=== PATIENT | male | born 1950 | race Caucasian/White ===

== ENCOUNTER 2022-12-23 09:45 | Outpatient (OUT) | payer MEDICARE, BC, SELFPAY ==
[2022-12-23 12:03] LABS: Estimated Average Glucose 151 mg/dL; Glycohemoglobin A1C 6.9 % (4.5-6.2)
== END 2022-12-23 09:46 | disposition home or self-care (01) ==
LOC: LAB 09:49
PROVIDERS: PCP Internal Medicine; Visit Provider Internal Medicine
DX: E11.65 Type 2 diabetes mellitus with hyperglycemia (principal)
CPT/HCPCS: 36415; 83036

== ENCOUNTER 2023-03-23 09:47 | Outpatient (OUT) | payer MEDICARE, BC, SELFPAY ==
[2023-03-23 11:51] LABS: Prostate Specific Antigen Dx 1.57 ng/mL (<=4.00)
== END 2023-03-23 09:48 | disposition home or self-care (01) ==
LOC: LAB 09:49
PROVIDERS: PCP Internal Medicine; Visit Provider Urology
DX: C61 Malignant neoplasm of prostate (principal)
CPT/HCPCS: 36415; 84153

== ENCOUNTER 2023-06-23 08:19 | Outpatient (OUT) | payer MEDICARE, BC, SELFPAY ==
[2023-06-23 09:04] LABS: Basophils Absolute Auto 0.1 10^3/uL (0.0-0.1); Basophils Percent Auto 0.9 % (0.2-2.0); Eosinophils Absolute Auto 0.3 10^3/uL (0.0-0.7); Eosinophils Percent Auto 4.3 % (0.9-7.0); Hematocrit 50.3 % (42.0-54.0); Immature Granulocytes Abs Auto 0.04 10^3/uL (0.00-0.03); Immature Granulocytes Pct Auto 0.6 % (0.0-0.5); Lymphocytes Absolute Auto 1.9 10^3/uL (1.2-3.8); Lymphocytes Percent Auto 27.5 % (20.5-60.0); Mean Corpuscular HGB Conc 33.8 g/dL (29.9-35.2); Mean Corpuscular Volume 94.5 fL (80.0-94.0); Mean Platelet Volume 10.8 fL (9.5-13.5); Monocytes Absolute Auto 0.5 10^3/uL (0.3-0.8); Neutrophils Percent Auto 59.7 % (43.0-75.0); Platelet Count 229 10^3/uL (150-450); Red Blood Count 5.32 10^6/uL (4.70-6.10); Red Cell Distribution Width 12.8 % (11.0-15.0); White Blood Count 6.7 10^3/uL (4.0-11.0)
[2023-06-23 10:46] LABS: Microalbumin Urine Random 1.7 mg/dL (<=30.0)
[2023-06-23 11:23] LABS: Alanine Aminotransferase 52 U/L (16-63); Anion Gap 14.9; BUN Creatinine Ratio 13.5; Calcium 8.8 mg/dL (8.5-10.1); Carbon Dioxide 27.7 mmol/L (21.0-32.0); Chloride 104 mmol/L (98-107); Chol HDL Ratio 2.8; Cholesterol 139 mg/dL (<=200); Estimated GFR (African America >60 (>=60); Estimated GFR (Non-African Ame >60 (>=60); Glucose 137 mg/dL (74-106); HDL Cholesterol 50 mg/dL (40-60); LDL Cholesterol Calculated 70.8 mg/dL; Potassium 3.6 mmol/L (3.5-5.1); Sodium 143 mmol/L (136-145); Triglycerides 91 mg/dL (<=150); VLDL CHOLESTEROL 18.2 mg/dL
[2023-06-23 13:08] LABS: Estimated Average Glucose 157 mg/dL; Glycohemoglobin A1C 7.1 % (4.5-6.2)
== END 2023-06-23 08:20 | disposition home or self-care (01) ==
LOC: LAB 08:21
PROVIDERS: PCP Internal Medicine; Visit Provider Internal Medicine
DX: E11.65 Type 2 diabetes mellitus with hyperglycemia (principal); I10 Essential (primary) hypertension; E78.01 Familial hypercholesterolemia; Z79.899 Other long term (current) drug therapy
CPT/HCPCS: 36415; 80048; 80061; 82043; 83036; 84460; 85025

== ENCOUNTER 2023-07-03 13:54 | Outpatient (OUT) | payer MEDICARE, BC, SELFPAY ==
--- OUTSIDE RECORDS SUMMARY | 2023-07-03 13:59 | XMS_ITS | CCD ---
Author Name Unknown Address [address] [place] [address] Organization [facility] Care Team Providers Care Refinery Operator Name Role Phone Joseph Camacho DO Primary Care Provider López JOHNS, Gerry R Unavailable JOSEPH CAMACHO Primary Care Physician Joseph Camacho DO Primary Care Provider López JOHNS, Gerry R Unavailable Joseph Camacho Unavailable PARKER, DR AUDRA Walsh Admitting Unavailable PARKER, DR AUDRA Walsh Attending Unavailable BALL, DR HORAN Primary Care Unavailable PARKER, DR AUDRA Walsh Consulting Unavailable MENDOZA, GERRY Attending Unavailable BALL, DR HORAN Primary Care Unavailable MENDOZA, GERRY Consulting Unavailable MENDOZA, GERRY Admitting Unavailable BALL, DR HORAN Admitting Unavailable BALL, DR HORAN Attending Unavailable BALL, DR HORAN Consulting Unavailable BALL, DR HORAN Primary Care Unavailable MENDOZA, GERRY Attending Unavailable MENDOZA, GERRY Consulting Unavailable MENDOZA, GERRY Admitting Unavailable BALL, DR HORAN Primary Care Unavailable BALL, DR HORAN Admitting Unavailable BALL, DR HORAN Attending Unavailable BALL, DR HORAN Consulting Unavailable BALL, DR HORAN Primary Care Unavailable MENDOZA, GERRY Attending Unavailable BALL, DR HORAN Primary Care Unavailable MENDOZA, GERRY Consulting Unavailable MENDOZA, GERRY Admitting Unavailable MENDOZA, GERRY Consulting Unavailable BALL, DR HORAN Primary Care Unavailable MENDOZA, GERRY Admitting Unavailable MENDOZA, GERRY Attending Unavailable MENDOZA, GERRY Attending Unavailable BALL, DR HORAN Primary Care Unavailable MENDOZA, GERRY Admitting Unavailable MENDOZA, GERRY Consulting Unavailable ENGELER, DR AUDRA Walsh Consulting Unavailable ZIEBER, DR WILY Pascual Consulting Unavailable AGUBOSIM, SHARYN Consulting Unavailable GUSTAVO JIMÉNEZ Consulting Unavailable Joseph Camacho DO Primary Care Provider López JOHNS, Gerry R Unavailable ENGELER, G BRANDEN Referring Unavailable JOSEPH CAMACHO E Primary Care Unavailable ENGELERLa Attending Unavailable JOSEPH CAMACHO E Primary Care Unavailable ENGELER, G BRANDEN Attending Unavailable ENGELER, G BRANDEN Referring Unavailable MAURI, JOSEPH E Primary Care Unavailable ENGELER, G BRANDEN Referring Unavailable ENGELER, G BRANDEN Referring Unavailable MAURI, JOSEPH E Primary Care Unavailable ENGELER, G BRANDEN Attending Unavailable JOSEPH CAMACHO E Primary Care Unavailable ENGELER, G BRANDEN Referring Unavailable ENGELER, G BRANDEN Referring Unavailable MAURI, JOSEPH E Primary Care Unavailable LENA FERRARA Attending Unavailable MENDOZA, Gerry Pascual Attending Unavailable MENDOZA, Gerry Pascual Attending Unavailable MENDOZA, Gerry Pascual Attending Unavailable MENDOZA, Gerry Pascual Attending Unavailable MENDOZA, Gerry Pascual Attending Unavailable Allergies Allergy Classification Reported Allergen(s) Allergy Type Date of Onset Reaction(s) Facility (1 source) No Known Medication Allergies; Translations: [No Known Medication Allergies] Propensity to adverse reactions (disorder) [facility] Repository Medications Current Medications Medication Drug Class(es) Dates Sig (Normalized) Sig (Original) amLODIPine 5 mg / benazepril hydrochloride 20 mg oral capsule (20 sources) Dihydropyridine Calcium Channel Juan Francisco, Angiotensin Converting Enzyme Inhibitor Start: 01-24-2019 take 1 capsule by mouth once daily amLODIPine-benaze pril 5 mg-20 mg Cap 1 cap(s), Oral, Daily Start Date: 01/24/19 Status: Ordered Comment on above: Take 1 capsule by [facility] once daily. atorvastatin 20 mg oral tablet (19 sources) HMG-CoA Reductase Inhibitor Start: 01-24-2019 take 1 tablet by mouth once daily atorvastatin 20 mg Tab 20 mg = 1 tab(s), Oral, Daily Start Date: 01/24/19 Status: Ordered Comment on above: Take 20 mg by mouth daily at bedtime. hyoscyamine sulfate 0.12 mg / methenamine 118 mg / methylene blue 10 mg / phenyl salicylate 36 mg / sodium phosphate, monobasic 40.8 mg oral capsule (2 sources) Oxidation-Reduction Agent Start: 09-10-2022 Uribel oral capsule 1 cap(s), Oral, BID, 60 cap(s), Refill(s) 4, [facility]/pharmacy #[id number], 175, cm, 09/10/22 10:04:00 EDT, Height/Length Dosing, 88.9, kg, 09/10/22 10:04:00 EDT, Weight Dosing Start Date: 09/10/22 Status: Ordered metFORMIN hydrochloride 500 mg oral tablet (1 source) Biguanide Start: 06-23-2023 take 1 tablet by mouth twice daily metFORMIN HCl 500 MG 1 tablet with a meal Orally twice daily w/ food for 30 days Start by taking 1 daily w/ bkfst and increase to bkfst and supper after one month Jun, Active sildenafil 100 mg oral tablet (4 sources) Phosphodiesterase 5 Inhibitor Start: 12-10-2022 take 1 tablet by mouth once daily as needed Sildenafil Citrate 100 MG 1 tablet as needed Orally Once a day, as needed for ED Dec, Active tadalafil 20 mg oral tablet (5 sources) Phosphodiesterase 5 Inhibitor Tadalafil 20 MG 1 tablet Orally as needed Active tamsulosin hydrochloride 0.4 mg oral capsule (8 sources) alpha-Adrenergic Juan Francisco Start: 09-10-2022 End: 09-05-2023 take 1 capsule by mouth twice daily Flomax 0.4 mg Cap 0.4 mg = 1 cap(s), Oral, BID, X 30 day(s), # 60 cap(s), Refills(s) 11, Pharmacy: [facility]/pharmacy #[id number], 175, cm, 09/10/22 10:04:00 EDT, Height/Length Dosing, 88.9, kg, 09/10/22 10:04:00 EDT, Weight Dosing Start Date: 09/10/22 Stop Date: 09/05/23 Status: Ordered take 1 capsule by [facility] every twenty-four hours Tamsulosin HCl 0.4 MG 1 capsule Orally Once a day Active Comment on above: Take by mouth. Completed/Discontinued Medications Medication Drug Class(es) Dates Sig (Normalized) Sig (Original) ciprofloxacin 500 mg oral tablet (1 source) Quinolone Antimicrobial Start: 09-10-2022 Cipro 500 mg Tab 500 mg = 1 tab(s), Oral, As Directed, Patient to take 1 tab the day before procedure and the 2nd tab the day of procedure once completed, # 2 tab(s), Refills(s) 0, Pharmacy: [facility]/pharmacy #[id number], 175, cm, 09/10/22 10:04:00 EDT, Height/Length Dosing, 88.... Start Date: 09/10/22 Status: Ordered Multivitamins-Minera ls-Lutein (MULTIVITAMIN 50 PLUS) tab (8 sources) Multivitamins-Mi nerals-Lutein (MULTIVITAMIN 50 PLUS) tab Take 1 tablet by mouth once daily. 0 Active Comment on above: Take 1 tablet by carlos manuel th once daily. Naproxen (7 sources) Nonsteroidal Anti-inflammatory Drug Aleve Not-Taking/PRN Aleve Active 24 hr oxybutynin chloride 10 mg extended release oral tablet (5 sources) Cholinergic Muscarinic Antagonist Start: 10-03-2021 End: 04-17-2022 take 1 tablet by mouth once daily oxybutynin ER (DITROPAN XL) 10 mg 24 hr tablet Take 10 mg by mouth once daily. 0 10/03/2021 04/17/2022 Discontinued Comment on above: Take 10 mg by mouth once daily. sulfamethoxazole 800 mg / trimethoprim 160 mg oral tablet (5 sources) Dihydrofolate Reductase Inhibitor Antibacterial, Sulfonamide Antimicrobial Start: 10-03-2021 End: 04-17-2022 take 1 tablet by mouth every twelve hours sulfamethoxazole- trimethoprim (BACTRIM DS,SEPTRA DS) 800-160 mg per tablet Take 1 tablet by mouth q 12 HR. 0 10/03/2021 04/17/2022 Discontinued (Course of therapy completed) Comment on above: Take 1 tablet by carlos manuel th q 12 HR. Problems Active Problems Problem Classification Problem Date Documented Date Episodic/Chronic Calculus of urinary tract (12 sources) History of calculus of kidney; Translations: [Personal history of urinary calculi] Onset: 10-25-2021 08-02-2021 Episodic Cancer of prostate (20 sources) Malignant tumor of prostate; Translations: [Malignant neoplasm of prostate] Onset: 09-23-2021 Chronic Cancer of prostate (1 source) History of malignant neoplasm of prostate; Translations: [Personal history of malignant neoplasm of prostate] Episodic Diabetes mellitus with complications (7 sources) Type 2 diabetes mellitus; Translations: [Type 2 diabetes mellitus with hyperglycemia] Chronic Diabetes mellitus without complication (20 sources) Glycosuria; Translations: [Glycosuria] Onset: 10-25-2021 01-23-2020 Episodic Disorders of lipid metabolism (19 sources) Hyperlipidemia; Translations: [Pure hypercholesterolemia] Onset: 10-25-2021 09-09-2021 Chronic Essential hypertension (15 sources) Hypertensive disorder; Translations: [Essential hypertension] Onset: 06-30-2022 09-09-2021 Chronic Genitourinary symptoms and ill-defined conditions (9 sources) Nocturia; Translations: [Nocturia] Onset: 10-25-2021 Episodic Hyperplasia of prostate (15 sources) Benign prostatic hypertrophy with outflow obstruction; Translations: [Benign prostatic hyperplasia with lower urinary tract symptoms] Onset: 10-05-2017 Chronic Osteoarthritis (7 sources) Osteoarthritis of knee; Translations: [Unilateral primary osteoarthritis, left knee] Chronic Other aftercare (3 sources) Other watermelon inspector (current) drug therapy; Translations: [OTH EQUIPMENT MAINT TECH CURRENT DRUG THERAPY] Onset: 06-30-2022 Episodic Other connective tissue disease (7 sources) History of total knee arthroplasty; Translations: [Presence of left artificial knee joint] Chronic Other diseases of kidney and ureters (4 sources) Hydronephrosis 08-02-2021 Episodic Other male genital disorders (6 sources) Impotence of organic origin; Translations: [Erectile dysfunction due to arterial insufficiency] Chronic Other male genital disorders (3 sources) Erectile dysfunction due to arterial insufficiency; Translations: [Erectile dysfunction due to arterial insufficiency] Chronic Other non-traumatic joint disorders (7 sources) Knee pain; Translations: [Pain in left knee] Episodic Other nutritional; endocrine; and metabolic disorders (2 sources) Overweight in adulthood with body mass index of 25 or more but less than 30; Translations: [Body mass index (BMI) 29.0-29.9, adult] Onset: 11-27-2021 Episodic Other nutritional; endocrine; and metabolic disorders (4 sources) Body mass index 25-29 - overweight 11-11-2019 Episodic Other nutritional; endocrine; and metabolic disorders (4 sources) Overweight; Translations: [Overweight] Episodic Other nutritional; endocrine; and metabolic disorders (2 sources) Overweight Episodic Other screening for suspected conditions (not mental disorders or infectious disease) (5 sources) Raised prostate specific antigen; Translations: [Elevated prostate specific antigen [PSA]] Onset: 10-25-2021 05-24-2021 Episodic Residual codes; unclassified (5 sources) Family history of malignant neoplasm of gastrointestinal tract; Translations: [Family history of colon cancer] Episodic Unclassified (1 source) CONTACT W/AND (SUSP) EXPOS COVID-19; Translations: [CONTACT W/AND (SUSP) EXPOS COVID-19] Onset: 10-02-2021 Past or Other Problems Problem Classification Problem Date Documented Da te Episodic/Chronic Residual codes; unclassified (1 source) Family history of malignant neoplasm of prostate; Translations: [FAMILY HX MALIG NEOPLASM PROSTATE] Onset: 10-25-2021 Episodic Unclassified (5 sources) FOLLOW-UP SURGERY NEC; Translations: [FOLLOW-UP SURGERY NEC] Results Test Name Value Interpretation Reference Range Facility Ambulatory Visit Summaryon 1 Ambulatory Visit Summary LAMONT LUTZ :1950 Visit Date:03/25/2023 Ambulatory Visit Instructions Your Diagnosis Prostate CA BPH with urinary obstruction Tests Performed Urnls Dip Stick Auto w/o Microscopy POC [id number] Your Care Team Attending Physician - LÓPEZ JOHNS, Gerry Pascual Primary Care Physician - JOSEPH CAMACHO DO This Is Your Medications List hyoscyamine/methena/mblue/p henylsal/sodbiphos (Uribel oral capsule) tamsulosin (Flomax 0.4 mg Cap) Contact prescribing physician if questions or concerns amlodipine-benazepril (amLODIPine-benazepril 5 mg-20 mg Cap) atorvastatin (atorvastatin 20 mg Tab) Procedures Performed Cystoscope (09/30/2022), Brachytherapy (10/03/2021), MR/US fusion guided prostate biopsy (07/25/2021), Cystoscopy to remove object (02/07/2020), Lithotripsy (02/02/2020), Colonoscopy (2018), ESWL - Extracorporeal shockwave lithotripsy for renal calculus (03/13/2016), Cystoscopy and retrograde pyelography (02/17/2016), Appendectomy, Bilateral replacement of knee joints. Discharge Vitals Heart Rate (Peripheral) 87 Blood Pressure 127/84 Height 175 cm Height 69 in Weight 88.9 kg Weight 195.58 lb BMI 29.03 What to do next Scheduled Follow-Up Appointments Thursday 10:45 AM EDT With: LÓPEZ JOHNS, Gerry Pascual Where: [facility] Lab Reportson 03-25-2023 Lab Reports [id number] Kimberley [facility] Patient Educationon 03-25-20 Patient Education Oncology Brachytherapy for Prostate Cancer Brachytherapy for prostate cancer is a type of internal radiation treatment that involves placing a source of radiation right inside the prostate gland. This allows the delivery of a higher dose of radiation than would be possible with external radiation therapy treatment. There are many types of brachytherapy: ? Low-dose rate (LDR) therapy. This involves temporary or permanent implants of radioactive seeds or pellets that give off a low dose of radiation. ? Temporary low-dose implants are left in the prostate for 1?7 days. The radioactive material is contained within a delivery tool, which may be a needle, a small, thin tube (catheter), or another type of applicator. You will need to stay in the hospital while the delivery tool and radioactive material are in place. ? Permanent low-dose implants are left in the prostate. They slowly give off radiation for many months after they are inserted. After the radiation is gone, they just stay in the body. They do not cause any harm and are not removed. ? High-dose rate (HDR) therapy. This involves inserting a material that gives off a higher dose of radiation for only a few minutes. The radioactive material is often wires or ribbons contained within a delivery tool (needle, applicator, or catheter). The delivery tool is removed after treatment, and no radioactive material is left in the prostate. In brachytherapy, the radiation does not travel far from the prostate, so healthy tissues around the prostate receive only a small dose of radiation. This helps to protect those tissues from injury. In some cases, brachytherapy may be given along with external beam radiation. Tell a health care provider about: ? Any allergies you have. ? All medicines you are taking, including vitamins, herbs, eye drops, creams, and pgfl-pfx-jsyupib medicines. ? Any problems you or family members have had with anesthetic medicines. ? Any bleeding problems you have. ? Any surgeries you have had. ? Any medical conditions you have. ? Any prostate infections you have had. What are the risks? Generally, this is a safe procedure. However, problems may occur, including: ? Inflammation of the rectum. ? Problems getting or keeping an erection (erectile dysfunction). ? Inability to control when you urinate or have bowel movements (incontinence). ? Damage to nearby structures or organs. ? Diarrhea. ? Bleeding. What happens before the procedure? Staying hydrated Follow instructions from your health care provider about hydration, which may include: ? Up to 2 hours before the procedure ? you may continue to drink clear liquids, such as water, clear fruit juice, black coffee, and plain tea. Eating and drinking restrictions Follow instructions from your health care provider about eating and drinking, which may include: ? 8 hours before the procedure ? stop eating heavy meals or foods, such as meat, fried foods, or fatty foods. ? 6 hours before the procedure ? stop eating light meals or foods, such as toast or cereal. ? 6 hours before the procedure ? stop drinking milk or drinks that contain milk. ? 2 hours before the procedure ? stop drinking clear liquids. Medicines ? Ask your health care provider about: ? Changing or stopping your regular medicines. This is especially important if you are taking diabetes medicines or blood thinners. ? Taking medicines such as aspirin and ibuprofen. These medicines can thin your blood. Do not take these medicines unless your health care provider tells you to take them. ? Taking calw-xlf-mpkgfpo medicines, vitamins, herbs, and supplements. ? Follow your health care provider's instructions about cleaning out your bowels. Surgery safety Ask your health care provider: ? How your surgery site will be marked. ? What steps will be taken to help prevent infection. These may include: ? Removing hair at the procedure site. ? Washing skin with a germ-killing soap. ? Taking antibiotic medicine before and after the procedure. General instructions ? You may have exams or testing done before or after the procedure. Blood or urine samples may be taken. You may need imaging tests, such as a CT scan or an MRI. ? Do not use any products that contain nicotine or tobacco for at least 4 weeks before the procedure. This includes cigarettes, chewing tobacco, and vaping devices, such as e-cigarettes. If you need help quitting, ask your health care provider. ? Plan to have a responsible adult take you home from the hospital or clinic. ? Plan to have a responsible adult care for you for the time you are told after you leave the hospital or clinic. What happens during the procedure? ? An IV will be put into one of the veins in your arm or hand. ? You may be given: ? A medicine to help you relax (sedative). ? A medicine to numb the area (local anesthetic). ? A medicine to make you fall asleep (general anest (more content not included)... Normal [facility] Urology Office/Clinic Noteon 03-25-2023 Urology Office/Clinic Note Chief Complaint 6 month follow up to Cysto w/ PSA HPI Staff 6 month follow up to Cysto done 09/30/22 w/PSA. Current PSA 1.57 done 03/23/23. Previous PSA 1.48 done 09/08/22. Previous DX: BPH w/urinary obstruction, elevated PSA, glucosuria, prostate cancer. S/P Brachytherapy 10/03/21. Started Uribel BID per last visit, and started Flomax 0.4mg BID per last visit. IPSS SCORE 6. Dysuria: denies pain and burning Incomplete bladder emptying: denies Hematuria: denies visible blood Frequency: every 2-3 hours Urgency: denies Nocturia: 2x a night Stream: denies hesitancy, medium stream Leaking: denies Post void dripping: denies Wearing pads/ Depends: denies Urge incontinence: denies Stress incontinence: denies Incontinence without Sensory Awareness: denies Abdominal pain: denies Flank pain: denies Sexual complaints: denies History of Present Illness Tests reviewed: reviewed UA, PSA, consult note I have reviewed the previous health record information and history for this patient from Dr. Mendoza. I have reviewed and verified the staff HPI to be accurate for this encounter. There have been no associated fever, chills, flank pain, or blood in the urine. Denies any urinary infections since last encounter. Review of Systems PHQ Score Initial Depression Screen Score: 0 ROS - Provider Constitutional: denies weight loss, denies hot flashes. Eyes: denies eye problems. Gastrointestinal: denies nausea, denies vomiting. Cardiovascular: denies chest pain or angina. Integumentary: no dryness Musculoskeletal: denies musculoskeletal symptoms. ENMT: denies otolaryngeal symptoms. Respiratory: no shortness of breath. Heme/Lymph: denies easy bleeding tendency, denies easy bruising tendency. Psychiatric: no confusion, no anxiety. Genitourinary: See HPI. Physical Exam Vitals & Measurements HR: 87(Peripheral) BP: 127/84 HT: 69 in HT: 175 cm WT: 88.9 kg WT: 195.58 lb BMI: 29.03 General Appearance: alert, no distress, well nourished, well developed male. Genitourinary: normal scrotum, normal testes, normal urethra, normal epididymis, normal vas deferens/spermatic cord. Flank Pain: none. Bladder: nonpalpable. Assessment/Plan Hematuria workup 09/2022 neg for malignancy. 1. Prostate CA (C61: Malignant neoplasm of prostate) PSA: 10/28/21 - 7.79 03/03/22 - 2.70 09/08/22 - 1.48 03/23/23 - 1.57 MRI fusion prostate bx - Irma 6 (3+3), GG1, x 11 cores S/P Brachytherapy 10/03/21. PSA increased from prior, should be cont to decrease after brachy. Will cont to monitor. Started Uribel bid at prior OV due to burning with urination and urgency. No burning or blood. Follow up 6 mos with PSA or sooner if needed. Pt understands and agrees with plan. 2. BPH with urinary obstruction (N40.1: Benign prostatic hyperplasia with lower urinary tract symptoms) UA today negative for blood and infection. Started Flomax 0.4 mg bid at prior OV due to nocturia q1-2hr. Nocturia decreased to 2x/night. No SEs. Emptying has improved. Pt seems very satisfied with sx control from alpha juan francisco. IPSS 6 (24). Follow-up With When Contact Information LÓPEZ JOHNS, Gerry Pascual, URL [facility] [address], [place] [address]- Additional Instructions: 6 mos PSA Patient Education Brachytherapy for Prostate Cancer Elyse Vang, personally scribed for Dr. Mendoza on 03/25/2023 09:32:16. . Documentation recorded by the scribe, Elyse Blum, accurately reflects the services(s) I performed and decisions made by me. Authenticated by Dr. Mendoza on 03/25/2023 09:33:29. Problem List/Past Medical History Ongoing BMI 29.0-29.9,adult BPH with urinary obstruction Elevated PSA Glucosuria Gross hematuria Hyperlipidemia Hypertension Prostate CA Historical History of kidney stones Hydronephrosis with obstructing calculus Nocturia Procedure/Surgical History Cystoscope (09/30/2022), Brachytherapy (10/03/2021), MR/US fusion guided prostate biopsy (07/25/2021), Cystoscopy to remove object (02/07/2020), Lithotripsy (02/02/2020), Colonoscopy (2018), ESWL - Extracorporeal shockwave lithotripsy for renal calculus (03/13/2016), Cystoscopy and retrograde pyelography (02/17/2016), Appendectomy, Bilateral replacement of knee joints. Medications amLODIPine-benazepril 5 mg-20 mg Cap, 1 cap(s), Oral, Daily atorvastatin 20 mg Tab, 20 mg= 1 tab(s), Oral, Daily Flomax 0.4 mg Cap, 0.4 mg= 1 cap(s), Oral, BID, 11 refills Uribel oral capsule, 1 cap(s), Oral, BID, 4 refills Allergies No Known Medication Allergies Social History Alcohol - Low Risk, 06/24/2021 Current, 1-2 times per month, 01/24/2019 Substance Abuse - Denies Substance Abuse, 06/24/2021 Tobacco - Denies Tobacco Use, 06/24/2021 Former smoker, quit more than 30 days ago Tobacco Use:. Never Smokeless Tobacco Use:. Cigarettes, 03/25/2023 Family History Arthritis: Mother. Hypertension: (more content not included)... [facility] Comment on above: Result Comment: Elec tronically Signed By: Gerry MENDOZA MD\.br\Date and Time Signed: 03/25/23 09:33 EDT\.br\Electronically Co-Signed By: Elyse Blum.br\Date and Time Co-Signed: 03/25/23 09:32 EDT Consultation Noteon 10-22-19 Consultation Note [id number]:[id number] [facility] CNOVon 10-16-2022 CNOV Office Visit (RADTSA ) LAMONT LUTZ ([id number]) 1950 M Date Time Provider Department 10/16/22 2:00 PM La MUNOZ During your visit today, we recorded the following information about you: Temperature Pulse Respiration Blood pressure 97.3 degrees 93/minute 16/minute 150/87 Weight 89.5 kg La Munoz MD 10/16/2022 2:08 PM Signed Radiation Oncology - Follow Up Note PATIENT NAME: Lamont Lutz PATIENT DIAGNOSIS: Prostate adenocarcinoma, initial PSA 5.93, biopsy Theresa score 3 + 3 = 6 (grade group 1), clinical stage T1c, N0, M0, stage I [cT1a-c/T2a, N0, M0, PSA <10, GG 1] (AJCC 8th ed.), s/p MR Targeted biopsy. RADIATION SUMMARY: Prostate I-125 brachytherapy implant, 10/03/2021, 145 Gy, 85 sources, 32.81 mCi. INTERVAL HISTORY: Doing well. Was having some frequency issues with some dysuria, placed on Flomax with significant improvement near resolution. No other new problems. 11/14/21:Doing well. Still with some increased urinary urgency and frequency occasional dysuria. Overall improving. No hematuria. PSA HISTORY: PSA (ng/mL) Date Value 10/28/2021 7.79 PSA. (no units) Date Value 09/08/2022 1.48 04/15/2022 2.03 ALLERGIES No Known Allergies tamsulosin (FLOMAX) 0.4 mg Take by mouth. amLODIPine-benazepril (LOTREL) 5-20 mg per capsule Take 1 capsule by mouth once daily. atorvastatin (LIPITOR) 20 mg tablet Take 20 mg by mouth daily at bedtime. Asvalbxhokaty-Gaoabyms-Phuq in (MULTIVITAMIN 50 PLUS) tab Take 1 tablet by mouth once daily. REVIEW OF SYSTEMS: D/N = 4-6/1-3 Hematuria: no AUA: 19 Bowel movement frequency: 1/day Bowel movement quality: normal Blood per rectum: none Androgen deprivation: Never. PHYSICAL EXAM: BP 150/87 Pulse 93 Temp 36.3 ?C (97.3 ?F) Resp 16 Wt 89.5 kg (197 lb 6.4 oz) SpO2 96% BMI 28.73 kg/m? KPS: 100 General appearance: Alert and oriented. No acute distress. Rectal exam def Extremities: No deformities, edema, skin discoloration, clubbing or cyanosis. Lymph Nodes: No cervical lymphadenopathy, No supraclavicular lymphadenopathy, No axillary lymphadenopathy. Skin: Skin color, texture, turgor normal, no suspicious rashes or lesions. ASSESSMENT/PLAN: Prostate adenocarcinoma, initial PSA 5.93, biopsy Theresa score 3 + 3 = 6 (grade group 1), clinical stage T1c, N0, M0, stage I [cT1a-c/T2a, N0, M0, PSA <10, GG 1] (AJCC 8th ed.), s/p MR Targeted biopsy. Status post prostate brachytherapy implant September 2021. Doing well. PSA continues to decline. Anticipate PSA kevin between 18 and 24 months. He is continue close follow-up with Dr. Mendoza including surveillance of his PSA. Otherwise asked patient come back in 1 year for further close radiation follow-up visit. Signed by: La Munoz MD cc: Joseph Camacho ([facility] [place]) [address] [place] [address] Dr. Mendoza Referring Provider: La MUNOZ [[id number]] Allergies As of Date: 10/16/2022 (No Known Allergies) Date Reviewed: 10/16/2022 Reviewed by: Meche Gusman RN - Fully Assessed Reason for Visit: Prostate Cancer [590] Primary Visit Diagnosis:History of prostate cancer [Z85.46] Order(s):PSA (OUTSIDE) [[id number]] Order #: [id number] Prescriptions as of 10/16/2022 - tamsulosin (FLOMAX) 0.4 mg Take by mouth. - amLODIPine-benazepril (LOTREL) 5-20 mg per capsule Take 1 capsule by mouth once daily. - atorvastatin (LIPITOR) 20 mg tablet Take 20 mg by mouth daily at bedtime. - Sjptyaipqrwkw-Nkxdyeir-Ajld in (MULTIVITAMIN 50 PLUS) tab Take 1 tablet by mouth once daily. Problem List As Of Date 10/16/2022 Noted Resolved Prostate cancer (HCC) [C61] 10/16/2022 10/16/2022 Disposition: Return in about 1 year (around 10/17/2023). Follow-up and Disposition History for Encounter Date Provider Department Center 10/16/2022 [id number] MUNOZ NANCY GALINDO Encounter Status:Closed by La MUNOZ on 10/16/22 Normal [facility] CNOVSPon 10-16-2022 CNOVSP Visit (SP) Office (H EMASA) LAMONT LUTZ ([id number]) 1950 M Date Time Provider Department 10/16/22 2:30 PM LENA FERRARA During your visit today, we recorded the following information about you: Lena Ferrara APRN.CNP 10/16/2022 2:20 PM Signed Lamont Lutz returns for scheduled follow-up. Patient was seen and examined by Dr. Munoz today. He has recovered from brachytherapy to the prostate. He is having some sexual dysfunction. He has tried Cialis in the past without success. I have made him aware that we do have specialist within the [facility] system to help with impotence. Patient was given treatment summary and survivorship care plan for prostate cancer. Lena Ferrara APRN.CNP Referring Provider: La MUNOZ [[id number]] Allergies As of Date: 10/16/2022 (No Known Allergies) Date Reviewed: 10/16/2022 Reviewed by: Lena Ferrara APRN.CNP - Fully Assessed Visit Diagnosis:Prostate cancer (HCC) [C61] Prescriptions as of 10/16/2022 - tamsulosin (FLOMAX) 0.4 mg Take by mouth. - amLODIPine-benazepril (LOTREL) 5-20 mg per capsule Take 1 capsule by mouth once daily. - atorvastatin (LIPITOR) 20 mg tablet Take 20 mg by mouth daily at bedtime. - Ltuegfvmzzwno-Rxzvcbxd-Pjrg in (MULTIVITAMIN 50 PLUS) tab Take 1 tablet by mouth once daily. Problem List As Of Date 10/16/2022 Noted Resolved Prostate cancer (HCC) [C61] 10/16/2022 10/16/2022 Encounter Status:Closed by LENA FERRARA on 10/16/22 Normal [facility] Operative Reporton Operative Report [id number]:127 Normal [facility] Consent for Procedure/Surger yon 09-23-2022 Consent for Procedure/Surgery [id number]:127 Normal [facility] Lab Reportson 09-22-2022 Lab Reports [id number]:127 Normal [facility] Urine Cytology ( Labs)on 0 09-15-2022 Urine Cytology Diagnosis Info Invalid Interpretation Code [facility] Comment on above: Result Comment: A:Ur ine,Urine:Voided Interpretation - MicroScopic Description - Adequacy - Gross Description Site ID:A color Yellow fixative Alcohol Specimen designated Urine received in alcohol preservative and labeled with the patient?s name, consists of 30ml cloudy yellow fluid. Electronically signed by : on: 09/15/2022 09:39:37 Performed By: #### 1 [id number] ####[facility] [address] [place] [address] [place] 09-11-2022 Screens [id number]:127 Normal [facility] Ambulatory Visit Summaryon 0 09-10-2022 Ambulatory Visit Summary LAMONT LUTZ :1950 Visit Date:09/10/2022 Ambulatory Visit Instructions Your Diagnosis Prostate CA BPH with urinary obstruction Glucosuria Gross hematuria Nocturia Tests Performed Urnls Dip Stick Auto w/o Microscopy POC 83455 Your Care Team Attending Physician - Gerry MENDOZA MD Primary Care Physician - JOSEPH CAMACHO DO This Is Your Medications List Contact prescribing physician if questions or concerns amlodipine-benazepril (amLODIPine-benazepril 5 mg-20 mg Cap) atorvastatin (atorvastatin 20 mg Tab) Procedures Performed Brachytherapy (10/03/2021), MR/US fusion guided prostate biopsy (07/25/2021), Cystoscopy to remove object (02/07/2020), Lithotripsy (02/02/2020), Colonoscopy (2018), ESWL - Extracorporeal shockwave lithotripsy for renal calculus (03/13/2016), Cystoscopy and retrograde pyelography (02/17/2016), Appendectomy, Bilateral replacement of knee joints. Discharge Vitals Heart Rate (Peripheral) 89 Blood Pressure 140/87 Height 175 cm Height 69 in Weight 88.9 kg Weight 195.58 lb BMI 29.03 What to do next You Need to Schedule the Following Appointments Follow Up with Gerry MENDOZA MD, [place] When: Where: [facility] [address] [place] [address]- Medications What How Much When Instructions Unchanged amlodipine-benazepril (amLODIPine-benazepril 5 mg-20 mg Cap) 1 Capsules By Mouth Every day Contact prescribing physician if questions or concerns Unchanged atorvastatin (atorvastatin 20 mg Tab) 1 Tablets By Mouth Every day Contact prescribing physician if questions or concerns Test Results Urnls Dip Stick Auto w/o Microscopy POC 27192 (09/10/2022) Bilirubin Urine Dipstick - Negative Blood Urine Dipstick - 3+ Large Glucose Urine Dipstick - 2+ 500 mg/dl Ketones Urine Dipstick - Trace - 5 mg/dl Leukocytes Urine Dipstick - Negative Nitrite Urine Dipstick - Negative Protein Urine Dipstick - 2+ (100 mg/dl) Specific Mobile Urine Dipstick - 1.025 Urine Appearance Urine Dipstick - Clear Urine Color Urine Dipstick - Yellow Urobilinogen Urine Dipstick - Normal 0.2-1 EU/dl pH Urine Dipstick - 5.5 Allergies No Known Medication Allergies Problems Ongoing - Any problem that you are currently receiving treatment for. BMI 29.0-29.9,adult BPH with urinary obstruction Elevated PSA Glucosuria Gross hematuria Hyperlipidemia Hypertension Nocturia Prostate CA Historical - Any problem that you are no longer receiving treatment for. History of kidney stones Hydronephrosis with obstructing calculus Education Materials Prostate Cancer The prostate is a walnut-sized gland that is involved in the production of semen. It is located below a man's bladder, in front of the rectum. Prostate cancer is the abnormal growth of cells in the prostate gland. What are the causes? The exact cause of this condition is not known. What increases the risk? This condition is more likely to develop in men who: ? Are older than age 65. ? Are -Panamanian. ? Are obese. ? Have a family history of prostate cancer. ? Have a family history of breast cancer. What are the signs or symptoms? Symptoms of this condition include: ? A need to urinate often. ? Weak or interrupted flow of urine. ? Trouble starting or stopping urination. ? Inability to urinate. ? Pain or burning during urination. ? Painful ejaculation. ? Blood in urine or semen. ? Persistent pain or discomfort in the lower back, lower abdomen, hips, or upper thighs. ? Trouble getting an erection. ? Trouble emptying the bladder all the way. How is this diagnosed? This condition can be diagnosed with: ? A digital rectal exam. For this exam, a health care provider inserts a gloved finger into the rectum to feel the prostate gland. ? A blood test called a prostate-specific antigen (PSA) test. ? An imaging test called transrectal ultrasonography. ? A procedure in which a sample of tissue is taken from the prostate and examined under a microscope (prostate biopsy). Once the condition is diagnosed, tests will be done to determine how far the cancer has spread. This is called staging the cancer. Staging may involve imaging tests, such as: ? A bone scan. ? A CT scan. ? A PET scan. ? An MRI. The stages of prostate cancer are as follows: ? Stage I. At this stage, the cancer is found in the prostate only. The cancer is not visible on imaging tests and it is usually found by accident, such as during a prostate surgery. ? Stage II. At this stage, the cancer is more advanced than it is in stage I, but the cancer has not spread outside the prostate. ? Stage III. At this stage, the cancer has spread beyond the outer layer of the prostate to nearby tissues. The cancer may be found in the seminal vesicles, which are near the bladder and the prostate. ? (more content not included)... Normal [facility] Patient Educationon 09-11-19 Patient Education Oncology Prostate Cancer The prostate is a walnut-sized gland that is involved in the production of semen. It is located below a man's bladder, in front of the rectum. Prostate cancer is the abnormal growth of cells in the prostate gland. What are the causes? The exact cause of this condition is not known. What increases the risk? This condition is more likely to develop in men who: ? Are older than age 65. ? Are -Panamanian. ? Are obese. ? Have a family history of prostate cancer. ? Have a family history of breast cancer. What are the signs or symptoms? Symptoms of this condition include: ? A need to urinate often. ? Weak or interrupted flow of urine. ? Trouble starting or stopping urination. ? Inability to urinate. ? Pain or burning during urination. ? Painful ejaculation. ? Blood in urine or semen. ? Persistent pain or discomfort in the lower back, lower abdomen, hips, or upper thighs. ? Trouble getting an erection. ? Trouble emptying the bladder all the way. How is this diagnosed? This condition can be diagnosed with: ? A digital rectal exam. For this exam, a health care provider inserts a gloved finger into the rectum to feel the prostate gland. ? A blood test called a prostate-specific antigen (PSA) test. ? An imaging test called transrectal ultrasonography. ? A procedure in which a sample of tissue is taken from the prostate and examined under a microscope (prostate biopsy). Once the condition is diagnosed, tests will be done to determine how far the cancer has spread. This is called staging the cancer. Staging may involve imaging tests, such as: ? A bone scan. ? A CT scan. ? A PET scan. ? An MRI. The stages of prostate cancer are as follows: ? Stage I. At this stage, the cancer is found in the prostate only. The cancer is not visible on imaging tests and it is usually found by accident, such as during a prostate surgery. ? Stage II. At this stage, the cancer is more advanced than it is in stage I, but the cancer has not spread outside the prostate. ? Stage III. At this stage, the cancer has spread beyond the outer layer of the prostate to nearby tissues. The cancer may be found in the seminal vesicles, which are near the bladder and the prostate. ? Stage IV. At this stage, the cancer has spread other parts of the body, such as the lymph nodes, bones, bladder, rectum, liver, or lungs. How is this treated? Treatment for this condition depends on several factors, including the stage of the cancer, your age, personal preferences, and your overall health. Talk with your health care provider about treatment options that are recommended for you. Common treatments include: ? Observation for early stage prostate cancer (active surveillance). This involves having exams, blood tests, and in some cases, more biopsies. For some men, this is the only treatment needed. ? Surgery. Types of surgeries include: ? Open surgery. In this surgery, a larger incision is made to remove the prostate. ? A laparoscopic prostatectomy. This is a surgery to remove the prostate and lymph nodes through several, small incisions. It is often referred to as a minimally invasive surgery. ? A robotic prostatectomy. This is a surgery to remove the prostate and lymph nodes with the help of a robotic arm that is controlled by a computer. ? Orchiectomy. This is a surgery to remove the testicles. ? Cryosurgery. This is a surgery to freeze and destroy cancer cells. ? Radiation treatment. Types of radiation treatment include: ? External beam radiation. This type aims beams of radiation from outside the body at the prostate to destroy cancerous cells. ? Brachytherapy. This type uses radioactive needles, seeds, wires, or tubes that are implanted into the prostate gland. Like external beam radiation, brachytherapy destroys cancerous cells. An advantage is that this type of radiation limits the damage to surrounding tissue and has fewer side effects. ? High-intensity, focused ultrasonography. This treatment destroys cancer cells by delivering high-energy ultrasound waves to the cancerous cells. ? Chemotherapy medicines. This treatment kills cancer cells or stops them from multiplying. ? Hormone treatment. This treatment involves taking medicines that act on one of the male hormones (testosterone): ? By stopping your body from producing testosterone. ? By blocking testosterone from reaching cancer cells. Follow these instructions at home: ? Take oyuy-nah-jaztgrw and prescription medicines only as told by your health care provider. ? Maintain a healthy diet. ? Get plenty of sleep. ? Consider joining a support group for men who have prostate cancer. Meeting with a support group may help you learn to cope with the stress of having cancer. ? Keep all follow-up visits as told by your health care provider. This is important. ? If you have to go to the hospital, notify your cancer specialis (more content not included)... Normal [facility] Urine Cytology ([facility])on 0 09-10-2022 Method of Extraction Voided Normal [facility] Comment on above: Performed By: #### 1 [id number] ####[facility] [id number] [place] [address] Number of Jars 1 Invalid Interpretation Code [facility] Comment on above: Performed By: #### 1 [id number] ####[facility] [address] [place] [address] Specimen Urine Normal [facility] Comment on above: Performed By: #### 1 [id number] ####[facility] [address] [place] [address] Type of Service Prof Only Normal [facility] Comment on above: Performed By: #### 1 [id number] ####[facility] [address] [place] [address] Urology Office/Clinic Noteon 09-10-2022 Urology Office/Clinic Note Chief Complaint 6 month follow up HPI Staff 6 month follow up w/PSA. Current PSA 1.48 done 09/08/22, previous PSA 2.70 done 03/03/22. Previous DX: BPH w/urinary obstruction, elevated PSA, glucosuria, prostate cancer. S/P Brachytherapy 10/03/21. Dysuria: yes pain and burning started after he had Brachytherapy surgery last year in September, Incomplete bladder emptying: denies Hematuria: yes visible blood clot in urine every once in awhile, UA shows LARGE Frequency: yes when intake a lot of fluids Urgency: moderate intermittent Nocturia: sometimes every hour, sometimes every 2 hours Stream: denies hesitancy, denies weak stream Leaking: denies Post void dripping: denies Wearing pads/ Depends: denies Urge incontinence: denies Stress incontinence: denies Incontinence without Sensory Awareness: denies Abdominal pain: denies Flank pain: denies Sexual complaints: denies History of Present Illness Tests reviewed: reviewed UA, PSA. I have reviewed the previous health record information and history for this patient from Dr. Mendoza. I have reviewed and verified the staff HPI to be accurate for this encounter. There have been no associated fever, chills, flank pain, or blood in the urine. Denies any urinary infections since last encounter. Review of Systems PHQ Score Initial Depression Screen Score: 0 ROS - Provider Constitutional: denies weight loss, denies hot flashes. Eyes: denies eye problems. Gastrointestinal: denies nausea, denies vomiting. Cardiovascular: denies chest pain or angina. Integumentary: no dryness Musculoskeletal: denies musculoskeletal symptoms. ENMT: denies otolaryngeal symptoms. Respiratory: no shortness of breath. Heme/Lymph: denies easy bleeding tendency, denies easy bruising tendency. Psychiatric: no confusion, no anxiety. Genitourinary: See HPI. Physical Exam Vitals & Measurements HR: 89(Peripheral) BP: 140/87 HT: 69 in HT: 175 cm WT: 88.9 kg WT: 195.58 lb BMI: 29.03 General Appearance: alert, no distress, well nourished, well developed male. Genitourinary: normal scrotum, normal testes, normal urethra, normal epididymis, normal vas deferens/spermatic cord. Flank Pain: none. Bladder: nonpalpable. Assessment/Plan 1. Prostate CA (C61: Malignant neoplasm of prostate) PSA: 10/28/21 - 7.79 03/03/22 - 2.70 09/08/22 - 1.48 S/P Brachytherapy 10/03/21. Still having burning with urination. Having urgency episodes. PSA continues to decrease post brachy. Will continue to monitor. Offered med to help with burning and urgency. Follow up 6 mos with PSA or sooner if needed. Pt understands and agrees with plan. -Start Uribel BID x 60 ct with 4 refills. Rx sent to [facility]. 2. BPH with urinary obstruction (N40.1: Benign prostatic hyperplasia with lower urinary tract symptoms) IPSS 24. 3. Glucosuria (R81: Glycosuria) UA today shows 500 mg/dl ( >1,000). 4. Gross hematuria (R31.0: Gross hematuria) UA today shows large blood. Sees a blood clot about once a week or once every two weeks. Should not be seeing blood 1 year post brachy. Likely radiation effect, will schedule cysto to rule out bladder malignancy. Will schedule cysto. The risks and benefits for cystoscopy have been discussed. The risks include bleeding, infection, and irritation of the bladder and urinary channel, among others. The patient, after being informed of procedural details and after questions have been answered, wishes to proceed. Full informed consent has been obtained. Will order Local anesthesia. Prophylactic abx sent to [facility]. 5. Nocturia (R35.1: Nocturia) q1-2hr. -Start Flomax 0.4 mg BID. SEs discussed. Rx sent to [facility]. Follow-up With When Contact Information LÓPEZ JOHNS, Gerry Pascual, URL [facility] [address], [place] [address]- Additional Instructions: schedule cysto, 6 mos with PSA Patient Education Prostate Cancer I, Elyse Blum, personally scribed for Dr. Mendoza on 09/10/2022 11:01:19. . Documentation recorded by the scribe, Elyse Blum, accurately reflects the services(s) I performed and decisions made by me. Authenticated by Dr. Mendoza on 09/10/2022 11:05:44. Problem List/Past Medical History Ongoing BMI 29.0-29.9,adult BPH with urinary obstruction Elevated PSA Glucosuria Gross hematuria Hyperlipidemia Hypertension Nocturia Prostate CA Historical History of kidney stones Hydronephrosis with obstructing calculus Procedure/Surgical History Brachytherapy (10/03/2021), MR/US fusion guided prostate biopsy (07/25/2021), Cystoscopy to remove object (02/07/2020), Lithotripsy (02/02/2020), Colonoscopy (2018), ESWL - Extracorporeal shockwave lithotripsy for renal calculus (03/13/2016), Cystoscopy and retrograde pyelography (02/17/2016), Appendectomy, Bilateral replacement of knee joints. Medications amLODIPine-benazepril 5 mg-20 mg Cap, 1 cap(s), Oral, Daily a (more content not included)... Normal [facility] Comment on above: Result Comment: Elec tronically Signed By: LÓPEZ JOHNS, Gerry Pascual\.br\Date and Time Signed: 09/10/22 11:05 EDT\.br\Electronically Co-Signed By: Elyse Blum\.br\Date and Time Co-Signed: 09/10/22 11:01 EDT CBC AUTO DIFFon 06-24-2022 BASO # 0.1 103/ul Normal 0.0-0.1 [facility] Comment on above: Performed By: #### C VDTBH #### [facility] [address] [place] [address] Dr. Mk Griffin Basophils/100 WBC (Bld) 1.0 % Normal 0.2-2.0 [facility] Comment on above: Performed By: #### C VDTBH #### [facility] [address] [place] [address] Dr. Mk Griffin EO # 0.4 103/ul Normal 0.0-0.7 [facility] Comment on above: Performed By: #### C VDTBH #### [facility] [address] [place] [address] Dr. Mk Griffin Eosinophils/100 WBC (Bld) 4.9 % Normal 0.9-7.0 [facility] Comment on above: Performed By: #### C VDTBH #### [facility] [address] [place] [address] Dr. Mk Griffin Erythrocyte distribution width (RBC) [Ratio] 13.0 % Normal 11.0-15.0 [facility] Comment on above: Performed By: #### C VDTBH #### [facility] [address] [place] [address] Dr. Mk Griffin Hematocrit (Bld) [Volume fraction] 48.0 % Normal 42.0-54.0 [facility] Comment on above: Performed By: #### C VDTBH #### [facility] [address] [place] [address] Dr. Mk Griffin Hemoglobin (Bld) [Mass/Vol] 16.2 g/dL Normal 14.0-18.0 [facility] Comment on above: Performed By: #### C VDTBH #### [facility] [address] [place] [address] Dr. Mk Griffin IG # 0.03 10e3/ul Normal 0.00-0.03 [facility] Comment on above: Performed By: #### C VDTBH #### [facility] [address] [place] [address] Dr. Mk Griffin IG % 0.4 % Normal 0.0-0.5 [facility] Comment on above: Performed By: #### C VDTBH #### [facility] [address] [place] [address] Dr. Mk Griffin LYMPH # 1.9 103/ul Normal 1.2-3.8 [facility] Comment on above: Performed By: #### C VDTBH #### [facility] [address] [place] [address] Dr. Mk Griffin Lymphocytes/100 WBC (Bld) 26.4 % Normal 20.5-60.0 [facility] Comment on above: Performed By: #### C VDTBH #### [facility] [address] [place] [address] Dr. Mk Griffin MANUAL DIFF REQ NO Normal [facility] Comment on above: Performed By: #### C VDTBH #### [facility] [address] [place] [address] Dr. Mk Griffin MCH (RBC) [Entitic mass] 31.1 pg Normal 25.9-34.0 [facility] Comment on above: Performed By: #### C VDTBH #### [facility] [address] [place] [address] Dr. Mk Griffin MCHC (RBC) [Mass/Vol] 33.8 g/dL Normal 29.9-35.2 [facility] Comment on above: Performed By: #### C VDTBH #### [facility] [address] [place] [address] Dr. Mk Griffin MCV (RBC) [Entitic vol] 92.1 fL Normal 80.0-94.0 [facility] Comment on above: Performed By: #### C VDTB #### [facility] [address] [place] [address] Dr. Mk Griffin MONO # 0.5 103/ul Normal 0.3-0.8 [facility] [facility] Comment on above: Performed By: #### C VDTBH #### [facility] [address] [place] [address] Dr. Mk Griffin Monocytes/100 WBC (Bld) 7.3 % Normal 1.7-12.0 [facility] Comment on above: Performed By: #### C VDTBH #### [facility] [address] [place] [address] Dr. Mk Griffin NEUT # 4.3 103/ul Normal 1.4-6.5 [facility] Comment on above: Performed By: #### C VDTB #### [facility] [address] [place] [address] Dr. Mk Griffin Neutrophils/100 WBC (Bld) 60.0 % Normal 43.0-75.0 [facility] Comment on above: Performed By: #### C VDTB #### [facility] [address] [place] [address] Dr. Mk Griffin Platelet mean volume (Bld) [Entitic vol] 10.3 fL Normal 9.5-13.5 [facility] Comment on above: Performed By: #### C VDTBH #### [facility] [address] [place] [address] Dr. Mk Griffin PLT 234 103/ul Normal 150-450 [facility] Comment on above: Performed By: #### C VDTBH #### [facility] [address] [place] [address] Dr. Mk Griffin RBC 5.21 106/ul Normal 4.70-6.10 [facility] Comment on above: Performed By: #### C VDTBH #### [facility] [address] [place] [address] Dr. Mk Griffin WBC 7.2 103/ul Normal 4.0-11.0 [facility] Comment on above: Performed By: #### C VDTBH #### [facility] [address] [address] [address] Mk Griffin GLYCOHEMOGLOBIN A1Con 2022 ADA RECOMMENDATION SEE BELOW Normal [facility] Comment on above: Result Comment: ADA RECOMMENDED LIMIT 4.0 - 6.0 ADA THERAPEUTIC TARGET < 7.0 ACTION SUGGESTED > 7.0 Performed By: #### C VDTBH #### [facility] [address] [address] [address] Mk Griffin Glucose [Mass/Vol] 151 mg/dL Normal [facility] Comment on above: Performed By: #### C VDTBH #### [facility] [address] [address] [address] Mk Griffin HbA1c (Bld) [Mass fraction] 6.9 % Critically high 4.5-6.2 [facility] Comment on above: Performed By: #### C VDTBH #### [facility] [address] [place] [address] Dr. Mk Griffin LIPID PROFILEon 06-24-2022 CHOL-HDL RATIO NORM SEE BELOW Normal [facility] Comment on above: Result Comment: 3.3 - 4.4 LOW RISK 4.4 - 7.1 AVERAGE RISK 7.1 - 11.0 MODERATE RISK >11.0 HIGH RISK Performed By: #### L CAROLINE BMP, ALT #### [facility] [address] [place] [address] Dr. Mk Griffin Cholesterol [Mass/Vol] 151 mg/dL Normal <=200 [facility] Comment on above: Performed By: #### L IPID BMP, ALT #### [facility] [address] [place] [address] Dr. Mk Griffin Cholesterol in HDL [Mass/Vol] 52 mg/dL Normal 40-60 [facility] Comment on above: Performed By: #### L IPID, BMP, ALT #### [facility] [address] [place] [address] Dr. Mk Griffin Cholesterol in LDL [Mass/Vol] 74.4 mg/dL Normal [facility] Comment on above: Performed By: #### L IPID, BMP, ALT #### [facility] [address] [address] [address] Mk Griffin Cholesterol.total/ Cholesterol in HDL [Mass ratio] 2.9 {ratio} Normal [facility] Comment on above: Performed By: #### L IPID BMP, ALT #### [facility] [address] [address] [address] Mk Griffin HDL NORMAL > or = 60 mg/dl - LO W CARDIOVASCULAR RISK <40 mg/dl - HIGH CARDIOVASCULAR RISK Normal [facility] Comment on above: Performed By: #### L IPID, BMP, ALT #### [facility] [address] [address] [address] Mk Griffin LDL CALC NORMAL SEE BELOW Normal [facility] Comment on above: Result Comment: <100 mg/dl OPTIMAL 100 - 129 mg/dl NEAR OR ABOVE OPTIMAL 130 - 159 mg/dl BORDERLINE HIGH 160 - 189 mg/dl HIGH >190 mg/dl VERY HIGH Performed By: #### L IPID BMP, ALT #### [facility] [address] [address] [address] Mk Griffin Triglyceride [Mass/Vol] 123 mg/dL Normal <=150 [facility] Comment on above: Performed By: #### L IPPAULA BMP, ALT #### [facility] [address] [address] [address] Mk Griffin VLDL CALC 24.6 mg/dL Normal [facility] Comment on above: Performed By: #### L IPPAULA BMP, ALT #### [facility] [address] [place] [address] Dr. Mk Griffin PROF CHEM 8 (BAS METB)on Anion gap [Moles/Vol] 11.5 mmol/L Normal [facility] Comment on above: Performed By: #### L IPID BMP, ALT #### [facility] [address] [place] [address] Dr. Mk Griffin Calcium [Mass/Vol] 9.0 mg/dL Normal 8.5-10.1 [facility] Comment on above: Performed By: #### L IPID BMP, ALT #### [facility] [address] [address] [address] Mk Griffin Chloride [Moles/Vol] 106 mmol/L Normal 98-107 [facility] Comment on above: Performed By: #### L IPID, BMP, ALT #### [facility] [address] [place] [address] Dr. Mk Griffin CO2 [Moles/Vol] 28.5 mmol/L Normal 21.0-32.0 [facility] Comment on above: Performed By: #### L IPID, BMP, ALT #### [facility] [address] [place] [address] Dr. Mk Griffin Creatinine [Mass/Vol] 0.94 mg/dL Normal 0.70-1.30 [facility] Comment on above: Performed By: #### L IPID, BMP, ALT #### [facility] [address] [place] [address] Dr. Mk Griffin EGFR-AF ENGLISH >60 Normal >=60 [facility] Comment on above: Performed By: #### L IPID, BMP, ALT #### [facility] [address] [place] [address] Dr. Mk Griffin EGFR-NON AF ENGLISH >60 Normal >=60 [facility] Comment on above: Performed By: #### L IPID, BMP, ALT #### [facility] [address] [place] [address] Dr. Mk Griffin Glucose [Mass/Vol] 134 mg/dL Critically high 74-[address] [facility] Comment on above: Performed By: #### L IPID, BMP, ALT #### [facility] [address] [place] [address] Dr. Mk Griffin Potassium [Moles/Vol] 4.0 mmol/L Normal 3.5-5.1 [facility] Comment on above: Performed By: #### L IPID, BMP, ALT #### [facility] [address] [place] [address] Dr. Mk Griffin Sodium [Moles/Vol] 142 mmol/L Normal 136-145 [facility] Comment on above: Performed By: #### L IPID, BMP, ALT #### [facility] [address] [address] [address] Mk Griffin Urea nitrogen [Mass/Vol] 10.0 mg/dL Normal 7.0-18.0 [facility] Comment on above: Performed By: #### L IPID, BMP, ALT #### [facility] [address] [address] [address] Mk Griffin Urea nitrogen/Creatinin e [Mass ratio] 10.6 mg/mg Normal [facility] Comment on above: Performed By: #### L IPID, BMP, ALT #### [facility] [address] [address] [address] Mk Griffin [facility] 06-24-2022 ALT [Catalytic activity/Vol] 49 U/L Normal 16-63 [facility] Comment on above: Performed By: #### L IPID, BMP, ALT #### [facility] [address] [address] [address] Mk Griffin Consultation Noteon 04-25-20 Consultation Note [id number]:[id number] Normal [facility] CNOVon 04-17-2022 [facility] Office Visit (RADTSA ) NAHIDLAMONT ([id number]) 1950 M Date Time Provider Department 04/17/22 1:45 PM La MUNOZ During your visit today, we recorded the following information about you: Temperature Pulse Respiration Blood pressure 97.9 degrees 90/minute 16/minute 137/80 Weight 87.1 kg Vianey Gaspar LPN 04/22/2022 2:28 PM Signed AUA=19 G Branden Munoz MD 04/22/2022 2:28 PM Signed Radiation Oncology - Follow Up Note PATIENT NAME: Lamont Lutz PATIENT DIAGNOSIS: Prostate adenocarcinoma, initial PSA 5.93, biopsy Theresa score 3 + 3 = 6 (grade group 1), clinical stage T1c, N0, M0, stage I [cT1a-c/T2a, N0, M0, PSA <10, GG 1] (AJCC 8th ed.), s/p MR Targeted biopsy. RADIATION SUMMARY: Prostate I-125 brachytherapy implant, 10/03/2021, 145 Gy, 85 sources, 32.81 mCi. INTERVAL HISTORY: Doing well. Still with some increased urinary frequency and occasional urgency. Denies dysuria or hematuria. 11/14/21:Doing well. Still with some increased urinary urgency and frequency occasional dysuria. Overall improving. No hematuria. PSA HISTORY: PSA (ng/mL) Date Value 10/28/2021 7.79 PSA. (no units) Date Value 04/15/2022 2.03 ALLERGIES No Known Allergies oxybutynin ER (DITROPAN XL) 10 mg 24 hr tablet Take 10 mg by mouth once daily. amLODIPine-benazepril (LOTREL) 5-20 mg per capsule Take 1 capsule by mouth once daily. atorvastatin (LIPITOR) 20 mg tablet Take 20 mg by mouth daily at bedtime. Dwthcpkmjvnyg-Jghhbdqf-Lyrx in (MULTIVITAMIN 50 PLUS) tab Take 1 tablet by mouth once daily. sulfamethoxazole-trimethopr im (BACTRIM DS,SEPTRA DS) 800-160 mg per tablet Take 1 tablet by mouth q 12 HR. REVIEW OF SYSTEMS: D/N = 4-6/1-3 Hematuria: no AUA: 19 Bowel movement frequency: 1/day Bowel movement quality: normal Blood per rectum: none Androgen deprivation: Never. PHYSICAL EXAM: BP 137/80 Pulse 90 Temp 36.6 ?C (97.9 ?F) Resp 16 Wt 87.1 kg (192 lb) SpO2 96% BMI 27.95 kg/m? KPS: 100 General appearance: Alert and oriented. No acute distress. Abdomen: Normal abdominal exam, Abdomen soft, non-tender. No masses, organomegaly. Rectal exam def Extremities: No deformities, edema, skin discoloration, clubbing or cyanosis. Lymph Nodes: No cervical lymphadenopathy, No supraclavicular lymphadenopathy, No axillary lymphadenopathy. Skin: Skin color, texture, turgor normal, no suspicious rashes or lesions. ASSESSMENT/PLAN: Prostate adenocarcinoma, initial PSA 5.93, biopsy Irma score 3 + 3 = 6 (grade group 1), clinical stage T1c, N0, M0, stage I [cT1a-c/T2a, N0, M0, PSA <10, GG 1] (AJCC 8th ed.), s/p MR Targeted biopsy. Status post prostate brachytherapy implant September 2021. Doing well. PSA continues to decline. No evidence of recurrence. Recommend follow-up in 6 months repeat PSA. Patient has continued close follow-up with urology. Signed by: La Munoz MD cc: Joseph Camacho ([facility]) [address] [place] [address] Dr. Mendoza Referring Provider: La MUNOZ [[id number]] Allergies As of Date: 04/17/2022 (No Known Allergies) Date Reviewed: 04/17/2022 Reviewed by: Vianey Gaspar LPN - Fully Assessed Reason for Visit: Prostate Cancer [590] Primary Visit Diagnosis:Prostate cancer (HCC) [C61] Order(s):PSA (OUTSIDE) [3325326] Order #: [id number] PSA/PROSTSPECAG DIAG [SQPSA] Order #: [id number] FUTURE Prescriptions as of 04/22/2022 - amLODIPine-benazepril (LOTREL) 5-20 mg per capsule Take 1 capsule by mouth once daily. - atorvastatin (LIPITOR) 20 mg tablet Take 20 mg by mouth daily at bedtime. - Hcltzicqyllpq-Csxfgixt-Qknd in (MULTIVITAMIN 50 PLUS) tab Take 1 tablet by mouth once daily. Problem List As Of Date: 04/17/2022 (None) Visit Notes: >> Vianey Gaspar LPN [facility] Apr 17, 2022 1:23 PM Status: Signed AUA=19 Medications Discontinued During This Encounter Prescriptions - sulfamethoxazole-trimethopr im (BACTRIM DS,SEPTRA DS) 800-160 mg per tablet (Discontinued) Take 1 tablet by mouth q 12 HR. - oxybutynin ER (DITROPAN XL) 10 mg 24 hr tablet (Discontinued) Take 10 mg by mouth once daily. Follow-up and Disposition History for Encounter Date Provider Department Center 04/17/2022 [id number] MUNOZ NANCY GALINDO Encounter Status:Closed by [facility] LAMONT LUT[facility] Chi ([id number]) 1950 M Date Time Provider Department 04/07/22 La MUNOZ NCC During your visit today, we recorded the following information about you: Ally Phelps 04/07/2022 2:24 PM Signed Patient called to move up May appointment d/t traveling in April. Please place orders for PSA to be drawn before appointment. Thanks, Ally Wheeler RN 04/08/2022 10:53 AM Signed PSS- PSA appt has not yet been scheduled AND pt typically has done at [facility]. Thank you JUAN DIEGO Lucas 04/08/2022 11:28 AM Signed Called patient AND he requested orders be faxed to [facility] this time. Ally Phelps Allergies As of Date: 04/07/2022 (No Known Allergies) Date Reviewed: 11/14/2021 Reviewed by: Vianey Gaspar LPN - Fully Assessed Reason for Visit: Orders [681] Primary Visit Diagnosis:Malignant neoplasm of prostate (HCC) [C61] Order(s):PSA/PROSTSPECAG DIAG [SQPSA] Order #: [id number] FUTURE Prescriptions as of 04/08/2022 - sulfamethoxazole-trimethopr im (BACTRIM DS,SEPTRA DS) 800-160 mg per tablet Take 1 tablet by mouth q 12 HR. - oxybutynin ER (DITROPAN XL) 10 mg 24 hr tablet Take 10 mg by mouth once daily. - amLODIPine-benazepril (LOTREL) 5-20 mg per capsule Take 1 capsule by mouth once daily. - atorvastatin (LIPITOR) 20 mg tablet Take 20 mg by mouth daily at bedtime. - Jbrisnwptyyaw-Jsuewirw-Vrki in (MULTIVITAMIN 50 PLUS) tab Take 1 tablet by mouth once daily. Problem List As Of Date: 04/07/2022 (None) Encounter Status:Closed by La MUNOZ on 04/07/22 [facility] CNOVon 11-14-2021 [facility] Office Visit (RADTSA ) LAMONT LUTZ ([id number]) 1950 Date Time Provider Department 11/14/21 11:45 AM La MUNOZ RADLUISA During your visit today, we recorded the following information about you: Temperature Pulse Respiration Blood pressure 97.6 degrees 82/minute 16/minute 130/83 Weight 86.6 kg La Munoz MD 11/21/2021 7:30 AM Signed Radiation Oncology - Follow Up Note PATIENT NAME: Lamont Lutz PATIENT DIAGNOSIS: Prostate adenocarcinoma, initial PSA 5.93, biopsy Irma score 3 + 3 = 6 (grade group 1), clinical stage T1c, N0, M0, stage I [cT1a-c/T2a, N0, M0, PSA <10, GG 1] (AJCC 8th ed.), s/p MR Targeted biopsy. RADIATION SUMMARY: Prostate I-125 brachytherapy implant, 10/03/2021, 145 Gy, 85 sources, 32.81 mCi. INTERVAL HISTORY: Doing well. Still with some increased urinary urgency and frequency occasional dysuria. Overall improving. No hematuria. PSA HISTORY: PSA (ng/mL) Date Value 10/28/2021 7.79 ALLERGIES No Known Allergies amLODIPine-benazepril (LOTREL) 5-20 mg per capsule Take 1 capsule by mouth once daily. atorvastatin (LIPITOR) 20 mg tablet Take 20 mg by mouth daily at bedtime. Zjzhjbwcwesge-Lgbqlxoo-Atnh in (MULTIVITAMIN 50 PLUS) tab Take 1 tablet by mouth once daily. sulfamethoxazole-trimethopr im (BACTRIM DS,SEPTRA DS) 800-160 mg per tablet Take 1 tablet by mouth q 12 HR. oxybutynin ER (DITROPAN XL) 10 mg 24 hr tablet Take 10 mg by mouth once daily. REVIEW OF SYSTEMS: D/N = 4-6/1-3 Hematuria: no AUA:12 Bowel movement frequency: 1/day Bowel movement quality: normal Blood per rectum: none Androgen deprivation: Never. PHYSICAL EXAM: BP 130/83 Pulse 82 Temp 36.4 ?C (97.6 ?F) Resp 16 Wt 86.6 kg (191 lb) SpO2 97% BMI 27.80 kg/m? KPS: 100 General appearance: Alert and oriented. No acute distress. Rectal exam def ASSESSMENT/PLAN: Prostate adenocarcinoma, initial PSA 5.93, biopsy Theresa score 3 + 3 = 6 (grade group 1), clinical stage T1c, N0, M0, stage I [cT1a-c/T2a, N0, M0, PSA <10, GG 1] (AJCC 8th ed.), s/p MR Targeted biopsy. Status post prostate brachytherapy implant September 2021. Patient overall doing well. Slight rise in PSA likely related to post treatment effects. He has further PSA planned later this summer with Dr. Mendoza. His post-implant CT shows excellent prostate coverage and appropriate normal tissue sparing. No change of modification in either the treatment or follow-up plan based on this. Signed by: La Munoz MD cc: Joseph Camacho ([facility]) [address] [place], [place] [id number] Dr. López Gaspar LPN 11/14/2021 11:37 AM Signed AUA= 12 Referring Provider: La MUNOZ [[id number]] Allergies As of Date: 11/14/2021 (No Known Allergies) Date Reviewed: 11/14/2021 Reviewed by: Vianey Gaspar LPN - Fully Assessed Reason for Visit: Prostate Cancer [590] Primary Visit Diagnosis:Prostate cancer (HCC) [C61] Prescriptions as of 11/21/2021 - sulfamethoxazole-trimethopr im (BACTRIM DS,SEPTRA DS) 800-160 mg per tablet Take 1 tablet by mouth q 12 HR. - oxybutynin ER (DITROPAN XL) 10 mg 24 hr tablet Take 10 mg by mouth once daily. - amLODIPine-benazepril (LOTREL) 5-20 mg per capsule Take 1 capsule by mouth once daily. - atorvastatin (LIPITOR) 20 mg tablet Take 20 mg by mouth daily at bedtime. - Efwaobyapvcvt-Tmsrbysg-Kqxe in (MULTIVITAMIN 50 PLUS) tab Take 1 tablet by mouth once daily. Problem List As Of Date: 11/14/2021 (None) Visit Notes: >> Vianey Gaspar LPN [facility] Nov 14, 2021 11:34 AM Status: Signed AUA= 12 Disposition: Return in about 6 months (around 05/16/2022). Follow-up and Disposition History for Encounter Date Provider Department Center 11/14/2021 [id number] MUNOZ [facility] Encounter Status:Closed by La MUNOZ on 11/21/21 Normal [facility] GLYCOHEMOGLOBIN A1Con 2021 ADA RECOMMENDATION SEE BELOW Normal [facility] Comment on above: Result Comment: ADA RECOMMENDED LIMIT 4.0 - 6.0 ADA THERAPEUTIC TARGET < 7.0 ACTION SUGGESTED > 7.0 Performed By: #### C VDTBH #### [facility] [address] [place] [address] Dr. Mk Griffin Glucose [Mass/Vol] 123 mg/dL Normal [facility] Comment on above: Performed By: #### C VDTBH #### [facility] [address] [address] [address] Mk Griffin HbA1c (Bld) [Mass fraction] 5.9 % Normal 4.5-6.2 [facility] Comment on above: Performed By: #### C VDTBH #### [facility] [address] [place] [address] Dr. Mk Griffin PSA SerPl-mCncon 10-28-2021 Prostate specific Ag [Mass/Vol] 7.79 ng/mL High <2.60 [facility] Comment on above: Order Comment: Speci men Type: BLOOD SPECIMEN Ordering Facility: [facility] Address: [address] [place] [id number] Result Comment: Zenaida verdugo PSA test methodology used is the Electrochemiluminescence Immunoassay by [employer]. Total PSA values by differing methodologies cannot be interchanged. For an individual patient, the significance of a PSA level should be interpreted in a broad clinical context, including age, race, family history, digital rectal exam, prostate size, results of prior testing (prostate biopsy, free PSA, PCA3), and use of 5-alpha reductase inhibitors. Considering the high incidence of asymptomatic cancer in the general population that may not pose an ultimate risk to a patient, the decision to recommend urological evaluation or prostate biopsy should be individualized after consideration of all these factors. REFERENCE: Dami Noland M.D., M.P.H., Marty Neumann M.D., Ph.D., Bakari Lawrence M.D., Leyla Wolff, M.P.H., Cait Culver, Sc.Elva. Effect of Verification Bias on Screening for Prostate Cancer by Measurement of Prostatic Specific Antigen. N Engl J Med 2003,349:335-42. Performed By: #### 2 857-1 #### [facility] CLIA [id number] [address] [place] [address] [place] Covid-19 PCR (CVDTB)on 09-07 SARS-CoV-2 (COVID-19) RNA RAFAEL+probe Ql (Unsp spec) Not detected Normal NOT DETECTED [facility] Comment on above: Result Comment: This test is not yet approved or cleared by the [place] FDA. When there are no FDA-approved or cleared tests available, and other criteria are met, FDA can make tests available under an emergency access mechanism called an Emergency Use Authorization (EUA). The EUA for this test is supported by the [employer] of Health and Human Service's (HHS's) declaration that circumstances exist to justify the emergency use of in vitro diagnostics for the detection and/or diagnosis of the virus that causes COVID-19. This EUA will remain in effect (meaning this test can be used) for the duration of the COVID-19 declaration justifying emergency of IVDs, unless it is terminated or revoked by FDA (after which the test may no longer be used). When diagnostic testing is negative, the possibility of a false negative should be considered in the context of a patient's recent exposures and the presence of clinical signs and symptoms consistent with SARS-CoV-2. Performed By: #### C VDTBH #### [facility] [address] [place] [address] Dr. Mk Griffin CBC AUTO DIFFon 09-18-2021 BASO # 0.1 103/ul Normal 0.0-0.1 [facility] Comment on above: Performed By: #### C VDTBH #### [facility] [address] [place] [address] Dr. Mk Griffin Basophils/100 WBC (Bld) 1.1 % Normal 0.2-2.0 [facility] Comment on above: Performed By: #### C VDTBH #### [facility] [address] [place] [address] Dr. Mk Griffin EO # 0.3 103/ul Normal 0.0-0.7 [facility] Comment on above: Performed By: #### C VDTBH #### [facility] [address] [place] [address] Dr. Mk Griffin Eosinophils/100 WBC (Bld) 5.2 % Normal 0.9-7.0 [facility] Comment on above: Performed By: #### C VDTBH #### [facility] [address] [place] [address] Dr. Mk Griffin Erythrocyte distribution width (RBC) [Ratio] 13.3 % Normal 11.0-15.0 [facility] Comment on above: Performed By: #### C VDTBH #### [facility] [address] [place] [address] Dr. Mk Griffin Hematocrit (Bld) [Volume fraction] 51.9 % Normal 42.0-54.0 [facility] Comment on above: Performed By: #### C VDTBH #### [facility] [address] [place] [address] Dr. Mk Griffin Hemoglobin (Bld) [Mass/Vol] 17.4 g/dL Normal 14.0-18.0 [facility] Comment on above: Performed By: #### C VDTBH #### [facility] [address] [place] [address] Dr. Mk Griffin IG # 0.03 10e3/ul Normal 0.00-0.03 [facility] Comment on above: Performed By: #### C VDTBH #### [facility] [address] [place] [address] Dr. Mk Griffin IG % 0.5 % Normal 0.0-0.5 [facility] Comment on above: Performed By: #### C VDTBH #### [facility] [address] [place] [address] Dr. Mk Griffin LYMPH # 2.1 103/ul Normal 1.2-3.8 [facility] Comment on above: Performed By: #### C VDTBH #### [facility] [address] [place] [address] Dr. Mk Griffin Lymphocytes/100 WBC (Bld) 32.2 % Normal 20.5-60.0 [facility] Comment on above: Performed By: #### C VDTBH #### [facility] [address] [place] [address] Dr. Mk Griffin MANUAL DIFF REQ NO Normal [facility] Comment on above: Performed By: #### C VDTBH #### [facility] [address] [place] [address] Dr. Mk Griffin MCH (RBC) [Entitic mass] 31.0 pg Normal 25.9-34.0 [facility] Comment on above: Performed By: #### C VDTBH #### [facility] [address] [place] [address] Dr. Mk Griffin MCHC (RBC) [Mass/Vol] 33.5 g/dL Normal 29.9-35.2 [facility] Comment on above: Performed By: #### C VDTBH #### [facility] [address] [place] [address] Dr. Mk Griffin MCV (RBC) [Entitic vol] 92.3 fL Normal 80.0-94.0 [facility] Comment on above: Performed By: #### C VDTBH #### [facility] [address] [place] [address] Dr. Mk Griffin MONO # 0.5 103/ul Normal 0.3-0.8 [facility] Comment on above: Performed By: #### C VDTBH #### [facility] [address] [place] [address] Dr. Mk Griffin Monocytes/100 WBC (Bld) 7.6 % Normal 1.7-12.0 [facility] Comment on above: Performed By: #### C VDTBH #### [facility] [address] [place] [address] Dr. Mk Griffin NEUT # 3.5 103/ul Normal 1.4-6.5 [facility] Comment on above: Performed By: #### C VDTBH #### [facility] [address] [place] [address] Dr. Mk Griffin Neutrophils/100 WBC (Bld) 53.4 % Normal 43.0-75.0 [facility] Comment on above: Performed By: #### C VDTBH #### [facility] [address] [place] [address] Dr. Mk Griffin Platelet mean volume (Bld) [Entitic vol] 10.3 fL Normal 9.5-13.5 [facility] Comment on above: Performed By: #### C VDTBH #### [facility] [address] [place] [address] Dr. Mk Griffin PLT 218 103/ul Normal 150-450 [facility] Comment on above: Performed By: #### C VDTBH #### [facility] [address] [place] [address] Dr. Mk Griffin RBC 5.62 106/ul Normal 4.70-6.10 [facility] Comment on above: Performed By: #### C VDTBH #### [facility] [address] [address] [address] Mk Griffin WBC 6.6 103/ul Normal 4.0-11.0 [facility] Comment on above: Performed By: #### C VDTB #### [facility] [address] [place] [address] Dr. Mk Griffin PROF CHEM 8 (BAS METB)on Anion gap [Moles/Vol] 12.6 mmol/L Normal [facility] Comment on above: Performed By: #### B MP #### [facility] [address] [place] [address] Dr. Mk Griffin Calcium [Mass/Vol] 8.4 mg/dL Critically low 8.5-10.1 [facility] Comment on above: Performed By: #### B MP #### [facility] [address] [place] [address] Dr. Mk Griffin Chloride [Moles/Vol] 106 mmol/L Normal 98-107 [facility] Comment on above: Performed By: #### B MP #### [facility] [address] [place] [address] Dr. Mk Griffin CO2 [Moles/Vol] 27.5 mmol/L Normal 22.0-30.0 [facility] Comment on above: Performed By: #### B MP #### [facility] [address] [place] [address] Dr. Mk Griffin Creatinine [Mass/Vol] 1.04 mg/dL Normal 0.66-1.25 [facility] Comment on above: Performed By: #### B MP #### [facility] [address] [place] [address] Dr. Mk Griffin EGFR-AF ENGLISH >60 Normal >=60 [facility] Comment on above: Performed By: #### B MP #### [facility] [address] [place] [address] Dr. Mk Griffin EGFR-NON AF ENGLISH >60 Normal >=60 [facility] Comment on above: Performed By: #### B MP #### [facility] [address] [place] [address] Dr. Mk Griffin Glucose [Mass/Vol] 118 mg/dL Critically high 74-[address] [facility] Comment on above: Performed By: #### B MP #### [facility] [address] [place] [address] Dr. Mk Griffin Potassium [Moles/Vol] 4.1 mmol/L Normal 3.4-5.0 [facility] Comment on above: Performed By: #### B MP #### [facility] [address] [place] [address] Dr. Mk Griffin Sodium [Moles/Vol] 142 mmol/L Normal 137-145 [facility] Comment on above: Performed By: #### B MP #### [facility] [address] [place] [address] Dr. Mk Griffin Urea nitrogen [Mass/Vol] 11.0 mg/dL Normal 7.0-18.0 [facility] Comment on above: Performed By: #### B MP #### [facility] [address] [place] [address] Dr. Mk Griffin Urea nitrogen/Creatinin e [Mass ratio] 10.6 mg/mg Normal [facility] Comment on above: Performed By: #### B MP #### [facility] [address] [place] [address] Dr. Mk Griffin PROTIMEon 09-18-2021 INR Coag (PPP) [Relative time] 1.01 {INR} Normal [facility] Comment on above: Performed By: #### P TT, PT #### [facility] [address] [place] [address] Dr. Mk Griffin INR GUIDELINES SEE BELOW Normal [facility] Comment on above: Result Comment: BRYN RED INR: 2.0 - 3.0 CONDITIONS NOT LISTED BELOW 2.5 - 3.5 FOR PROSTHETIC HEART VALVE REPLACEMENT 2.5 - 3.5 RECURRENT THROMBOSIS Performed By: #### P TT, PT #### [facility] [address] [place] [address] Dr. Mk Griffin PT Coag (PPP) [Time] 10.9 s Normal 9.0-11.6 [facility] Comment on above: Performed By: #### P TT, PT #### [facility] [address] [place], [place] [address] Dr. Mk Griffin PTTon 09-18-2021 aPTT Coag (Bld) [Time] 29.0 s Normal 22.3-36.2 [facility] Comment on above: Performed By: #### P TT, PT #### [facility] [address] [place], [place] [address] Dr. Mk Griffin MR prostate wo/w conon 06-04 MR prostate wo/w con [facility] [place] [address] [place] [address] MRI Report Signed Patient: Lamont Lutz MR#: [id number] : 1950 Acct:[id number] Age/Sex: 70 / M ADM Date: 06/03/21 Loc: MR Room: Type: [facility] Attending Dr: Gerry Mendoza MD Ordering Provider: Gerry Mendoza MD Date of Service: 06/03/21 MR/MR prostate wo/w con: R97.20 Copies to: Gerry Mendoza MD MRI OF THE PROSTATE GLAND WITHOUT AND WITH CONTRAST INDICATIONS: Elevated prostate specific antigen. Evaluate for prostate cancer. PSA 5.93. TECHNIQUE: MRI of the prostate gland with and without 20 ML ProHance. PI-RADS v2 Classification* PI-RADS 5 Highly Suspicious for Malignancy PI-RADS 4 Probably Malignant PI-RADS 3 Indeterminate PI-RADS 2 Probably Benign PI-RADS 1 Most Probably Benign *Based Upon ACR Guidelines June 2014. FINDINGS: Prostate Gland Size: The prostate gland measures 4.5 cm AP x 5.1 cm transverse x 5.6 cm craniocaudad consistent with a prostatic gland volume of 66.8 cc. PSA Density: 0.088 ng/mL/cc. Central Zone: No tumor-suspicious regions are identified in the central zone. Transition Zone: There is some nodular enlargement and inhomogeneous signal intensity throughout the transition zone most commonly due to benign prostatic hyperplasia. No tumor-suspicious region is identified within the transition zone. Peripheral Zone: There is a tumor suspicious region, PI-RADS 5, involving the right peripheral zone at the apex. This is centered in the 7 o'clock position. This measures 1.4 x 1.8 x 1.1 cm. this demonstrates non-circumscribed moderate T2 shortening and evidence of restricted diffusion with early contrast enhancement. This is seen on image 17 series 4 and image 19 series 43. There is a tumor suspicious region, PI-RADS 4, involving the left peripheral zone in the mid gland. This is centered in the 5 o'clock position. This demonstrates non-circumscribed moderate T2 shortening and evidence of restricted diffusion with early contrast enhancement. This is best seen on image 22 series 4 and image 24 series 500. Extraprostatic Extension: None. Seminal Vesicle Invasion: None. Pelvic Lymphadenopathy: None. Urinary Bladder: The urinary bladder wall is normal in thickness without evidence of a mass. Rectosigmoid Colon: There is no evidence of diverticulitis or diverticulosis. No rectosigmoid mass is identified. No rectal hemorrhoids are seen. No inguinal hernia is identified. Pelvic Osseous Structures: There is no evidence of osseous metastatic disease at the level of the prostate gland. IMPRESSION: 1. The prostate gland volume equals 66.8 cc. 2. The PSA density equals 0.088 ng/mL/cc. 3. There is advanced nodular enlargement and inhomogeneous signal intensity throughout the transition zone most commonly due to benign prostatic hyperplasia. 4. Tumor suspicious region, PI-RADS 5, involving the right peripheral zone at the apex. This is centered in the 7 o'clock position. 5. Tumor suspicious region, PI-RADS 4, involving the left peripheral zone in the mid gland. This is centered in the 5 o'clock position. 6. There is no evidence of extraprostatic extension of prostate cancer, seminal vesicle invasion or pelvic lymphadenopathy. Electronically signed on Jun 04, 2021 2:49:03 PM COT by: Duke Bay MD Diplomate, [place] [employer] Report Completed: Jun 04, 2021 2:49:03 PM COT This transmission is proprietary, privileged and confidential. It is intended to be communication only for the use of the addressee; access to this message by anyone else is unauthorized. If you are not the intended recipient and have received this communication in error, please notify us immediately. Any other action taken, including but not limited to the disclosure, copying or distribution of this communication is prohibited by law. Transcribed By: 06/04/21 1542 Dictated By: NON STAFF 06/04/21 1449 Signed By: 06/04/21 1542 Normal [facility] ISTAT XRay CREon 06-03-2021 Creatinine [Mass/Vol] 0.9 mg/dL Normal 0.6-1.3 [facility] Comment on above: Result Comment: ER/E [place] physician is notified/shown all ISTAT results. Critical values may be confirmed by laboratory testing if deemed necessary by ER attending doctor. Performed By: #### I SCRE #### [facility] [address] [place] [address] Point of Care testing , ISTAT GFR ( > 60 Normal [facility] Comment on above: Result Comment: GFR estimated reference range: According to KDOQI guidelines, <60 ml/min/1.73m2 is sufficient to diagnose a patient with chronic kidney disease. PERFORMED BY: [place] [address] PATHOLOGIST FINAL INSPECTOR PAPER NAZARIO ARCHIBALD M.D. Performed By: #### I SCRE #### [address] Point of Care testing , ISTAT GFR (Non- Am > 60 Normal [facility] Comment on above: Performed By: #### I SCRE #### [address] Point of Care testing , Vital Signs Date Time Vital Sign Value Performing Clinician Facility 06-12-2023 08:30-0500 Body height 175.26 cm [facility] Other [facility] Other 06-12-2023 08:30-0500 Body mass index (BMI) [Ratio] 29.03 kg/m2 [facility] Other [facility] Other 06-12-2023 08:30-0500 Body weight 89.18 kg [facility] [facility] Other [facility] Other 06-12-2023 08:30-0500 Diastolic blood pressure 88 mm[Hg] Joseph Ball Other [facility] Other 06-12-2023 08:30-0500 Respiratory rate 12 /min Joseph Ball Other [facility] Other 06-12-2023 08:30-0500 Systolic blood pressure 135 mm[Hg] Joseph Ball Other [facility] Other 03-25-2023 08:54-0400 Blood Pressure Location Gerry MENDOZA [facility] 03-25-2023 08:54-0400 Diastolic blood pressure 84 mm[Hg] Gerry MENDOZA [facility] 03-25-2023 08:54-0400 Heart rate 87 /min Gerry MENDOZA [facility] 03-25-2023 08:54-0400 Systolic blood pressure 127 mm[Hg] Gerry MENDOZA [facility] 12-10-2022 08:30-0400 Body height 175.26 cm Joseph Ball Other [facility] Other 12-10-2022 08:30-0400 Body mass index (BMI) [Ratio] 28.7 kg/m2 Joseph Ball Other [facility] Other 12-10-2022 08:30-0400 Body weight 88.18 kg Joseph Ball Other [facility] Other 12-10-2022 08:30-0400 Diastolic blood pressure 84 mm[Hg] Joseph Ball Other [facility] Other 12-10-2022 08:30-0400 Respiratory rate 12 /min Joseph Ball Other [facility] Other 12-10-2022 08:30-0400 Systolic blood pressure 132 mm[Hg] Joseph Camacho Other [facility] [employer] Other 10-16-2022 13:42-0400 Body temperature 97.3 [degF] MEHUL Munoz MD Work Phone: [facility] 10-16-2022 13:42-0400 Body weight 89.54 kg MEHUL Munoz MD Work Phone: [facility] 10-16-2022 13:42-0400 Diastolic blood pressure 87 mm[Hg] MEHUL Munoz MD Work Phone: [facility] 10-16-2022 13:42-0400 Heart rate 93 /min MEHUL Munoz MD Work Phone: [facility] 10-16-2022 13:42-0400 Respiratory rate 16 /min MEHUL Munoz MD Work Phone: [facility] 10-16-2022 13:42-0400 SaO2% (BldA) [Mass fraction] 96 % MEHUL Munoz MD Work Phone: [facility] 10-16-2022 13:42-0400 Systolic blood pressure 150 mm[Hg] MEHUL Munoz MD Work Phone: [facility] 09-10-2022 09:59-0400 Blood Pressure Location Gerry MENDOZA [facility] 09-10-2022 09:59-0400 Diastolic blood pressure 87 mm[Hg] Gerry MENDOZA [facility] 09-10-2022 09:59-0400 Heart rate 89 /min Gerry MENDOZA [facility] 09-10-2022 09:59-0400 Systolic blood pressure 140 mm[Hg] Gerry MENDOZA [facility] 06-11-2022 15:30-0500 Body height 175.26 cm Joseph Ball Other [facility] Other 06-11-2022 15:30-0500 Body mass index (BMI) [Ratio] 28.76 kg/m2 Joseph Ball Other [facility] Other 06-11-2022 15:30-0500 Body weight 88.36 kg Joseph Ball Other [facility] Other 06-11-2022 15:30-0500 Diastolic blood pressure 84 mm[Hg] Joseph Ball Other [facility] Other 06-11-2022 15:30-0500 Respiratory rate 12 /min Joseph Ball Other [facility] Other 06-11-2022 15:30-0500 Systolic blood pressure 122 mm[Hg] Joseph Ball Other [facility] Other 04-17-2022 13:23-0500 Body temperature 97.9 [degF] MEHUL Munoz MD Work Phone: [facility] 04-17-2022 13:23-0500 Body weight 87.09 kg MEHUL Munoz MD Work Phone: [facility] 04-17-2022 13:23-0500 Diastolic blood pressure 80 mm[Hg] MEHUL Munoz MD Work Phone: [facility] 04-17-2022 13:23-0500 Heart rate 90 /min MEHUL Munoz MD Work Phone: [facility] 04-17-2022 13:23-0500 Respiratory rate 16 /min MEHUL Munoz MD Work Phone: [facility] 04-17-2022 13:23-0500 SaO2% (BldA) [Mass fraction] 96 % MEHUL Munoz MD Work Phone: [facility] 04-17-2022 13:23-0500 Systolic blood pressure 137 mm[Hg] MEHUL Munoz MD Work Phone: [facility] 03-05-2022 09:26-0400 Blood Pressure Location Gerry MENDOZA [facility] 03-05-2022 09:26-0400 Diastolic blood pressure 86 mm[Hg] Gerry MENDOZA [facility] 03-05-2022 09:26-0400 Heart rate 87 /min Gerry MENDOZA [facility] 03-05-2022 09:26-0400 Systolic blood pressure 139 mm[Hg] Gerry MENDOZA [facility] 11-27-2021 09:37-0400 Blood Pressure Location Gerry MENDOZA [facility] 11-27-2021 09:37-0400 Diastolic blood pressure 89 mm[Hg] Gerry MENDOZA [facility] 11-27-2021 09:37-0400 Heart rate 80 /min Gerry MENDOZA [facility] 11-27-2021 09:37-0400 Systolic blood pressure 142 mm[Hg] Gerry MENDOZA [facility] 11-14-2021 11:32-0400 Body temperature 97.59 [degF] MEHUL Munoz MD Work Phone: [facility] 11-14-2021 11:32-0400 Body weight 86.64 kg MEHUL Munoz MD Work Phone: [facility] 11-14-2021 11:32-0400 Diastolic blood pressure 83 mm[Hg] MEHUL Munoz MD Work Phone: [facility] 11-14-2021 11:32-0400 Heart rate 82 /min MEHUL Munoz MD Work Phone: [facility] 11-14-2021 11:32-0400 Respiratory rate 16 /min MEHUL Munoz MD Work Phone: [facility] 11-14-2021 11:32-0400 SaO2% (BldA) [Mass fraction] 97 % MEHUL Munoz MD Work Phone: [facility] 11-14-2021 11:32-0400 Systolic blood pressure 130 mm[Hg] MEHUL Munoz MD Work Phone: [facility] 10-10-2021 09:17-0400 Body temperature 96.69 [degF] MEHUL Munoz MD Work Phone: [facility] 10-10-2021 09:17-0400 Body weight 88.45 kg MEHUL Munoz MD Work Phone: [facility] 10-10-2021 09:17-0400 Diastolic blood pressure 80 mm[Hg] MEHUL Munoz MD Work Phone: [facility] 10-10-2021 09:17-0400 Heart rate 98 /min MEHUL Munoz MD Work Phone: [facility] 10-10-2021 09:17-0400 Respiratory rate 16 /min MEHUL Munoz MD Work Phone: [facility] 10-10-2021 09:17-0400 SaO2% (BldA) [Mass fraction] 98 % MEHUL Munoz MD Work Phone: [facility] 10-10-2021 09:17-0400 Systolic blood pressure 137 mm[Hg] MEHUL Munoz MD Work Phone: [facility] Encounters Encounter Date Encounter Type Care Provider Facility Start: 09-21-2023 ambulatory Gerry MENDOZA Facili ty:[facility] Start: 06-23-2023 End: 06-23-2023 ambulatory Joseph Camacho Other [facility] Other Start: 06-23-2023 Telephone encounter Joseph SCHULTE [facility] Start: 06-12-2023 End: 06-12-2023 ambulatory Joseph Camacho Other [facility] Other Start: 06-12-2023 Patient encounter procedure Joseph Camacho [facility] Start: 03-25-2023 End: 03-26-2023 ambulatory Gerry MENDOZA Facility:[facility] Galindo Start: 03-25-2023 End: 03-25-2023 Patient encounter procedure Gerry MENDOZA [facility] Start: 12-24-2022 End: 12-24-2022 ambulatory Joseph Camacho Other [facility] Other Start: 12-24-2022 Telephone encounter Joseph SCHULTE G [facility] Start: 12-10-2022 End: 12-10-2022 ambulatory Joseph Camacho Other [facility] Other Start: 12-10-2022 Office outpatient vi sit 25 minutes Joseph Camacho [facility] Start: 10-20-2022 End: 10-20-2022 ambulatory Joseph Camacho Other [facility] Other Start: 10-20-2022 Telephone encounter Joseph SCHULTE [facility] Start: 10-16-2022 End: 10-16-2022 ambulatory La MUNOZ Facility:[facility] Start: 10-16-2022 End: 10-16-2022 ambulatory Lena Ferrara APRN.CNP Work Phone: Hematology/Oncology Comment on above: Prostate cancer (HCC ) Start: 10-16-2022 End: 10-16-2022 Patient encounter procedure La Munoz MD Work Phone: Radiation Oncology Comment on above: History of prostate cancer (Primary Dx) Start: 09-30-2022 End: 10-01-2022 ambulatory Gerry MENDOZA Facility:[id number] Start: 09-10-2022 Telephone encounter Joseph SCHULTE [facility] Start: 09-10-2022 End: 09-11-2022 ambulatory Gerry MENDOZA [facility] Other Start: 09-10-2022 End: 09-10-2022 Patient encounter procedure Gerry MENDOZA [facility] [employer] Start: 09-08-2022 End: 09-09-2022 ambulatory GERRY MENDOZA Facility:[facility] Start: 06-24-2022 End: 06-25-[address] JOSEPH CAMACHO Facility:[facility] Start: 06-11-2022 End: 06-11-2022 ambulatory Joseph Camacho Other [facility] Other Start: 06-11-2022 Patient encounter procedure Joseph Camacho [facility] Start: 04-17-2022 End: 04-17-2022 ambulatory JOSEPH CAMACHO Facility:[facility] Start: 04-17-2022 End: 04-17-2022 Patient encounter procedure La Munoz MD Work Phone: Radiation Oncology Comment on above: Prostate cancer (HCC ) (Primary Dx) Start: 04-15-2022 End: 04-16-[address] AUDRA MUNOZ Facility:[facility] Start: 03-05-2022 End: 03-05-2022 Patient encounter procedure Gerry MENDOZA [facility] [employer] Start: 03-03-2022 End: 03-04-2022 ambulatory GERRY MENDOZA Facility:[facility] Start: 11-27-2021 End: 11-27-2021 Patient encounter procedure Gerry MENDOZA [facility] Start: 11-14-2021 End: 11-14-2021 ambulatory La MUNOZ Facility:[facility] Start: 11-14-2021 End: 11-14-2021 Patient encounter procedure La Munoz MD Work Phone: Radiation Oncology Comment on above: Prostate cancer (HCC ) (Primary Dx) Start: 11-14-2021 End: 11-15-[address] JOSEPH CAMACHO Facility:[facility] Start: 11-01-2021 Patient encounter procedure La Munoz MD Work Phone: [facility] Start: 11-01-2021 Radiation Oncology Note La Munoz MD Work Phone: Radiation Oncology Comment on above: Simulation Note Start: 11-01-2021 End: 11-01-2021 ambulatory JOSEPH CAMACHO Facility:[facility] Start: 10-28-2021 End: 10-28-2021 ambulatory La MUNOZ Facility:[facility] Start: 10-14-2021 Patient encounter procedure [facility] Provider [facility] Department Start: 10-10-2021 End: 10-10-2021 Patient encounter procedure La Munoz MD Work Phone: Radiation Oncology Comment on above: Prostate cancer (HCC ) (Primary Dx) Start: 10-03-2021 End: 10-03-2021 ambulatory GERRY MENDOZA Facility:[facility] Start: 10-03-2021 End: 10-03-2021 Patient encounter procedure La Munoz MD Work Phone: Radiation Oncology Comment on above: Malignant neoplasm o f prostate (HCC) (Primary Dx) Start: 10-02-2021 Encounter for preprocedural laboratory examination GERRY MENDOZA [facility] Start: 09-30-2021 End: 10-01-2021 ambulatory GERRY MENDOZA Facility:[facility] Start: 09-30-2021 End: 10-01-2021 Encounter for preprocedural laboratory examination GERRY MENDOZA Facility:[facility] Start: 09-23-2021 Encounter for preprocedural cardiovascular examination GERRY MENDOZA [facility] Start: 09-23-2021 Encounter for preprocedural laboratory examination GERRY MENDOZA [facility] Start: 09-18-2021 End: 09-19-2021 ambulatory GERRY MENDOZA Facility:[facility] Start: 09-18-2021 End: 09-19-2021 Encounter for preprocedural cardiovascular examination GERRY MENDOZA Facility:[facility] Procedures Date Procedure Procedure Detail Performing Clinician Start: 09-30-2022 Cystoscope, device (physical object) Gerry MENDOZA Start: 09-08-2022 End: 09-08-2022 PSA screening [facility] Provider Comment on above: Performed By: #### C VDTBH #### [facility] [address] [place] [address] Dr. Mk Griffin Start: 04-15-2022 End: 04-15-2022 PSA screening [facility] Provider Comment on above: Performed By: #### P SAD #### [facility] [address] [address] [address] Mk Griffin Start: 03-03-[address] AUDRA MUNOZ Comment on above: Performed By: #### P SAD #### [facility] [address] [place] [address] Dr. Mk Griffin Start: 10-03-2021 Brachytherapy Gerry CHACON Start: 07-25-2021 MRI-US fusion guided prostate biopsy Gerry MENDOZA Start: 02-07-2020 Cystoscopy to remove object Gerry MENDOZA Start: 02-02-2020 Lithotripsy Gerry ROJOS Start: 06-08-2018 Colonoscopy Gerry QUINTERO TERS Start: 03-13-2016 Extracorporeal shock wave lithotripsy of calculus of kidney Gerry LÓPEZ Comment on above: w/ Left stent remova l Start: 02-17-2016 Cystoscopy and retro grade pyelography Gerry MENDOZA Comment on above: w/ left stent placee ment Appendectomy Gerry MENDOZA Bilateral replacemen t of knee joints Gerry MENDOZA Plan of Treatment Date Care Activity Detail Author Start: 02-06-2023 Influenza vaccination INFLUENZ A (Season Ended) [facility] Start: 10-15-2022 End: 12-15-2022 Prostate specific Ag [Mass/volume] in Serum or Plasma PSA/PROSTSPECAG DIAG Lab Routine Prostate cancer ([facility]) Expected: 10/15/2022, Expires: 12/15/2022 [facility] Work Phone: Comment on above: Expected: 10/15/2022 , Expires: 12/15/2022 Start: 06-08-2022 ADVANCE DIRECTIVE DISCUSSION ADVANCE DIRECTIVE DISCUSSION [facility] Start: 06-08-2022 DEPRESSION ASSESSMENT DEPRESSION ASS ESSMENT [facility] Start: 02-06-2022 Influenza vaccination [facility] Start: 11-10-2021 End: 01-10-2022 Prostate specific Ag [Mass/volume] in Serum or Plasma PSA/PROSTSPECAG DIAG Lab Routine Prostate cancer ([facility]) Expected: 11/10/2021 (Approximate), Expires: 01/10/2022 [facility] Work Phone: Comment on above: Expected: 11/10/2021 (Approximate), Expires: 01/10/2022 Start: 09-15-2021 COVID-19 VACCINE (4 - Booster for Pfizer series) COVID-19 VACCINE (4 - Booster for Pfizer series) [facility] Start: 07-12-2021 COVID-19 VACCINE (4 - Booster for Pfizer series) COVID-19 VACCINE (4 - Booster for Pfizer series) [facility] Start: 07-12-2021 COVID-19 VACCINE (5 - Booster for Pfizer series) COVID-19 VACCINE (5 - Booster for Pfizer series) [facility] Start: 06-08-2021 ADVANCE DIRECTIVE DISCUSSION ADVANCE DIRECTIVE DISCUSSION [facility] Start: 06-08-2021 DEPRESSION ASSESSMENT DEPRESSION ASS ESSMENT [facility] Start: 10-10-2016 PNEUMOCOCCAL: 65+ (1 - PCV) PNEUMOCOCCAL: 65+ (1 - PCV) [facility] Start: 10-10-2016 PNEUMOVAX AGE 65 AND OVER WITH 5YR LOOKBACK (#1) PNEUMOVAX AGE 65 AND OVER WITH 5YR LOOKBACK (#1) [facility] Start: 10-10-2001 SHINGRIX VACCINE (1 of 2) SHINGRIX VACCINE (1 of 2) [facility] Start: 10-10-1996 COLOGUARD (FIT-DNA) COLOGUARD (FIT-D NA) [facility] Start: 10-10-1996 Colonoscopy COLONOSCOPY [facility] Start: 10-10-1996 COLORECTAL CANCER SCREENING COLORECTAL CANCER SCREENING [facility] Start: 10-10-[address] COLONOGRAPHY [facility] Start: 10-10-1996 DIABETES SCREEN DIABETES SCREEN [facility] Start: 10-10-1996 FECAL OCCULT BLOOD FECAL OCCULT BLOO D [facility] Start: 10-10-1996 SIGMOIDOSCOPY SIGMOIDOSCOPY [facility] Start: 10-10-1986 LIPID SCREEN LIPID SCREEN [facility] Start: 10-10-1970 SHINGRIX VACCINE (1 of 2) SHINGRIX VACCINE (1 of 2) [facility] Start: 10-10-1970 Urine microalbumin profile DTAP,TDAP,TD (1 - Tdap) [facility] Start: 10-10-1969 HEPATITIS C SCREENING HEPATITIS C [facility] Start: 1962 Adult depression screening assessment DEPRESSION SCREENING [facility] Start: 10-10-1957 PNEUMOCOCCAL: 65+ (1 - PCV) PNEUMOCOCCAL: 65+ (1 - PCV) [facility] Start: 1950 ABDOMINAL AORTIC ANEURYSM SCREENING ABDOMINAL AORTIC ANEURYSM SCREENING [facility] Immunizations Immunization Date Immunization Notes Care Provider Kelly rodriguez 06-12-2023 influenza, high dose seasonal, preservative-free Joseph Camacho Other [facility] Other 05-17-2021 SARS-CoV-2 (COVID-19 ) mRNA BNT-162b2 spencer MENDOZA [facility] 05-08-2021 SARS-CoV-2 (COVID-19 ) mRNA BNT-162b2 vax Gerry MENDOZA [facility] 11-01-2020 SARS-CoV-2 (COVID-19 ) mRNA BNT-162b2 vax Gerry MENDOZA [facility] 10-27-2020 SARS-CoV-2 (COVID-19 ) mRNA BNT-162b2 vax Gerry MENDOZA [facility] 10-09-2020 SARS-CoV-2 (COVID-19 ) mRNA BNT-162b2 vax Gerry MENDOZA [facility] 05-13-2019 pneumococcal polysaccharide vaccine, 23 valent Joseph Camacho Other [facility] Other 05-28-2018 pneumococcal conjuga te vaccine, 13 valent Gerrysaira MENDOZA [facility] 11-12-2004 hepatitis B vaccine, adult dosage Gerry MENDOZA [facility] 06-11-2004 hepatitis B vaccine, adult dosage Gerry MENDOZA [facility] 05-07-2004 hepatitis B vaccine, adult dosage Gerry MENDOZA [facility] Payers Date Payer Category Payer Unknown [place] [id number] 2020-Present [phone] [address] [place] [address] Indemnity [id number] 2020 Unknown [place]TONIO [place] [id number] 2020-Present [phone] [address] [place] [address] Indemnity [id number] 2016 Medicare MEDICARE MEDICAR E A AND B [id number] 2016-Present [phone] [place] [address] Medicare [id number] 2016 Medicare MEDICARE MEDICAR E A AND B [id number] 2016-Present [phone] [place] [address] Medicare [id number] 1959 [facility] [id number] 1959 Medicare [id number] 1951 Unknown [id number] [id number]. 2.59 1951 Unknown [id number] [id number]. 2.593 1951 Unknown [id number] [id number]. 2.593 1951 Unknown [id number] [id number]. 2.593 1951 Unknown [id number] 2.16.840.1.128401.3.579. 2.593 1951 Unknown [id number] 2.16.840.1.022597.3.579. 2.593 1951 Unknown [id number] 2.16.840.1.761631.3.579. 2.593 1951 Unknown [id number] 2.16.840.1.812818.3.579. 2.593 1951 Unknown [id number] 2.16.840.1.356939.3.579. 2.727 1951 Unknown [id number] 2.16.840.1.465079.3.579. 2.727 1951 Unknown [id number] 2.16.840.1.809945.3.579. 2.727 1951 Unknown [id number] 2.16.840.1.268121.3.579. 2.727 1950 Unknown [id number]. 2.727 Social History Date Type Detail Facility Start: 08-14-2021 End: 03-25-2023 Tobacco smoking status NHIS Ex-smoker [facility] Comment on above: Quit in 1978 End: 06-08-1978 History of tobacco use Current smoker [facility] End: 06-08-1978 History of tobacco use Cigarette Smoker [facility] Start: 08-14-2021 End: 04-17-2022 Cigarettes smoked current (pack per day) - Reported 1 [facility] Start: 08-14-2021 End: 04-17-2022 Tobacco use and exposure Smokeless tobacco non-user [facility] Start: 08-14-2021 End: 10-16-2022 Alcohol intake Current drinker of alcohol (finding) [facility] Start: 08-14-2021 History SDOH Alcohol Comment Occasional [facility] Start: 1950 Sex Assigned At Male [facility] Start: 09-30-2021 End: 04-17-2022 Exposure to SARS-CoV-2 (event) Not sure [facility] Tobacco smoking status Never [facility] [employer] Comment on above: Quit in 1978 Sex Assigned At Male [facility] [employer] Functional Status Date Assessment Result Facility 03-25-2023 Functional Status N/A [facility] 09-10-2022 Functional Status N/A [facility] 03-05-2022 Functional Status N/A [facility] 11-27-2021 Functional Status N/A [facility] [employer] Clinical Notes 10-03-2021 to 06-23-2023 Note Date & Type Note Facility 06-23-2023 Evaluation note Encounter Date Diagnosis Assessment Notes Jun, Type 2 diabetes mellitus with hyperglycemia , without long-term current use of insulin (ICD-10 - E11.65) [facility] Other 01-05-2024 Evaluation note* Encounter Date Diagnosis Assessment Notes Treatment Notes Treatment Clinical Notes Jun, Medicare annual wellness visit, subsequent (ICD-10 - Z00.00) Personalized health advice was given to the beneficiary including a written plan for screenings discussed and provided. Advanced care planning reviewed and/or information given as requested. Additional counseling was provided here today in regards to, [ ]. The above visit was performed by [ ], under direct supervision of [ ]. Document reviewed and amended by provider signed below. Jun, Primary hypertension (ICD-10 - I10) This patient is instructed to consume a healthy, low-fat, low-salt diet. They are also encouraged to continue exercise to achieve/maintain a normal BMI. Jun, Type 2 diabetes mellitus with hyperglycemia, without long-term current use of insulin (ICD-10 - E11.65) This patient is following a comprehensive diabetic treatment plan. They are checking their feet daily for calluses and nonhealing ulcers. They are being seen for yearly dilated eye examinations. Goals: SBP less than 130, LDL less than 100, FBS less than 140, A1C less than 7%. They are checking their BS daily, will which are reviewed at the office visit. Continue regular routine monitoring of A1C,] Microalbumin, Dilated eye exam and Foot exam Jun, Hyperlipidemia type II (ICD-10 - E78.01) Instructed on diet and exercise with continued statin therapy.Discussed the beneficial effects of lowering cholesterol in reducing the risk for cerebrovascular and cardiovascular disease. Jun, Erectile dysfunction due to arterial insufficiency (ICD-10 - N52.01) Continue medical treatment. Jun, Overweight (ICD-10 - E66.3) This patient has been instructed on a low-fat, high-fiber diet. They are instructed to reduce calories, portion sizes and snacks. It is recommended that they exercise for 30 minutes, 3-5 times weekly. Jun, Benign prostatic hyperplasia with lower urinary tract symptoms (ICD-10 - N40.1) Symptoms tolerable. f/u Jun, Nocturia (ICD-10 - R35.1) Jun, Prostate cancer (ICD-10 - C61) brachytherapy PSA trending down Continue serial PSA f/u Jun, High risk medication use (ICD-10 - Z79.899) [facility] Other 10-18-2023 Hospital Discharge instructions Patient Education 03/25/2023 09:31:18 Brachytherapy for Prostate Cancer Brachytherapy for Prostate Cancer Brachytherapy for prostate cancer is a type of internal radiation treatment that involves placing asource of radiation right inside the prostate gland. This allows the delivery of a higher dose of radiation than would be possible with external radiation therapy treatment. There are many types of brachytherapy: Low-dose rate (LDR) therapy. This involves temporary or permanent implants of radioactive seeds or pellets that give off a low dose of radiation. ?Temporary low-dose implants are left in the prostate for 1 7 days. The radioactive material is contained within a delivery tool, which may be a needle, a small, thin tube (catheter), or another typeof applicator. You will need to stay in the hospital while the delivery tool and radioactive material are in place. ?Permanent low-dose implants are left in the prostate. They slowly give off radiation for many months after they are inserted. After the radiation is gone, they just stay in the body. They do not cause any harm and are not removed. High-dose rate (HDR) therapy. This involves inserting a material that gives off a higher dose of radiation for only a few minutes. The radioactive material is often wires or ribbons contained within a delivery tool (needle, applicator, or catheter). The delivery tool is removed after treatment, andno radioactive material is left in the prostate. In brachytherapy, the radiation does not travel far from the prostate, so healthy tissues around the prostate receive only a small dose of radiation. This helps to protect those tissues from injury. In some cases, brachytherapy may be given along with external beam radiation. Tell a health care provider about: Any allergies you have. All medicines you are taking, including vitamins, herbs, eye drops, creams, and relj-cfk-fgqdipz medicines. Any problems you or family members have had with anesthetic medicines. Any bleeding problems you have. Any surgeries you have had. Any medical conditions you have. Any prostate infections you have had. What are the risks? Generally, this is a safe procedure. However, problems may occur, including: Inflammation of the rectum. Problems getting or keeping an erection (erectile dysfunction). Inability to control when you urinate or have bowel movements (incontinence). Damage to nearby structures or organs. Diarrhea. Bleeding. What happens before the procedure? Staying hydrated Follow instructions from your health care provider about hydration, which may include: Up to 2 hours before the procedure you may continue to drink clear liquids, such as water, clear fruit juice, black coffee, and plain tea. Eating and drinking restrictions Follow instructions from your health care provider about eating and drinking, which may include: 8 hours before the procedure stop eating heavy meals or foods, such as meat, fried foods, or fatty foods. 6 hours before the procedure stop eating light meals or foods, such as toast or cereal. 6 hours before the procedure stop drinking milk or drinks that contain milk. 2 hours before the procedure stop drinking clear liquids. Medicines Ask your health care provider about: ?Changing or stopping your regular medicines. This is especially important if you are taking diabetes medicines or blood thinners. ?Taking medicines such as aspirin and ibuprofen. These medicines can thin your blood. Do not take these medicines unless your health care provider tells you to take them. ?Taking xdiy-wip-fbaspns medicines, vitamins, herbs, and supplements. Follow your health care provider's instructions about cleaning out your bowels. Surgery safety Ask your health care provider: How your surgery site will be marked. What steps will be taken to help prevent infection. These may include: ?Removing hair at the procedure site. ?Washing skin with a germ-killing soap. ?Taking antibiotic medicine before and after the procedure. General instructions You may have exams or testing done before or after the procedure. Blood or urine samples may be taken. You may need imaging tests, such as a CT scan or an MRI. Do not use any products that contain nicotine or tobacco for at least 4 weeks before the procedure.This includes cigarettes, chewing tobacco, and vaping devices, such as e-cigarettes. If you need help quitting, ask your health care provider. Plan to have a responsible adult take you home from the hospital or clinic. Plan to have a responsible adult care for you for the time you are told after you leave the hospital or clinic. What happens during the procedure? An IV will be put into one of the veins in your arm or hand. You may be given: ?A medicine to help you relax (sedative). ?A medicine to numb the area (local anesthetic). ?A medicine to make you fall asleep (general anesthetic). A thin, flexible tube (Joaquin catheter) might be put into your penis, through your urethra, and intoyour bladder to drain your urine. Your surgeon will insert the radioactive material. The method used will depend on whether you are receiving temporary or permanent brachytherapy. Temporary low-dose or high-dose brachytherapy A delivery tool (needle, applicator, or catheter) will be put into the prostate. It will be inserted through a body cavity, like the rectum, or through the perineum, which is the area beneath the scrotum. An X-ray, ultrasound, MRI, or CT scan will be used to guide the delivery tool into the prostate. Radioactive seeds, pellets, wires, or ribbons will be fed through the delivery tool. If the high-dose method is used: ?The radioactive material will be left in for a few minutes and then removed. ?When the treatment is finished, the delivery tool will be removed. If the low-dose method is used: ?The delivery tool containing the radioactive material will stay in place for 1 7 days. ?You will stay in the hospital while the implant is in place. ?When the treatment is finished, the radioactive material and delivery tool will be removed. Permanent low-dose brachytherapy A tube or needle will be used to inject small, radioactive seeds or pellets into your prostate. The needle or tube will be removed, leaving the seeds or pellets in the prostate. The procedure may vary among health care providers and hospitals. What happens after the procedure? Your blood pressure, heart rate, breathing rate, and blood oxygen level will be monitored until youleave the hospital or clinic. If you were given a sedative during the procedure, it can affect you for several hours. Do not drive or operate machinery until your health care provider says that it is safe. If radiation seeds were left in your prostate, be sure you understand any safety precautions you are to follow at home. Summary Brachytherapy for prostate cancer is a type of radiation treatment that involves placing a source of radiation right inside the prostate gland. There are several types of brachytherapy for prostate cancer: low-dose temporary treatment, low-dose permanent treatment, and high-dose temporary treatment. The amount of time that the source of radiation is left in your prostate will depend on the type ofbrachytherapy you are having. This information is not intended to replace advice given to you by your health care provider. Make sure you discuss any questions you have with your health care provider. Document Revised: 08/21/2021 Document Reviewed: 08/21/2021 [employer] Patient Education 2022 [employer]. Follow Up Care 09/10/2022 11:05:18 With:LÓPEZ JOHNS, Gerry Pascual, URL Address: [facility] [address] [place] [address]- When: Unknown [facility] [place] 07-05-2023 Evaluation note* Encounter Date Diagnosis Assessment Notes Treatment Notes Treatment Clinical Notes Dec, Primary hypertension (ICD-10 - I10) This patient is instructed to consume a healthy, low-fat, low-salt diet. They are also encouraged to continue exercise to achieve/maintain a normal BMI. Dec, Type 2 diabetes mellitus with hyperglycemia, without long-term current use of insulin (ICD-10 - E11.65) This patient is following a comprehensive diabetic treatment plan. They are checking their feet daily for calluses and nonhealing ulcers. They are being seen for yearly dilated eye examinations. Goals: SBP less than 130, LDL less than 100, FBS less than 140, AC and A1C less than 7%. They are checking their BS daily, will which are reviewed at the office visit. Continue regular routine monitoring of A1C,] Microalbumin, Dilated eye exam and Foot exam Dec, Hyperlipidemia type II (ICD-10 - E78.01) Instructed on diet and exercise with continued statin therapy.Discussed the beneficial effects of lowering cholesterol in reducing the risk for cerebrovascular and cardiovascular disease. Dec, Erectile dysfunction due to arterial insufficiency (ICD-10 - N52.01) Dec, Overweight (ICD-10 - E66.3) This patient has been instructed on a low-fat, high-fiber diet. They are instructed to reduce calories, portion sizes and snacks. It is recommended that they exercise for 30 minutes, 3-5 times weekly. Dec, Benign prostatic hyperplasia with lower urinary tract symptoms (ICD-10 - N40.1) Dec, Nocturia (ICD-10 - R35.1) Dec, Prostate cancer (ICD-10 - C61) brachytherapy No s/s recurrence. s/p brachytherapy, f/u Urology Dec, Other This patient is following a comprehensive diabetic treatment plan. They are checking their feet daily for calluses and nonhealing ulcers. They are being seen for yearly dilated eye examinations. Goals: SBP less than 130, LDL less than 100, FBS less than 140, AC and A1C less than 7%. They are checking their BS daily, will which are reviewed at the office visit. Continue regular routine monitoring of A1C,] Microalbumin, Dilated eye exam and Foot exam [facility] Other 05-15-2023 Evaluation note* Encounter Date Diagnosis Assessment Notes Treatment Notes Treatment Clinical Notes October, Prostate cancer (ICD-10 - C61) brachytherapy [facility] Other 05-11-2023 NoteHNO ID: [id number] Author: Lena Ferrara APRN.MEMBERSHIP COORDINATOR Service: ? Author Type: Nurse Practitioner Type: Progress Notes Filed: 10/16/2022 2:20 PM Note Text: Lamont Lutz returns for scheduled follow-up. Patient was seen and examined by Dr. Munoz today. He has recovered from brachytherapy to the prostate. He is having some sexual dysfunction. He has tried Cialis in the past without success. I have made him aware that we do have specialist within the [facility] system to help with impotence. Patient was given treatment summary and survivorship care plan for prostate cancer. Lena Ferrara APRN.[facility]05-11-2023 NoteHNO ID: [id number] Author: La Munoz MD Service: ? Author Type: Physician Type: Progress Notes Filed: 10/16/2022 2:08 PM Note Text: Radiation Oncology - Follow Up Note PATIENT NAME: Lamont Lutz PATIENT DIAGNOSIS: Prostate adenocarcinoma, initial PSA 5.93, biopsy Irma score 3 + 3 = 6 (grade group 1), clinical stage T1c, N0, M0, stage I [cT1a-c/T2a, N0, M0, PSA <10, GG 1] (AJCC 8th ed.), s/p MR Targeted biopsy. RADIATION SUMMARY: Prostate I-125 brachytherapy implant, 10/03/2021, 145 Gy, 85 sources, 32.81 mCi. INTERVAL HISTORY: Doing well. Was having some frequency issues with some dysuria, placed on Flomax with significant improvement near resolution. No other new problems. 11/14/21:Doing well. Still with some increased urinary urgency and frequency occasional dysuria. Overall improving. No hematuria. PSA HISTORY: PSA (ng/mL) Date Value 10/28/2021 7.79 PSA. (no units) Date Value 09/08/2022 1.48 04/15/2022 2.03 ALLERGIES No Known Allergies tamsulosin (FLOMAX) 0.4 mg Take by mouth. amLODIPine-benazepril (LOTREL) 5-20 mg per capsule Take 1 capsule by mouth once daily. atorvastatin (LIPITOR) 20 mg tablet Take 20 mg by mouth daily at bedtime. Lzxuqepfeetbv-Zpbwfskm-Noyezi (MULTIVITAMIN 50 PLUS) tab Take 1 tablet by mouth once daily. REVIEW OF SYSTEMS: D/N = 4-6/1-3 Hematuria: no AUA: 19 Bowel movement frequency: 1/day Bowel movement quality: normal Blood per rectum: none Androgen deprivation: Never. PHYSICAL EXAM: BP 150/87 Pulse 93 Temp 36.3 ?C (97.3 ?F) Resp 16 Wt 89.5 kg (197 lb 6.4 oz) SpO2 96% BMI 28.73 kg/m? KPS: 100 General appearance: Alert and oriented. No acute distress. Rectal exam def Extremities: No deformities, edema, skin discoloration, clubbing or cyanosis. Lymph Nodes: No cervical lymphadenopathy, No supraclavicular lymphadenopathy, No axillary lymphadenopathy. Skin: Skin color, texture, turgor normal, no suspicious rashes or lesions. ASSESSMENT/PLAN: Prostate adenocarcinoma, initial PSA 5.93, biopsy Irma score 3 + 3 = 6 (grade group 1), clinical stage T1c, N0, M0, stage I [cT1a-c/T2a, N0, M0, PSA <10, GG 1] (AJCC 8th ed.), s/p MR Targeted biopsy. Status post prostate brachytherapy implant September 2021. Doing well. PSA continues to decline. Anticipate PSA kevin between 18 and 24 months. He is continue close follow-up with Dr. Mendoza including surveillance of his PSA. Otherwise asked patient come back in 1 year for further close radiation follow-up visit. Signed by: La Munoz MD cc: Joseph Camacho ([facility]) [address] [place] [address] [facility] History of Present illness Narrative* Lena Ferrara APRN.CNP - 10/16/2022 2:13 PM EDT Lamont Lutz returns for scheduled follow-up. Patient was seen and examined by Dr. Munoz today.He has recovered from brachytherapy to the prostate. He is having some sexual dysfunction. He has tried Cialis in the past without success. I have made him aware that we do have specialist within [facility] system to help with impotence. Patient was given treatment summary and survivorship care plan for prostate cancer. Lena Ferrara APRN.CNP documented in this [facility] History of Past illness Narrative* Problem Noted Date Resolved Date Prostate cancer 10/16/2022 10/16/2022 documented as of this encounter (statuses as of 10/16/2022) [facility] History of Past illness Narrative* Problem Noted Date Resolved Date Prostate cancer 10/16/2022 10/16/2022 documented as of this encounter (statuses as of 10/16/2022) [facility] History of Present illness Narrative* La Munoz MD - 10/16/2022 1:42 PM EDT Radiation Oncology - Follow Up Note PATIENT NAME: Lamont Lutz PATIENT DIAGNOSIS: Prostate adenocarcinoma, initial PSA 5.93, biopsy Theresa score 3 + 3 = 6 (grade group 1), clinical stage T1c, N0, M0, stage I [cT1a-c/T2a, N0, M0, PSA <10, GG 1] (AJCC 8th ed.), s/p MRTargeted biopsy. RADIATION SUMMARY: Prostate I-125 brachytherapy implant, 10/03/2021, 145 Gy, 85 sources, 32.81 mCi. INTERVAL HISTORY: Doing well. Was having some frequency issues with some dysuria, placed on Flomax with significant improvement near resolution. No other new problems. 11/14/21:Doing well. Still with some increased urinary urgency and frequency occasional dysuria. Overall improving. No hematuria. PSA HISTORY: PSA (ng/mL) Date Value 10/28/2021 7.79 PSA. (no units) Date Value 09/08/2022 1.48 04/15/2022 2.03 ALLERGIES No Known Allergies tamsulosin (FLOMAX) 0.4 mg Take by mouth. amLODIPine-benazepril (LOTREL) 5-20 mg per capsule Take 1 capsule by mouth once daily. atorvastatin (LIPITOR) 20 mg tablet Take 20 mg by mouth daily at bedtime. Bnxtfgkrkehjx-Lsoalhcj-Xxjmwb (MULTIVITAMIN 50 PLUS) tab Take 1 tablet by mouth once daily. REVIEW OF SYSTEMS: D/N = 4-6/1-3 Hematuria: no AUA: 19 Bowel movement frequency: 1/day Bowel movement quality: normal Blood per rectum: none Androgen deprivation: Never. PHYSICAL EXAM: BP 150/87 Pulse 93 Temp 36.3 C (97.3 F) Resp 16 Wt 89.5 kg (197 lb 6.4 oz) SpO2 96% BMI28.73 kg/m KPS: 100 General appearance: Alert and oriented. No acute distress. Rectal exam def Extremities: No deformities, edema, skin discoloration, clubbing or cyanosis. Lymph Nodes: No cervical lymphadenopathy, No supraclavicular lymphadenopathy, No axillary lymphadenopathy. Skin: Skin color, texture, turgor normal, no suspicious rashes or lesions. ASSESSMENT/PLAN: Prostate adenocarcinoma, initial PSA 5.93, biopsy Irma score 3 + 3 = 6 (grade group 1), clinical stage T1c, N0, M0, stage I [cT1a-c/T2a, N0, M0, PSA <10, GG 1] (AJCC 8th ed.), s/p MR Targeted biopsy. Status post prostate brachytherapy implant September 2021. Doing well. PSA continues to decline. Anticipate PSA kevin between 18 and 24 months. He is continueclose follow-up with Dr. Mendoza including surveillance of his PSA. Otherwise asked patient come back in 1 year for further close radiation follow-up visit. Signed by: La Munoz MD cc: Joseph Camacho ([facility]) [address] [place] [address] Dr. Mendoza documented in this encounterThe [facility] Evaluation note* Encounter Date Diagnosis Assessment Notes Treatment Notes Treatment Clinical Notes Sep, Prostate cancer (ICD-10 - C61) brachytherapy [facility] Other 04-05-2023 Hospital Discharge instructions Patient Education 09/10/2022 10:52:16 Prostate Cancer Prostate Cancer The prostate is a walnut-sized gland that is involved in the production of semen. It is located below a man's bladder, in front of the rectum. Prostate cancer is the abnormal growth of cells in the prostate gland. What are the causes? The exact cause of this condition is not known. What increases the risk? This condition is more likely to develop in men who: Are older than age 65. Are -[place]. Are obese. Have a family history of prostate cancer. Have a family history of breast cancer. What are the signs or symptoms? Symptoms of this condition include: A need to urinate often. Weak or interrupted flow of urine. Trouble starting or stopping urination. Inability to urinate. Pain or burning during urination. Painful ejaculation. Blood in urine or semen. Persistent pain or discomfort in the lower back, lower abdomen, hips, or upper thighs. Trouble getting an erection. Trouble emptying the bladder all the way. How is this diagnosed? This condition can be diagnosed with: A digital rectal exam. For this exam, a health care provider inserts a gloved finger into the rectum to feel the prostate gland. A blood test called a prostate-specific antigen (PSA) test. An imaging test called transrectal ultrasonography. A procedure in which a sample of tissue is taken from the prostate and examined under a microscope (prostate biopsy). Once the condition is diagnosed, tests will be done to determine how far the cancer has spread. This is called staging the cancer. Staging may involve imaging tests, such as: A bone scan. A CT scan. A PET scan. An MRI. The stages of prostate cancer are as follows: Stage I. At this stage, the cancer is found in the prostate only. The cancer is not visible on imaging tests and it is usually found by accident, such as during a prostate surgery. Stage II. At this stage, the cancer is more advanced than it is in stage I, but the cancer has not spread outside the prostate. Stage III. At this stage, the cancer has spread beyond the outer layer of the prostate to nearby tissues. The cancer may be found in the seminal vesicles, which are near the bladder and the prostate. Stage IV. At this stage, the cancer has spread other parts of the body, such as the lymph nodes, bones, bladder, rectum, liver, or lungs. How is this treated? Treatment for this condition depends on several factors, including the stage of the cancer, your age, personal preferences, and your overall health. Talk with your health care provider about treatment options that are recommended for you. Common treatments include: Observation for early stage prostate cancer (active surveillance). This involves having exams, blood tests, and in some cases, more biopsies. For some men, this is the only treatment needed. Surgery. Types of surgeries include: ?Open surgery. In this surgery, a larger incision is made to remove the prostate. ?A laparoscopic prostatectomy. This is a surgery to remove the prostate and lymph nodes through several, small incisions. It is often referred to as a minimally invasive surgery. ?A robotic prostatectomy. This is a surgery to remove the prostate and lymph nodes with the help ofa robotic arm that is controlled by a computer. ?Orchiectomy. This is a surgery to remove the testicles. ?Cryosurgery. This is a surgery to freeze and destroy cancer cells. Radiation treatment. Types of radiation treatment include: ?External beam radiation. This type aims beams of radiation from outside the body at the prostate to destroy cancerous cells. ?Brachytherapy. This type uses radioactive needles, seeds, wires, or tubes that are implanted into the prostate gland. Like external beam radiation, brachytherapy destroys cancerous cells. An advantage is that this type of radiation limits the damage to surrounding tissue and has fewer side effects. High-intensity, focused ultrasonography. This treatment destroys cancer cells by delivering high-energy ultrasound waves to the cancerous cells. Chemotherapy medicines. This treatment kills cancer cells or stops them from multiplying. Hormone treatment. This treatment involves taking medicines that act on one of the male hormones (testosterone): ?By stopping your body from producing testosterone. ?By blocking testosterone from reaching cancer cells. Follow these instructions at home: Take tmmh-nxn-vaouoyp and prescription medicines only as told by your health care provider. Maintain a healthy diet. Get plenty of sleep. Consider joining a support group for men who have prostate cancer. Meeting with a support group mayhelp you learn to cope with the stress of having cancer. Keep all follow-up visits as told by your health care provider. This is important. If you have to go to the hospital, notify your cancer specialist (oncologist). Treatment for prostate cancer may affect sexual function. Continue to have intimate moments with your partner. This may include touching, holding, hugging, and caressing. Contact a health care provider if: You have trouble urinating. You have blood in your urine. You have pain in your hips, back, or chest. Get help right away if: You have weakness or numbness in your legs. You cannot control urination or your bowel movements (incontinence). You have trouble breathing. You have sudden chest pain. You have chills or a fever. Summary The prostate is a walnut-sized gland that is involved in the production of semen. It is located below a man's bladder, in front of the rectum. Prostate cancer is the abnormal growth of cells in the prostate gland. Treatment for this condition depends on several factors, including the stage of the cancer, your age, personal preferences, and your overall health. Talk with your health care provider about treatment options that are recommended for you. Consider joining a support group for men who have prostate cancer. Meeting with a support group mayhelp you learn to cope with the stress of having cancer. This information is not intended to replace advice given to you by your health care provider. Make sure you discuss any questions you have with your health care provider. Document Released: 05/25/2006 Document Revised: 05/07/2018 Document Reviewed: 02/02/2017 [employer] Patient Education [employer] [facility] 03/05/2022 10:08:53 With:LÓPEZ JOHNS, Gerry Pascual, URL Address: [facility] [address], [place] [address]- When: Unknown [facility] Nick 01-04-2023 Evaluation note* Encounter Date Diagnosis Assessment Notes Treatment Notes Treatment Clinical Notes Jun, Medicare annual wellness visit, subsequent (ICD-10 - Z00.00) Jun, IFG (impaired fasting glucose) (ICD-10 - R73.01) This patient is following a comprehensive diabetic treatment plan. They are checking their feet daily for calluses and nonhealing ulcers. They are being seen for yearly dilated eye examinations. Goals: SBP less than 130, LDL less than 100, FBS less than 140, AC and A1C less than 7%. They are checking their BS daily, will which are reviewed at the office visit. Jun, Hyperlipidemia type II (ICD-10 - E78.01) Diet and exercise with continued statin therapy. Jun, Prostate cancer (ICD-10 - C61) Surviellance w/ serial PSA. s/p brachytherapy Reviewed Urology notes, f/u as scheduled Jun, Primary hypertension (ICD-10 - I10) This patient is instructed to consume a healthy, low-fat, low-salt diet. They are also encouraged to continue exercise to achieve/maintain a normal BMI. Jun, High risk medication use (ICD-10 - Z79.899) Jun, Other Personalized he alth advice was given to the beneficiary including a written plan for screenings discussed and provided. Advanced care planning reviewed and/or information given as requested. Additional counseling was provided here today in regards to, ( ). The above visit was performed by ( ), under direct supervision of ( ). Document reviewed and amended by provider signed below. [facility] Other 11-10-2022 NoteHNO ID: [id number] Author: La Munoz MD Service: ? Author Type: Physician Type: Progress Notes Filed: 04/22/2022 2:28 PM Note Text: Radiation Oncology - Follow Up Note PATIENT NAME: Lamont Lutz PATIENT DIAGNOSIS: Prostate adenocarcinoma, initial PSA 5.93, biopsy Theresa score 3 + 3 = 6 (grade group 1), clinical stage T1c, N0, M0, stage I [cT1a-c/T2a, N0, M0, PSA <10, GG 1] (AJCC 8th ed.), s/p MR Targeted biopsy. RADIATION SUMMARY: Prostate I-125 brachytherapy implant, 10/03/2021, 145 Gy, 85 sources, 32.81 mCi. INTERVAL HISTORY: Doing well. Still with some increased urinary frequency and occasional urgency. Denies dysuria or hematuria. 11/14/21:Doing well. Still with some increased urinary urgency and frequency occasional dysuria. Overall improving. No hematuria. PSA HISTORY: PSA (ng/mL) Date Value 10/28/2021 7.79 PSA. (no units) Date Value 04/15/2022 2.03 ALLERGIES No Known Allergies oxybutynin ER (DITROPAN XL) 10 mg 24 hr tablet Take 10 mg by mouth once daily. amLODIPine-benazepril (LOTREL) 5-20 mg per capsule Take 1 capsule by mouth once daily. atorvastatin (LIPITOR) 20 mg tablet Take 20 mg by mouth daily at bedtime. Lhyiaptinbjut-Babwcdxr-Mvafxc (MULTIVITAMIN 50 PLUS) tab Take 1 tablet by mouth once daily. sulfamethoxazole-trimethoprim (BACTRIM DS,SEPTRA DS) 800-160 mg per tablet Take 1 tablet by mouth q 12 HR. REVIEW OF SYSTEMS: D/N = 4-6/1-3 Hematuria: no AUA: 19 Bowel movement frequency: 1/day Bowel movement quality: normal Blood per rectum: none Androgen deprivation: Never. PHYSICAL EXAM: BP 137/80 Pulse 90 Temp 36.6 ?C (97.9 ?F) Resp 16 Wt 87.1 kg (192 lb) SpO2 96% BMI 27.95 kg/m? KPS: 100 General appearance: Alert and oriented. No acute distress. Abdomen: Normal abdominal exam, Abdomen soft, non-tender. No masses, organomegaly. Rectal exam def Extremities: No deformities, edema, skin discoloration, clubbing or cyanosis. Lymph Nodes: No cervical lymphadenopathy, No supraclavicular lymphadenopathy, No axillary lymphadenopathy. Skin: Skin color, texture, turgor normal, no suspicious rashes or lesions. ASSESSMENT/PLAN: Prostate adenocarcinoma, initial PSA 5.93, biopsy Theresa score 3 + 3 = 6 (grade group 1), clinical stage T1c, N0, M0, stage I [cT1a-c/T2a, N0, M0, PSA <10, GG 1] (AJCC 8th ed.), s/p MR Targeted biopsy. Status post prostate brachytherapy implant September 2021. Doing well. PSA continues to decline. No evidence of recurrence. Recommend follow-up in 6 months repeat PSA. Patient has continued close follow-up with urology. Signed by: La Munoz MD cc: Joseph Camacho ([facility]) [address] [place] [address] Dr. MendzoaThe [facility]11-[facility] History of Present illness Narrative* La Munoz MD - 04/17/2022 1:31 PM EST Radiation Oncology - Follow Up Note PATIENT NAME: Lamont Lutz PATIENT DIAGNOSIS: Prostate adenocarcinoma, initial PSA 5.93, biopsy Irma score 3 + 3 = 6 (grade group 1), clinical stage T1c, N0, M0, stage I [cT1a-c/T2a, N0, M0, PSA <10, GG 1] (AJCC 8th ed.), s/p MRTargeted biopsy. RADIATION SUMMARY: Prostate I-125 brachytherapy implant, 10/03/2021, 145 Gy, 85 sources, 32.81 mCi. INTERVAL HISTORY: Doing well. Still with some increased urinary frequency and occasional urgency. Denies dysuria or hematuria. 11/14/21:Doing well. Still with some increased urinary urgency and frequency occasional dysuria. Overall improving. No hematuria. PSA HISTORY: PSA (ng/mL) Date Value 10/28/2021 7.79 PSA. (no units) Date Value 04/15/2022 2.03 ALLERGIES No Known Allergies oxybutynin ER (DITROPAN XL) 10 mg 24 hr tablet Take 10 mg by mouth once daily. amLODIPine-benazepril (LOTREL) 5-20 mg per capsule Take 1 capsule by mouth once daily. atorvastatin (LIPITOR) 20 mg tablet Take 20 mg by mouth daily at bedtime. Whizdrhsvranm-Yzvtlaxv-Atopbe (MULTIVITAMIN 50 PLUS) tab Take 1 tablet by mouth once daily. sulfamethoxazole-trimethoprim (BACTRIM DS,SEPTRA DS) 800-160 mg per tablet Take 1 tablet by mouth q12 HR. REVIEW OF SYSTEMS: D/N = 4-6/1-3 Hematuria: no AUA: 19 Bowel movement frequency: 1/day Bowel movement quality: normal Blood per rectum: none Androgen deprivation: Never. PHYSICAL EXAM: BP 137/80 Pulse 90 Temp 36.6 C (97.9 F) Resp 16 Wt 87.1 kg (192 lb) SpO2 96% BMI 27.95 kg/m KPS: 100 General appearance: Alert and oriented. No acute distress. Abdomen: Normal abdominal exam, Abdomen soft, non-tender. No masses, organomegaly. Rectal exam def Extremities: No deformities, edema, skin discoloration, clubbing or cyanosis. Lymph Nodes: No cervical lymphadenopathy, No supraclavicular lymphadenopathy, No axillary lymphadenopathy. Skin: Skin color, texture, turgor normal, no suspicious rashes or lesions. ASSESSMENT/PLAN: Prostate adenocarcinoma, initial PSA 5.93, biopsy Irma score 3 + 3 = 6 (grade group 1), clinical stage T1c, N0, M0, stage I [cT1a-c/T2a, N0, M0, PSA <10, GG 1] (AJCC 8th ed.), s/p MR Targeted biopsy. Status post prostate brachytherapy implant September 2021. Doing well. PSA continues to decline. No evidence of recurrence. Recommend follow-up in 6 months repeat PSA. Patient has continued close follow-up with urology. Signed by: La Munoz MD cc: Joseph [place]acho ([place] [address] Dr. Mendoza documented in this encounterThe [facility]11[facility] Nurse Note* Vianey Gaspar LPN - 04/17/2022 1:23 PM EST AUA=19 documented in this encounterThe [facility]09[facility] Hospital Discharge instructions Patient Education 03/05/2022 10:06:03 Benign Prostatic Hyperplasia Benign Prostatic Hyperplasia Benign prostatic hyperplasia (BPH) is an enlarged prostate gland that is caused by the normal agingprocess and not by cancer. The prostate is a walnut-sized gland that is involved in the production of semen. It is located in front of the rectum and below the bladder. The bladder stores urine and the urethra is the tube that carries the urine out of the body. The prostate may get bigger as a man gets older. An enlarged prostate can press on the urethra. This can make it harder to pass urine. The build-up of urine in the bladder can cause infection. Back pressure and infection may progress to bladder damage and kidney (renal) failure. What are the causes? This condition is part of a normal aging process. However, not all men develop problems from this condition. If the prostate enlarges away from the urethra, urine flow will not be blocked. If it enlarges toward the urethra and compresses it, there will be problems passing urine. What increases the risk? This condition is more likely to develop in men over the age of 50 years. What are the signs or symptoms? Symptoms of this condition include: Getting up often during the night to urinate. Needing to urinate frequently during the day. Difficulty starting urine flow. Decrease in size and strength of your urine stream. Leaking (dribbling) after urinating. Inability to pass urine. This needs immediate treatment. Inability to completely empty your bladder. Pain when you pass urine. This is more common if there is also an infection. Urinary tract infection (UTI). How is this diagnosed? This condition is diagnosed based on your medical history, a physical exam, and your symptoms. Tests will also be done, such as: A post-void bladder scan. This measures any amount of urine that may remain in your bladder after you finish urinating. A digital rectal exam. In a rectal exam, your health care provider checks your prostate by putting a lubricated, gloved finger into your rectum to feel the back of your prostate gland. This exam detects the size of your gland and any abnormal lumps or growths. An exam of your urine (urinalysis). A prostate specific antigen (PSA) screening. This is a blood test used to screen for prostate cancer. An ultrasound. This test uses sound waves to electronically produce a picture of your prostate gland. Your health care provider may refer you to a specialist in kidney and prostate diseases (urologist). How is this treated? Once symptoms begin, your health care provider will monitor your condition (active surveillance or watchful waiting). Treatment for this condition will depend on the severity of your condition. Treatment may include: Observation and yearly exams. This may be the only treatment needed if your condition and symptoms are mild. Medicines to relieve your symptoms, including: ?Medicines to shrink the prostate. ?Medicines to relax the muscle of the prostate. Surgery in severe cases. Surgery may include: ?Prostatectomy. In this procedure, the prostate tissue is removed completely through an open incision or with a laparoscope or robotics. ?Transurethral resection of the prostate (TURP). In this procedure, a tool is inserted through the opening at the tip of the penis (urethra). It is used to cut away tissue of the inner core of the prostate. The pieces are removed through the same opening of the penis. This removes the blockage. ?Transurethral incision (TUIP). In this procedure, small cuts are made in the prostate. This lessens the prostate's pressure on the urethra. ?Transurethral microwave thermotherapy (TUMT). This procedure uses microwaves to create heat. The heat destroys and removes a small amount of prostate tissue. ?Transurethral needle ablation (TUNA). This procedure uses radio frequencies to destroy and remove a small amount of prostate tissue. ?Interstitial laser coagulation (ILC). This procedure uses a laser to destroy and remove a small amount of prostate tissue. ?Transurethral electrovaporization (TUVP). This procedure uses electrodes to destroy and remove a small amount of prostate tissue. ?Prostatic urethral lift. This procedure inserts an implant to push the lobes of the prostate away from the urethra. Follow these instructions at home: Take ydyv-obh-eivhgwr and prescription medicines only as told by your health care provider. Monitor your symptoms for any changes. Contact your health care provider with any changes. Avoid drinking large amounts of liquid before going to bed or out in public. Avoid or reduce how much caffeine or alcohol you drink. Give yourself time when you urinate. Keep all follow-up visits as told by your health care provider. This is important. Contact a health care provider if: You have unexplained back pain. Your symptoms do not get better with treatment. You develop side effects from the medicine you are taking. Your urine becomes very dark or has a bad smell. Your lower abdomen becomes distended and you have trouble passing your urine. Get help right away if: You have a fever or chills. You suddenly cannot urinate. You feel lightheaded, or very dizzy, or you faint. There are large amounts of blood or clots in the urine. Your urinary problems become hard to manage. You develop moderate to severe low back or flank pain. The flank is the side of your body between the ribs and the hip. These symptoms may represent a serious problem that is an emergency. Do not wait to see if the symptoms will go away. Get medical help right away. Call your local emergency services (911 in the [place] Do not drive yourself to the hospital. Summary Benign prostatic hyperplasia (BPH) is an enlarged prostate that is caused by the normal aging process and not by cancer. An enlarged prostate can press on the urethra. This can make it hard to pass urine. This condition is part of a normal aging process and is more likely to develop in men over the age of 50 years. Get help right away if you suddenly cannot urinate. This information is not intended to replace advice given to you by your health care provider. Make sure you discuss any questions you have with your health care provider. Document Released: 05/25/2006 Document Revised: 04/19/2019 Document Reviewed: 06/29/2017 [employer] Patient Education 2020 [employer] 03/05/2022 10:06:00 Calorie Counting for Weight Loss Calorie Counting for Weight Loss Calories are units of energy. Your body needs a certain amount of calories from food to keep you going throughout the day. When you eat more calories than your body needs, your body stores the extra calories as fat. When you eat fewer calories than your body needs, your body blanco fat to get the energy it needs. Calorie counting means keeping track of how many calories you eat and drink each day. Calorie counting can be helpful if you need to lose weight. If you make sure to eat fewer calories than your bodyneeds, you should lose weight. Ask your health care provider what a healthy weight is for you. For calorie counting to work, you will need to eat the right number of calories in a day in order to lose a healthy amount of weight per week. A dietitian can help you determine how many calories youneed in a day and will give you suggestions on how to reach your calorie goal. A healthy amount of weight to lose per week is usually 1 2 lb (0.5 0.9 kg). This usually means thatyour daily calorie intake should be reduced by 500 750 calories. Eating 1,200 1,500 calories per day can help most women lose weight. Eating 1,500 1,800 calories per day can help most men lose weight. What is my plan? My goal is to have calories per day. If I have this many calories per day, I should lose around pounds per week. What do I need to know about calorie counting? In order to meet your daily calorie goal, you will need to: Find out how many calories are in each food you would like to eat. Try to do this before you eat. Decide how much of the food you plan to eat. Write down what you ate and how many calories it had. Doing this is called keeping a food log. To successfully lose weight, it is important to balance calorie counting with a healthy lifestyle that includes regular activity. Aim for 150 minutes of moderate exercise (such as walking) or 75 minutes of vigorous exercise (such as running) each week. Where do I find calorie information? The number of calories in a food can be found on a Nutrition Facts label. If a food does not have aNutrition Facts label, try to look up the calories online or ask your dietitian for help. Remember that calories are listed per serving. If you choose to have more than one serving of a food, you will have to multiply the calories per serving by the amount of servings you plan to eat. Forexample, the label on a package of bread might say that a serving size is 1 slice and that there are 90 calories in a serving. If you eat 1 slice, you will have eaten 90 calories. If you eat 2 slices, you will have eaten 180 calories. How do I keep a food log? Immediately after each meal, record the following information in your food log: What you ate. Don't forget to include toppings, sauces, and other extras on the food. How much you ate. This can be measured in cups, ounces, or number of items. How many calories each food and drink had. The total number of calories in the meal. Keep your food log near you, such as in a small notebook in your pocket, or use a mobile rosendo or website. Some programs will calculate calories for you and show you how many calories you have left forthe day to meet your goal. What are some calorie counting tips? Use your calories on foods and drinks that will fill you up and not leave you hungry: ?Some examples of foods that fill you up are nuts and nut butters, vegetables, lean proteins, and high-fiber foods like whole grains. High-fiber foods are foods with more than 5 g fiber per serving. ?Drinks such as sodas, specialty coffee drinks, alcohol, and juices have a lot of calories, yet do not fill you up. Eat nutritious foods and avoid empty calories. Empty calories are calories you get from foods or beverages that do not have many vitamins or protein, such as candy, sweets, and soda. It is better to have a nutritious high-calorie food (such as an avocado) than a food with few nutrients (such as a bag of chips). Know how many calories are in the foods you eat most often. This will help you calculate calorie counts faster. Pay attention to calories in drinks. Low-calorie drinks include water and unsweetened drinks. Pay attention to nutrition labels for low fat or fat free foods. These foods sometimes have thesame amount of calories or more calories than the full fat versions. They also often have added sugar, starch, or salt, to make up for flavor that was removed with the fat. Find a way of tracking calories that works for you. Get creative. Try different apps or programs ifwriting down calories does not work for you. What are some portion control tips? Know how many calories are in a serving. This will help you know how many servings of a certain food you can have. Use a measuring cup to measure serving sizes. You could also try weighing out portions on a kitchenscale. With time, you will be able to estimate serving sizes for some foods. Take some time to put servings of different foods on your favorite plates, bowls, and cups so you know what a serving looks like. Try not to eat straight from a bag or box. Doing this can lead to overeating. Put the amount you would like to eat in a cup or on a plate to make sure you are eating the right portion. Use smaller plates, glasses, and bowls to prevent overeating. Try not to multitask (for example, watch TV or use your computer) while eating. If it is time to eat, sit down at a table and enjoy your food. This will help you to know when you are full. It will also help you to be aware of what you are eating and how much you are eating. What are tips for following this plan? Reading food labels Check the calorie count compared to the serving size. The serving size may be smaller than what youare used to eating. Check the source of the calories. Make sure the food you are eating is high in vitamins and proteinand low in saturated and trans fats. Shopping Read nutrition labels while you shop. This will help you make healthy decisions before you decide to purchase your food. Make a grocery list and stick to it. Cooking Try to cook your favorite foods in a healthier way. For example, try baking instead of frying. Use low-fat dairy products. Meal planning Use more fruits and vegetables. Half of your plate should be fruits and vegetables. Include lean proteins like poultry and fish. How do I count calories when eating out? Ask for smaller portion sizes. Consider sharing an entree and sides instead of getting your own entree. If you get your own entree, eat only half. Ask for a box at the beginning of your meal and put the rest of your entree in it so you are not tempted to eat it. If calories are listed on the menu, choose the lower calorie options. Choose dishes that include vegetables, fruits, whole grains, low-fat dairy products, and lean protein. Choose items that are boiled, broiled, grilled, or steamed. Stay away from items that are buttered,battered, fried, or served with cream sauce. Items labeled crispy are usually fried, unless stated otherwise. Choose water, low-fat milk, unsweetened iced tea, or other drinks without added sugar. If you want an alcoholic beverage, choose a lower calorie option such as a glass of wine or light beer. Ask for dressings, sauces, and syrups on the side. These are usually high in calories, so you should limit the amount you eat. If you want a salad, choose a garden salad and ask for grilled meats. Avoid extra toppings like abebe, cheese, or fried items. Ask for the dressing on the side, or ask for olive oil and vinegar or lemon to use as dressing. Estimate how many servings of a food you are given. For example, a serving of cooked rice is cup orabout the size of half a baseball. Knowing serving sizes will help you be aware of how much food you are eating at restaurants. The list below tells you how big or small some common portion sizes arebased on everyday objects: ?1 oz 4 stacked dice. ?3 oz 1 deck of cards. ?1 tsp 1 . ?1 Tbsp a ping-pong ball. ?2 Tbsp 1 ping-pong ball. ? cup baseball. ?1 cup 1 baseball. Summary Calorie counting means keeping track of how many calories you eat and drink each day. If you eat fewer calories than your body needs, you should lose weight. A healthy amount of weight to lose per week is usually 1 2 lb (0.5 0.9 kg). This usually means reducing your daily calorie intake by 500 750 calories. The number of calories in a food can be found on a Nutrition Facts label. If a food does not have aNutrition Facts label, try to look up the calories online or ask your dietitian for help. Use your calories on foods and drinks that will fill you up, and not on foods and drinks that will leave you hungry. Use smaller plates, glasses, and bowls to prevent overeating. This information is not intended to replace advice given to you by your health care provider. Make sure you discuss any questions you have with your health care provider. Document Released: 05/25/2006 Document Revised: 02/11/2019 Document Reviewed: 04/24/2017 Testin Patient Education 2020 [employer]. Follow Up Care 11/27/2021 09:59:26 With:LÓPEZ JOHNS, Gerry aPscual, URL Address: [address] [place] [address] [place] [phone] Business (1) When:Within 6 Month(s) Comments:w/YA [facility] Nick 06-22-2022 Hospital Discharge instructions Patient Education 11/27/2021 09:53:55 Calorie Counting for Weight Loss Calorie Counting for Weight Loss Calories are units of energy. Your body needs a certain amount of calories from food to keep you going throughout the day. When you eat more calories than your body needs, your body stores the extra calories as fat. When you eat fewer calories than your body needs, your body blanco fat to get the energy it needs. Calorie counting means keeping track of how many calories you eat and drink each day. Calorie counting can be helpful if you need to lose weight. If you make sure to eat fewer calories than your bodyneeds, you should lose weight. Ask your health care provider what a healthy weight is for you. For calorie counting to work, you will need to eat the right number of calories in a day in order to lose a healthy amount of weight per week. A dietitian can help you determine how many calories youneed in a day and will give you suggestions on how to reach your calorie goal. A healthy amount of weight to lose per week is usually 1 2 lb (0.5 0.9 kg). This usually means thatyour daily calorie intake should be reduced by 500 750 calories. Eating 1,200 1,500 calories per day can help most women lose weight. Eating 1,500 1,800 calories per day can help most men lose weight. What is my plan? My goal is to have calories per day. If I have this many calories per day, I should lose around pounds per week. What do I need to know about calorie counting? In order to meet your daily calorie goal, you will need to: Find out how many calories are in each food you would like to eat. Try to do this before you eat. Decide how much of the food you plan to eat. Write down what you ate and how many calories it had. Doing this is called keeping a food log. To successfully lose weight, it is important to balance calorie counting with a healthy lifestyle that includes regular activity. Aim for 150 minutes of moderate exercise (such as walking) or 75 minutes of vigorous exercise (such as running) each week. Where do I find calorie information? The number of calories in a food can be found on a Nutrition Facts label. If a food does not have aNutrition Facts label, try to look up the calories online or ask your dietitian for help. Remember that calories are listed per serving. If you choose to have more than one serving of a food, you will have to multiply the calories per serving by the amount of servings you plan to eat. Forexample, the label on a package of bread might say that a serving size is 1 slice and that there are 90 calories in a serving. If you eat 1 slice, you will have eaten 90 calories. If you eat 2 slices, you will have eaten 180 calories. How do I keep a food log? Immediately after each meal, record the following information in your food log: What you ate. Don't forget to include toppings, sauces, and other extras on the food. How much you ate. This can be measured in cups, ounces, or number of items. How many calories each food and drink had. The total number of calories in the meal. Keep your food log near you, such as in a small notebook in your pocket, or use a mobile rosendo or website. Some programs will calculate calories for you and show you how many calories you have left forthe day to meet your goal. What are some calorie counting tips? Use your calories on foods and drinks that will fill you up and not leave you hungry: ?Some examples of foods that fill you up are nuts and nut butters, vegetables, lean proteins, and high-fiber foods like whole grains. High-fiber foods are foods with more than 5 g fiber per serving. ?Drinks such as sodas, specialty coffee drinks, alcohol, and juices have a lot of calories, yet do not fill you up. Eat nutritious foods and avoid empty calories. Empty calories are calories you get from foods or beverages that do not have many vitamins or protein, such as candy, sweets, and soda. It is better to have a nutritious high-calorie food (such as an avocado) than a food with few nutrients (such as a bag of chips). Know how many calories are in the foods you eat most often. This will help you calculate calorie counts faster. Pay attention to calories in drinks. Low-calorie drinks include water and unsweetened drinks. Pay attention to nutrition labels for low fat or fat free foods. These foods sometimes have thesame amount of calories or more calories than the full fat versions. They also often have added sugar, starch, or salt, to make up for flavor that was removed with the fat. Find a way of tracking calories that works for you. Get creative. Try different apps or programs ifwriting down calories does not work for you. What are some portion control tips? Know how many calories are in a serving. This will help you know how many servings of a certain food you can have. Use a measuring cup to measure serving sizes. You could also try weighing out portions on a kitchenscale. With time, you will be able to estimate serving sizes for some foods. Take some time to put servings of different foods on your favorite plates, bowls, and cups so you know what a serving looks like. Try not to eat straight from a bag or box. Doing this can lead to overeating. Put the amount you would like to eat in a cup or on a plate to make sure you are eating the right portion. Use smaller plates, glasses, and bowls to prevent overeating. Try not to multitask (for example, watch TV or use your computer) while eating. If it is time to eat, sit down at a table and enjoy your food. This will help you to know when you are full. It will also help you to be aware of what you are eating and how much you are eating. What are tips for following this plan? Reading food labels Check the calorie count compared to the serving size. The serving size may be smaller than what youare used to eating. Check the source of the calories. Make sure the food you are eating is high in vitamins and proteinand low in saturated and trans fats. Shopping Read nutrition labels while you shop. This will help you make healthy decisions before you decide to purchase your food. Make a grocery list and stick to it. Cooking Try to cook your favorite foods in a healthier way. For example, try baking instead of frying. Use low-fat dairy products. Meal planning Use more fruits and vegetables. Half of your plate should be fruits and vegetables. Include lean proteins like poultry and fish. How do I count calories when eating out? Ask for smaller portion sizes. Consider sharing an entree and sides instead of getting your own entree. If you get your own entree, eat only half. Ask for a box at the beginning of your meal and put the rest of your entree in it so you are not tempted to eat it. If calories are listed on the menu, choose the lower calorie options. Choose dishes that include vegetables, fruits, whole grains, low-fat dairy products, and lean protein. Choose items that are boiled, broiled, grilled, or steamed. Stay away from items that are buttered,battered, fried, or served with cream sauce. Items labeled crispy are usually fried, unless stated otherwise. Choose water, low-fat milk, unsweetened iced tea, or other drinks without added sugar. If you want an alcoholic beverage, choose a lower calorie option such as a glass of wine or light beer. Ask for dressings, sauces, and syrups on the side. These are usually high in calories, so you should limit the amount you eat. If you want a salad, choose a garden salad and ask for grilled meats. Avoid extra toppings like abebe, cheese, or fried items. Ask for the dressing on the side, or ask for olive oil and vinegar or lemon to use as dressing. Estimate how many servings of a food you are given. For example, a serving of cooked rice is cup orabout the size of half a baseball. Knowing serving sizes will help you be aware of how much food you are eating at restaurants. The list below tells you how big or small some common portion sizes arebased on everyday objects: ?1 oz 4 stacked dice. ?3 oz 1 deck of cards. ?1 tsp 1 . ?1 Tbsp a ping-pong ball. ?2 Tbsp 1 ping-pong ball. ? cup baseball. ?1 cup 1 baseball. Summary Calorie counting means keeping track of how many calories you eat and drink each day. If you eat fewer calories than your body needs, you should lose weight. A healthy amount of weight to lose per week is usually 1 2 lb (0.5 0.9 kg). This usually means reducing your daily calorie intake by 500 750 calories. The number of calories in a food can be found on a Nutrition Facts label. If a food does not have aNutrition Facts label, try to look up the calories online or ask your dietitian for help. Use your calories on foods and drinks that will fill you up, and not on foods and drinks that will leave you hungry. Use smaller plates, glasses, and bowls to prevent overeating. This information is not intended to replace advice given to you by your health care provider. Make sure you discuss any questions you have with your health care provider. Document Released: 05/25/2006 Document Revised: 02/11/2019 Document Reviewed: 04/24/2017 Testin Patient Education 2020 [employer]. 11/27/2021 09:53:53 Brachytherapy for Prostate Cancer, Care After Brachytherapy for Prostate Cancer, Care After This sheet gives you information about how to care for yourself after your procedure. Your health care provider may also give you more specific instructions. If you have problems or questions, contact your health care provider. What can I expect after the procedure? After the procedure, it is common to have: Trouble passing urine. Blood in the urine or semen. Constipation. Frequent feeling of an urgent need to urinate. Bruising, swelling, and tenderness of the area behind the scrotum (perineum). Bloating and gas. Fatigue. Burning or pain in the rectum. Problems getting or keeping an erection (erectile dysfunction). Nausea. Follow these instructions at home: Managing pain, stiffness, and swelling If directed, apply ice to the affected area: ?Put ice in a plastic bag. ?Place a towel between your skin and the bag. ?Leave the ice on for 20 minutes, 2 3 times a day. Try not to sit directly on the area behind the scrotum. A soft cushion can help with discomfort. Activity Do not drive for 24 hours if you were given a medicine to help you relax (sedative). Do not drive or use heavy machinery while taking prescription pain medicine. Rest as told by your health care provider. Most people can return to normal activities a few days or weeks after the procedure. Ask your health care provider what activities are safe for you. Eating and drinking Drink enough fluid to keep your urine clear or pale yellow. Eat a healthy, balanced diet. This includes lean proteins, whole grains, and plenty of fruits and vegetables. General instructions Take zlkp-cal-vocvpxy and prescription medicines only as told by your health care provider. Keep all follow-up visits as told by your health care provider. This is important. You may still need additional treatment. Do not take baths, swim, or use a hot tub until your health care provider approves. Shower and washthe area behind the scrotum gently. Do not have sex for one week after the treatment, or until your health care provider approves. If you have permanent, low-dose brachytherapy implants: ?Limit close contact with children and women for 2 months or as told by your health care provider. This is important because of the radiation that is still active in the prostate. ?You may set off radioactive sensors, such as airport screenings. Ask your health care provider fora document that explains your treatment. ?You may be instructed to use a condom during sex for the first 2 months after low-dose brachytherapy. Contact a health care provider if: You have a fever or chills. You do not have a bowel movement for 3 4 days after the procedure. You have diarrhea for 3 4 days after the procedure. You develop any new symptoms, such as problems with urinating or erectile dysfunction. You have abdomen (abdominal) pain. You have more blood in your urine. Get help right away if: You cannot urinate. There is excessive bleeding from your rectum. You have unusual drainage coming from your rectum. You have severe pain in the treated area that does not go away with pain medicine. You have severe nausea or vomiting. Summary If you have permanent, low-dose brachytherapy implants, limit close contact with children and women for 2 months or as told by your health care provider. This is important because of the radiation that is still active in the prostate. Talk with your health care provider about your risk of brachytherapy side effects, such as erectiledysfunction or urinary problems. Your health care provider will be able to recommend possible treatment options. Keep all follow-up visits as told by your health care provider. This is important. You may need additional treatment. This information is not intended to replace advice given to you by your health care provider. Make sure you discuss any questions you have with your health care provider. Document Released: 06/27/2011 Document Revised: 05/07/2018 Document Reviewed: 06/26/2017 Testin Patient Education 2020 [employer]. Follow Up Care 10/22/2021 08:23:16 With:LÓPEZ JOHNS, Gerry Pascual, URL Address: [address] [place] [address] [place] [phone] Business (1) When:Within 3 Month(s) Comments:w/PSA [facility] 06-09-2022 NoteHNO ID: [id number] Author: La Munoz MD Service: ? Author Type: Physician Type: Progress Notes Filed: 11/21/2021 7:30 AM Note Text: Radiation Oncology - Follow Up Note PATIENT NAME: Lamont Lutz PATIENT DIAGNOSIS: Prostate adenocarcinoma, initial PSA 5.93, biopsy Theresa score 3 + 3 = 6 (grade group 1), clinical stage T1c, N0, M0, stage I [cT1a-c/T2a, N0, M0, PSA <10, GG 1] (AJCC 8th ed.), s/p MR Targeted biopsy. RADIATION SUMMARY: Prostate I-125 brachytherapy implant, 10/03/2021, 145 Gy, 85 sources, 32.81 mCi. INTERVAL HISTORY: Doing well. Still with some increased urinary urgency and frequency occasional dysuria. Overall improving. No hematuria. PSA HISTORY: PSA (ng/mL) Date Value 10/28/2021 7.79 ALLERGIES No Known Allergies amLODIPine-benazepril (LOTREL) 5-20 mg per capsule Take 1 capsule by mouth once daily. atorvastatin (LIPITOR) 20 mg tablet Take 20 mg by mouth daily at bedtime. Fhhfupqpzoqjr-Bzefdonj-Ryzsmo (MULTIVITAMIN 50 PLUS) tab Take 1 tablet by mouth once daily. sulfamethoxazole-trimethoprim (BACTRIM DS,SEPTRA DS) 800-160 mg per tablet Take 1 tablet by mouth q 12 HR. oxybutynin ER (DITROPAN XL) 10 mg 24 hr tablet Take 10 mg by mouth once daily. REVIEW OF SYSTEMS: D/N = 4-6/1-3 Hematuria: no AUA:12 Bowel movement frequency: 1/day Bowel movement quality: normal Blood per rectum: none Androgen deprivation: Never. PHYSICAL EXAM: BP 130/83 Pulse 82 Temp 36.4 ?C (97.6 ?F) Resp 16 Wt 86.6 kg (191 lb) SpO2 97% BMI 27.80 kg/m? KPS: 100 General appearance: Alert and oriented. No acute distress. Rectal exam def ASSESSMENT/PLAN: Prostate adenocarcinoma, initial PSA 5.93, biopsy Theresa score 3 + 3 = 6 (grade group 1), clinical stage T1c, N0, M0, stage I [cT1a-c/T2a, N0, M0, PSA <10, GG 1] (AJCC 8th ed.), s/p MR Targeted biopsy. Status post prostate brachytherapy implant September 2021. Patient overall doing well. Slight rise in PSA likely related to post treatment effects. He has further PSA planned later this summer with Dr. Mendoza. His post-implant CT shows excellent prostate coverage and appropriate normal tissue sparing. No change of modification in either the treatment or follow-up plan based on this. Signed by: La Munoz MD cc: Joseph Camacho ([facility]) [address] [place] [address] [facility] Note* Vianey Gaspar LPN - 11/14/2021 11:34 AM EDT AUA= 12 documented in this encounterThe [facility] History of Present illness Narrative* La Munoz MD - 11/14/2021 11:32 AM EDT Radiation Oncology - Follow Up Note PATIENT NAME: Lamont Lutz PATIENT DIAGNOSIS: Prostate adenocarcinoma, initial PSA 5.93, biopsy Irma score 3 + 3 = 6 (grade group 1), clinical stage T1c, N0, M0, stage I [cT1a-c/T2a, N0, M0, PSA <10, GG 1] (AJCC 8th ed.), s/p MRTargeted biopsy. RADIATION SUMMARY: Prostate I-125 brachytherapy implant, 10/03/2021, 145 Gy, 85 sources, 32.81 mCi. INTERVAL HISTORY: Doing well. Still with some increased urinary urgency and frequency occasional dysuria. Overall improving. No hematuria. PSA HISTORY: PSA (ng/mL) Date Value 10/28/2021 7.79 ALLERGIES No Known Allergies amLODIPine-benazepril (LOTREL) 5-20 mg per capsule Take 1 capsule by mouth once daily. atorvastatin (LIPITOR) 20 mg tablet Take 20 mg by mouth daily at bedtime. Gapwgxmaagcme-Uqbherny-Sewuhy (MULTIVITAMIN 50 PLUS) tab Take 1 tablet by mouth once daily. sulfamethoxazole-trimethoprim (BACTRIM DS,SEPTRA DS) 800-160 mg per tablet Take 1 tablet by mouth q12 HR. oxybutynin ER (DITROPAN XL) 10 mg 24 hr tablet Take 10 mg by mouth once daily. REVIEW OF SYSTEMS: D/N = 4-6/1-3 Hematuria: no AUA:12 Bowel movement frequency: 1/day Bowel movement quality: normal Blood per rectum: none Androgen deprivation: Never. PHYSICAL EXAM: BP 130/83 Pulse 82 Temp 36.4 C (97.6 F) Resp 16 Wt 86.6 kg (191 lb) SpO2 97% BMI 27.80 kg/m KPS: 100 General appearance: Alert and oriented. No acute distress. Rectal exam def ASSESSMENT/PLAN: Prostate adenocarcinoma, initial PSA 5.93, biopsy Theresa score 3 + 3 = 6 (grade group 1), clinical stage T1c, N0, M0, stage I [cT1a-c/T2a, N0, M0, PSA <10, GG 1] (AJCC 8th ed.), s/p MR Targeted biopsy. Status post prostate brachytherapy implant September 2021. Patient overall doing well. Slight rise in PSA likely related to post treatment effects. He has further PSA planned later this summer with Dr. Mendoza. His post- implant CT shows excellent prostate coverage and appropriate normal tissue sparing. No change of modification in either the treatment or follow-up plan based on this. Signed by: La Munoz MD cc: Joseph Camacho (Helen) [address] [place] [address] Dr. Mendoza documented in this encounterThe [facility]05-27-[facility] NoteHNO ID: [id number] Author: La Munoz MD Service: ? Author Type: Physician Type: Progress Notes Filed: 11/12/2021 12:32 AM Note Text: Patient: Lamont Lutz Date:11/01/2021 [facility] RADIATION ONCOLOGY POST SEED IMPLANT SIMULATION NOTE DATE OF SIMULATION: 11/01/2021 MACHINE: CT Simulator AREA:Prostate PATIENT POSITION: Supine. CONTRAST: None PROTOCOL: None CONCURRENT THERAPY: None FIXATION DEVICE: None PROCEDURE: Patient was simulated on the CT scanner and CT images of the patients pelvis obtained. ASSESSMENT/PLAN: Patient tolerated simulation procedure well. CT images were obtained on the CT simulator for the prostate post brachy therapy seed implant planning. Post planning for the permanent seed prostate brachy procedure will commence following simulation. Electronically Signed BRANDEN MUNOZ M.D. :18 [facility]05-27-2022 History of Present illness Narrative* La Munoz MD - 11/01/2021 12:00 AM EDT Patient: Lamont Lutz Date:11/01/2021 [facility] RADIATION ONCOLOGY POST SEED IMPLANT SIMULATION NOTE DATE OF SIMULATION: 11/01/2021 MACHINE: CT Simulator AREA:Prostate PATIENT POSITION: Supine. CONTRAST: None PROTOCOL: None CONCURRENT THERAPY: None FIXATION DEVICE: None PROCEDURE: Patient was simulated on the CT scanner and CT images of the patients pelvis obtained. ASSESSMENT/PLAN: Patient tolerated simulation procedure well. CT images were obtained on the CT simulator for the prostate post brachy therapy seed implant planning. Post planning for the permanent seed prostate brachy procedure will commence following simulation. Electronically Signed BRANDEN MUNOZ M.D. :18 PM documented in this encounterThe [facility]05-[facility]22 History of Present illness Narrative* La Munoz MD - 10/10/2021 9:15 AM EDT Radiation Oncology - Follow Up Note PATIENT NAME: Lamont Lutz PATIENT DIAGNOSIS: Prostate adenocarcinoma, initial PSA 5.93, biopsy Irma score 3 + 3 = 6 (grade group 1), clinical stage T1c, N0, M0, stage I [cT1a-c/T2a, N0, M0, PSA <10, GG 1] (AJCC 8th ed.), s/p MRTargeted biopsy. RADIATION SUMMARY: Prostate I-125 brachytherapy implant, 10/03/2021, 145 Gy, 85 sources, 32.81 mCi. INTERVAL HISTORY: The patient presents for routine follow-up after recent prostate brachytherapy implant. Doing well. Denies fever. Still with catheter mild irritation no other issues. Denies diarrhea. Denies perineal discomfort. PSA HISTORY: No results found for: PSA, PSAPER ALLERGIES No Known Allergies sulfamethoxazole-trimethoprim (BACTRIM DS,SEPTRA DS) 800-160 mg per tablet Take 1 tablet by mouth q12 HR. oxybutynin ER (DITROPAN XL) 10 mg 24 hr tablet Take 10 mg by mouth once daily. amLODIPine-benazepril (LOTREL) 5-20 mg per capsule Take 1 capsule by mouth once daily. atorvastatin (LIPITOR) 20 mg tablet Take 20 mg by mouth daily at bedtime. Bxehuqtjjcomi-Flqbezjf-Dgtcgv (MULTIVITAMIN 50 PLUS) tab Take 1 tablet by mouth once daily. REVIEW OF SYSTEMS: D/N = na Hematuria: Resolving Bowel movement frequency: 1/day Bowel movement quality: normal Blood per rectum: none Androgen deprivation: Never. PHYSICAL EXAM: BP 137/80 Pulse 98 Temp (!) 35.9 C (96.7 F) Resp 16 Wt 88.5 kg (195 lb) SpO2 98% BMI 28.38 kg/m KPS: 100 General Appearance: Alert and oriented. No acute distress. Rectal exam is deferred. Perineal area without ecchymosis tenderness or seroma. ASSESSMENT/PLAN: Prostate adenocarcinoma, initial PSA 5.93, biopsy Irma score 3 + 3 = 6 (grade group 1), clinical stage T1c, N0, M0, stage I [cT1a-c/T2a, N0, M0, PSA <10, GG 1] (AJCC 8th ed.), s/p MR Targeted biopsy. Status post prostate brachytherapy implant September 2021. Patient overall doing well with improving post-implant urinary issues. No other new problems. Plan to have patient back in 2 weeks for post-implant CT, return for follow-up exam in 4 weeks. He continues close follow-up with Dr. Mendoza as well. Signed by: La Munoz MD cc: Joseph Camacho ([facility]) [address] [place] [id number] López documented in this encounterThe [facility]04-28-2022 History of Present illness Narrative* La Munoz MD - 10/03/2021 3:19 PM EDT Date: 10/03/2021 Facility: [facility] Procedure: prostate transperineal brachytherapy implant Diagnosis: Prostate cancer. Sources: I-125 Anesthesia:general Urologist: Dr. Mendoza This is an operative report supplement to Dr. Mendoza note. Prior the the implant patient underwent planning using transrectal ultrasound based. The planning including outline of prostate and planningmargin around prostate to deliver 145 Gy using I-125 sources. Prior to the procedure on the morning of the implant, patient identified by name and hospital ID bracelet. After anesthesia administered patient placed in dorsal-lithotomy position and ultrasound study done showing good correlation with planning images and excellent visualization of the gland. Implant was then carried out using transperineal technique with active ultrasound and fluoroscopic guidance. At the end of the case the treatment planning ultrasound computer showed captured seed located in expected position with appropriate target coverage, plan was optimized with additon 2 extra seedsimplanted via a single need insertion. X-ray image showed good seed distribution and all 85 sources. Intraoperative dosimetry reviewed showing D90 of 130.3 %, and excellent coverage of gland by the 100% IDL. A total of 85 sources, for a total of 32.81 mCi were implanted using 22 needles. After the cystoscopy physics performed survey with meter of patient, cystoscopy fluid, floor, trash, work table and general area. No excess activity seen, results documented. Gaetano Munoz MD documented in this encounterThe [facility]04-28-2022 NotePROCEDURE: XR PELVIS 1_2 VIEWS HISTORY: Carcinoma of prostate COMPARISON: None. FINDINGS: Single intraoperative spot fluoroscopic image demonstrates numerous radioactive seeds confined to region of prostate. Urinary bladder is filled with contrast without evidence of extravasation. IMPRESSION: Radioactive prostate seeding without evidence of bladder disruption. Electronically authenticated by: WILY VERAS Date: 2021-10-03 10:12[facility] Future Appointments Appointment Date:03/05/2022 09:15:00 AM Scheduled Provider:Gerry MENDOZA MD Location:[facility] Appointment Type:URO Office Visit Diagnostic Tests Pending * PSA Total 11/27/21 [facility] Evaluation + Plan note Future Appointments Appointment Date:09/10/2022 09:45:00 AM Scheduled Provider:Gerry MENDOZA MD Location:[facility] Appointment Type:URO Office Visit Diagnostic Tests Pending * PSA Total 03/05/22 [facility] Evaluation + Plan note Future Appointments Appointment Date:09/30/2022 01:15:00 PM Scheduled Provider:Gerry MENDOZA MD Location:[facility] Appointment Type:URO Procedure 15 min Appointment Date:03/25/2023 08:45:00 AM Scheduled Provider:Gerry MENDOZA MD Location:[facility] Appointment Type:URO Office Visit Diagnostic Tests Pending * PSA Total 09/10/22 * Urine Cytology ([facility]) 09/10/22 [facility] Evaluation + Plan note Future Appointments Appointment Date:09/21/2023 10:45:00 AM Scheduled Provider:Gerry MENDOZA MD Location:[facility] Appointment Type:URO Office Visit Diagnostic Tests Pending * PSA Total 10/18/23 [facility] Evaluation note* Diagnosis Malignant neoplasm of prostate (HCC)- Primary Malignant neoplasm of prostate documented in this encounter [facility] note* Diagnosis Prostate cancer (HCC)- Primary Malignant neoplasm of prostate documented in this encounter [facility] note* Diagnosis Prostate cancer (HCC)- Primary Malignant neoplasm of prostate documented in this encounter [facility] note* Diagnosis Prostate cancer (HCC)- Primary Malignant neoplasm of prostate documented in this encounter [facility] note* Diagnosis History of prostate cancer- Primary Personal history of malignant neoplasm of prostate documented in this encounter [facility] note* Diagnosis Prostate cancer (HCC) Malignant neoplasm of prostate documented in this encounter [facility] noteNo InformationNortNew Lifecare [facility] [employer] Other Hisrsib general Narrative - Reported* Type Description Date Medical History Hypertension Medical History Prostate cancer Medical History IFG (impaired fasting glucose) Medical History Hyperlipidemia type II Medical History History of nephrolithiasis Medical History Erectile dysfunction due to samantha rial insufficiency Surgical History knee replacement-right .2013 Surgical History appendectomy Surgical History knee arthroscopy-bilateral Surgical History kidney stone Surgical History transrectal ultrasound with bio psy 07.25.21 Surgical History cystoscopy with left ureterosco py 02.01.20 Surgical History lithotripsy of left kidney 08.2 7. Surgical History colonoscopy - repeat every 5 ye ars 01.17.29 Surgical History left TKA .2016 Surgical History cystoscopy and left ureteral st ent .2015 Hospitalization History see above [facility] Other Hispjtt general Narrative - Reported* Type Description Date Medical History Hypertension Medical History Prostate cancer Medical History IFG (impaired fasting glucose) Medical History Hyperlipidemia type II Medical History History of nephrolithiasis Medical History Erectile dysfunction due to samantha rial insufficiency Surgical History knee replacement-right .2013 Surgical History appendectomy Surgical History knee arthroscopy-bilateral Surgical History kidney stone Surgical History transrectal ultrasound with bio psy 07.25. Surgical History cystoscopy with left ureterosco py 08.20 Surgical History lithotripsy of left kidney 08.2 7.22 Surgical History colonoscopy (repeat every 5 yea rs) 12/2018 Surgical History left TKA .2016 Surgical History cystoscopy and left ureteral st ent 10.2016 Hospitalization History see above [employer] Other Hospital course Narrative No data available for this section [facility] Progress note No data available for this section [facility] Summary Purpose Family History No Family History Records FoundNo Family History Records FoundNo Family History Records Found No data available for this section No Family History Records Found Advance Directives No Advanced Directives Records FoundNo Advanced Directives Records FoundNo Advanced Directives Records FoundNo Advanced Directives Records Found Additional Source Comments (unrecognized sect ion and content) No Status Records FoundNo Status Records FoundNo Status Records FoundNo Status Records Found INFORMATION SOURCE (unrecogn ized section and content) DATE CREATED AUTHOR 08/25/2021 [facility] DATE CREATED AUTHOR AUTHOR'S ORGANIZ ATION 09/13/2022 [facility] DATE CREATED AUTHOR AUTHOR'S ORGANIZ ATION 10/18/2022 [facility] DATE CREATED AUTHOR AUTHOR'S ORGANIZ ATION 03/26/2023 [facility] Source Comments (unrecognize d section and content) In the event this informatio n is protected by the Federal Confidentiality of Alcohol and Drug Abuse Patient Records regulations: The Federal rules restrict any use of the information to criminally investigate or prosecute any alcohol or drug abuse patient.[facility] CenterIn the event this information is protected by the Federal Confidentiality of Alcohol and Drug Abuse Patient Records regulations: The Federal rules restrict any use of the information to criminally investigate or prosecute any alcohol or drug abuse patient.[facility] CenterIn the event this information is protected by the Federal Confidentiality of Alcohol and Drug Abuse Patient Records regulations: The Federal rules restrict any use of the information to criminally investigate or prosecute any alcohol or drug abuse patient.[facility] CenterIn the event this information is protected by the Federal Confidentiality of Alcohol and Drug Abuse Patient Records regulations: The Federal rules restrict any use of the information to criminally investigate or prosecute any alcohol or drug abuse patient.[facility] CenterIn the event this information is protected by the Federal Confidentiality of Alcohol and Drug Abuse Patient Records regulations: The Federal rules restrict any use of the information to criminally investigate or prosecute any alcohol or drug abuse patient.[facility] CenterIn the event this information is protected by the Federal Confidentiality of Alcohol and Drug Abuse Patient Records regulations: The Federal rules restrict any use of the information to criminally investigate or prosecute any alcohol or drug abuse patient.[facility] CenterIn the event this information is protected by the Federal Confidentiality of Alcohol and Drug Abuse Patient Records regulations: The Federal rules restrict any use of the information to criminally investigate or prosecute any alcohol or drug abuse patient.[facility] CenterIn the event this information is protected by the Federal Confidentiality of Alcohol and Drug Abuse Patient Records regulations: The Federal rules restrict any use of the information to criminally investigate or prosecute any alcohol or drug abuse patient.[facility] Reason for Visit (unrecogniz ed section and content) Lab results Specialty Diagnoses / Procedures Referred By Contchris t Referred To Contact Radiation Oncology / RADIATION ONCOLOGY Diagnoses Malignant neoplasm of prostate Seed Implant at [facility] Procedures SEED IMPLANT La Munoz MD [address] [place] [address] [place] [address] La Munoz MD [address] [place] [address] [place] [address] Referral ID Status Reason Start Date Expiration Date V isits Requested Visits Authorized [id number] Authorized 10/03/2021 06/07/2022 99 99 Reason Comments Prostate Cancer Care Teams (unrecognized sec tion and content) Refinery Operator Relationship Specialty Start Date End Date Joseph Camacho DO [address] [place] [facility] [address] PCP - General Internal Medicine 08/02/21 Gerry Mendoza MD [address] [place] [address] Referring Urology 08/02/21 Refinery Operator Relationship Specialty Start Date End Date Mauri Joseph David, DO [address] [place] [facility] [address] PCP - General Internal Medicine 08/02/21 Gerry Mendoza MD [address] [place] [address] Referring Urology 08/02/21 Refinery Operator Relationship Specialty Start Date End Date Mauri Joseph Frankie, DO [address] [place] [facility] [address] PCP - General Internal Medicine 08/02/21 Gerry Mendoza MD [address] [place] [address] Referring Urology 08/02/21 Refinery Operator Relationship Specialty Start Date End Date MauriJoseph, DO [address] [place] [address] PCP - General Internal Medicine 08/02/21 Gerry Mendoza MD [address] [place] [address] Referring Urology 08/02/21 Refinery Operator Relationship Specialty Start Date End Date MauriJoseph, DO [address] [place] [place] [address] PCP - General Internal Medicine 08/02/21 Gerry Mendoza MD [address] [place] [address] Referring Urology 08/02/21 Refinery Operator Relationship Specialty Start Date End Date Joseph Camacho, DO [address] [place] [id number] PCP - General Internal Medicine 08/02/21 Gerry Mendoza MD [address] [place] [address] Referring Urology 08/02/21 Refinery Operator Relationship Specialty Start Date End Date Joseph Camacho, DO PCP - General Internal Medicine 08/02/21 Gerry Mendoza MD [address] [place] [address] Referring Urology 08/02/21 Refinery Operator Relationship Specialty Start Date End Date Joseph Camacho, DO PCP - General Internal Medicine 08/02/21 Gerry Mednoza MD [address] [place] [address] Referring Urology 08/02/21 FOR RECORDS PERTAINING TO PATIENTS WHO ARE OR HAVE BEEN ENROLLED IN A CHEMICAL DEPENDENCY/SUBSTANCEABUSE PROGRAM, SOME INFORMATION MAY BE OMITTED. This clinical summary was aggregated from multiple sources. Caution should be exercised in using it in the provision of clinical care. This summary normalizes information from multiple sources, and as a consequence, information in this document may materially change the coding, format and clinical context of patient data. In addition, data may be omitted in some cases. CLINICAL DECISIONS SHOULD BE BASED ON THE PRIMARY CLINICAL RECORDS. [facility] [employer] [facility]. provides no warranty or guarantee of the accuracy or completeness of information in this document.
== END 2023-07-03 13:55 | disposition home or self-care (01) ==
LOC: MN 13:56
PROVIDERS: PCP Internal Medicine
DX: E11.9 Type 2 diabetes mellitus without complications (principal); Z79.84 Long term (current) use of oral hypoglycemic drugs
CPT/HCPCS: G0108

== ENCOUNTER 2023-09-17 11:13 | Outpatient (OUT) | payer MEDICARE, BC, SELFPAY ==
[2023-09-17 12:42] LABS: Prostate Specific Antigen Dx 1.17 ng/mL (<=4.00)
== END 2023-09-17 11:14 | disposition home or self-care (01) ==
LOC: LAB 11:15
PROVIDERS: PCP Internal Medicine; Visit Provider Urology
DX: C61 Malignant neoplasm of prostate (principal); N40.1 Benign prostatic hyperplasia with lower urinary tract symptoms
CPT/HCPCS: 36415; 84153

== ENCOUNTER 2024-06-15 09:30 | Outpatient (OUT) | payer MEDICARE, BC, SELFPAY ==
[2024-06-15 10:06] LABS: Estimated Average Glucose 148 mg/dL; Glycohemoglobin A1C 6.8 % (4.5-6.2)
[2024-06-15 10:09] LABS: Basophils Absolute Auto 0.1 10^3/uL (0.0-0.1); Basophils Percent Auto 1.3 % (0.2-2.0); Eosinophils Absolute Auto 0.4 10^3/uL (0.0-0.7); Eosinophils Percent Auto 6.3 % (0.9-7.0); Hematocrit 49.5 % (42.0-54.0); Hemoglobin 16.6 g/dL (14.0-18.0); Immature Granulocytes Abs Auto 0.02 10^3/uL (0.00-0.03); Immature Granulocytes Pct Auto 0.3 % (0.0-0.5); Lymphocytes Absolute Auto 1.9 10^3/uL (1.2-3.8); Lymphocytes Percent Auto 30.1 % (20.5-60.0); Mean Corpuscular HGB Conc 33.5 g/dL (29.9-35.2); Mean Corpuscular Hemoglobin 31.7 pg (25.9-34.0); Mean Corpuscular Volume 94.5 fL (80.0-94.0); Mean Platelet Volume 10.6 fL (9.5-13.5); Monocytes Absolute Auto 0.4 10^3/uL (0.3-0.8); Monocytes Percent Auto 6.9 % (1.7-12.0); Neutrophils Absolute Auto 3.5 10^3/uL (1.4-6.5); Neutrophils Percent Auto 55.1 % (43.0-75.0); Platelet Count 228 10^3/uL (150-450); Red Blood Count 5.24 10^6/uL (4.70-6.10); Red Cell Distribution Width 12.7 % (11.0-15.0); White Blood Count 6.4 10^3/uL (4.0-11.0)
[2024-06-15 10:12] LABS: Creatinine Urine Random 144.69 mg/dL (20.00-300.00); Microalbum Creatinine Ratio Ur 12.4 mg/g (0.0-29.9); Microalbumin Urine Random 1.8 mg/dL (<=30.0)
[2024-06-15 10:21] LABS: Alanine Aminotransferase 51 U/L (16-63); Albumin Globulin Ratio 1.2; Albumin Level 3.8 g/dL (3.4-5.0); Alkaline Phosphatase 99 U/L (46-116); Anion Gap 13.1; Aspartate Amino Transferase 28 U/L (15-37); BUN Creatinine Ratio 15.2; Bilirubin Total 0.8 mg/dL (0.2-1.0); Calcium 9.1 mg/dL (8.5-10.1); Carbon Dioxide 28.9 mmol/L (21.0-32.0); Chloride 106 mmol/L (98-107); Chol HDL Ratio 2.9; Cholesterol 147 mg/dL (<=200); Estimated GFR (African America >60 (>=60 mL/min/1.73m^2); Estimated GFR (Non-African Ame >60 (>=60 mL/min/1.73m^2); Globulin 3.3 g/dL; Glucose 135 mg/dL (74-106); HDL Cholesterol 50 mg/dL (40-60); LDL Cholesterol Calculated 79.2 mg/dL; Sodium 144 mmol/L (136-145); Total Protein 7.1 g/dL (6.4-8.2); Triglycerides 89 mg/dL (<=150); VLDL CHOLESTEROL 17.8 mg/dL
== END 2024-06-15 09:31 | disposition home or self-care (01) ==
LOC: LAB 09:30
PROVIDERS: PCP Internal Medicine; Visit Provider Internal Medicine
DX: E11.65 Type 2 diabetes mellitus with hyperglycemia (principal); E78.00 Pure hypercholesterolemia, unspecified; I10 Essential (primary) hypertension
CPT/HCPCS: 36415; 80053; 80061; 82043; 82570; 83036; 85025

== ENCOUNTER 2024-09-15 09:30 | Outpatient (OUT) | payer MEDICARE, BC, SELFPAY ==
--- OUTSIDE RECORDS SUMMARY | 2024-09-15 09:56 | XMS_ITS | CCD ---
Author Organization [facility] Care Team Providers Care Pulp Cooker Name Role Phone Joseph Camacho DO Primary Care Provider Reji JOHNS, Emmanuel R Unavailable JOSEPH CAMACHO Primary Care Physician Joseph Camacho DO Primary Care Provider Reji JOHNS, Emmanuel R Unavailable Joseph Camacho Unavailable TAMMY, DR AUDRA Walsh Admitting Unavailable TAMMY, DR AUDRA Walsh Attending Unavailable BALL, DR HORAN Primary Care Unavailable TRACYELEAnkur, DR AUDRA Walsh Consulting Unavailable MENDOZA, EMMANUEL Attending Unavailable BALL, DR HORAN Primary Care Unavailable MENDOZA, EMMANUEL Consulting Unavailable MENDOZA, EMMANUEL Admitting Unavailable BALL, DR HORAN Admitting Unavailable BALL, DR HORAN Attending Unavailable BALL, DR HORAN Consulting Unavailable BALL, DR HORAN Primary Care Unavailable MENDOZA, EMMANUEL Attending Unavailable MENDOZA, EMMANUEL Consulting Unavailable MENDOZA, EMMANUEL Admitting Unavailable BALL, DR HORAN Primary Care Unavailable BALL, DR HORAN Admitting Unavailable BALL, DR HORAN Attending Unavailable BALL, DR HORAN Consulting Unavailable BALL, DR HORAN Primary Care Unavailable MENDOZA, EMMANUEL Attending Unavailable BALL, DR HORAN Primary Care Unavailable MENDOZA, EMMANUEL Consulting Unavailable MENDOZA, EMMANUEL Admitting Unavailable MENDOZA, EMMANUEL Consulting Unavailable BALL, DR HORAN Primary Care Unavailable MENDOZA, EMMANUEL Admitting Unavailable MENDOZA, EMMANUEL Attending Unavailable MENDOZA, EMMANUEL Attending Unavailable BALL, DR HORAN Primary Care Unavailable MENDOZA, EMMANUEL Admitting Unavailable MENDOZA, EMMANUEL Consulting Unavailable TRACYELEAnkur, DR AUDRA Walsh Consulting Unavailable ZIEBER, DR WILY Pascual Consulting Unavailable AGUBOSIMSHARYN Consulting Unavailable GUSTAVO JIMÉNEZ Consulting Unavailable Joseph Camacho DO Primary Care Provider Reji JOHNS, Emmanuel R Unavailable Joseph Camacho DO Primary Care Provider Emmanuel Mendoza MD Unavailable La MUNOZ Referring Unavailable La MUNOZ Attending Unavailable JOSEPH CAMACHO Primary Care Unavailable DO Joseph Camacho Primary Care Provider MD Reno Chaparro Attending Provider [phone] Joseph Camacho Primary Care Unavailable Reno Chaparro Attending Unavailable Shankar Imad Admitting Unavailable Emmanuel MENDOZA Attending Unavailable Emmanuel MENDOZA Attending Unavailable Allergies Allergy Classification Reported Allergen(s) Allergy Type Date of Onset Reaction(s) Facility (1 source) No Known Medication Allergies; Translations: [No Known Medication Allergies] Propensity to adverse reactions (disorder) [facility] Repository Medications Current Medications Medication Drug Class(es) Dates Sig (Normalized) Sig (Original) amLODIPine 5 mg / benazepril hydrochloride 20 mg oral capsule (20 sources) Dihydropyridine Calcium Channel Mirela, Angiotensin Converting Enzyme Inhibitor Start: 01-24-2019 take 1 capsule by mouth once daily Amlodipine-Benaze pril Active 1 CAP PO Daily December 11, 2023 12:00am Comment on above: Take 1 capsule by [facility] once daily. atorvastatin 20 mg oral tablet (20 sources) HMG-CoA Reductase Inhibitor Start: 01-24-2019 take 20 mg by mouth once daily Atorvastatin Active 20 MG PO Daily December 11, 2023 12:00am Comment on above: Take 20 mg by mouth daily at bedtime. hyoscyamine sulfate 0.12 mg / methenamine 118 mg / methylene blue 10 mg / phenyl salicylate 36 mg / sodium phosphate, monobasic 40.8 mg oral capsule (2 sources) Oxidation-Reduction Agent Start: 09-10-2022 Uribel oral capsule 1 cap(s), Oral, BID, 60 cap(s), Refill(s) 4, [facility]/pharmacy #[id number], 175, cm, 09/10/22 10:04:00 EDT, Height/Length Dosing, 88.9, kg, 09/10/22 10:04:00 EDT, Weight Dosing Start Date: 09/10/22 Status: Ordered metFORMIN hydrochloride 500 mg oral tablet (6 sources) Biguanide Start: 12-11-2023 take 500 mg by mouth twice daily at mealtime Metformin Active 500 MG PO Twice daily with meals December 11, 2023 8:36am Start: 12-11-2023 End: 12-11-2023 take 500 mg by mouth once daily Metformin Discontinued 500 MG PO Daily December 11, 2023 8:27am December 11, 2023 8:36am Start: 10-19-2023 End: 12-11-2023 take 1 tablet by mouth once daily at breakfast Metformin Discontinued 0 .ROUTE .COMPLEX 180 October 19, 2023 1:22pm December 11, 2023 8:27am TAKE 1 TABLET BY MOUTH ONCE A DAY WITH BREAKFAST AND INCREASE TO BRAKFAST AND SUPPER AFTER 1 MONTH Start: 10-19-2023 End: 10-19-2023 take 1 tablet by mouth twice daily Metformin Discontinued 500 MG PO October 19, 2023 12:00am October 19, 2023 1:22pm 1 tablet with a meal Orally twice daily w/ food Start: 09-21-2023 metformin 500 mg Tab Refills(s) 0 Start Date: 09/21/23 Status: Ordered Start: 06-23-2023 take 1 tablet by carlos manuel th twice daily metFORMIN HCl 500 MG 1 tablet with a meal Orally twice daily w/ food for 30 days Start by taking 1 daily w/ bkfst and increase to bkfst and supper after one month Jun, Active Rznhfpqcmhfrd-Otehogyv-Oeerh n (MULTIVITAMIN 50 PLUS) tab (10 sources) Multivitamins-Mi nerals-Lutein (MULTIVITAMIN 50 PLUS) tab Take 1 tablet by mouth once daily. Active Multivitamins-Mi nerals-Lutein (MULTIVITAMIN 50 PLUS) tab Take 1 tablet by mouth once daily. 0 Active Comment on above: Take 1 tablet by carlos manuel th once daily. sildenafil 100 mg oral tablet (6 sources) Phosphodiesterase 5 Inhibitor Start: 01-20-20 take 1 tablet by mouth once daily as needed Sildenafil Active 0 .ROUTE .COMPLEX 6 January 20, 2024 8:55pm TAKE 1 TABLET BY MOUTH ONCE A DAY NEEDED FOR ERECTILE DYSFUNCTION Start: 12-11-2023 End: 01-20-2024 take 100 mg by mouth once daily Sildenafil Discontinue d 100 MG PO Daily December 11, 2023 12:00am January 20, 2024 8:55pm Start: 12-10-2022 take 1 tablet by carlos manuel th once daily as needed Sildenafil Citrate 100 MG 1 tablet as needed Orally Once a day, as needed for ED Dec, Active tadalafil 20 mg oral tablet (5 sources) Phosphodiesterase 5 Inhibitor Tadalafil 20 MG 1 tablet Orally as needed Active tamsulosin hydrochloride 0.4 mg oral capsule (11 sources) alpha-Adrenergic Mirela Start: 09-11-19 End: 09-16-19 take 0.4 mg by mouth twice daily Tamsulosin Active 0.4 MG PO Twice daily December 11, 2023 12:00am take 1 capsule by [facility] every twenty-four hours Tamsulosin HCl 0.4 MG [...] completed, # 2 tab(s), Refills(s) 0, Pharmacy: [facility]/pharmacy #[id number], 175, cm, 09/10/22 10:04:00 EDT, Height/Length Dosing, 88.... Start Date: 09/10/22 Status: Ordered Naproxen (7 sources) Nonsteroidal Anti-inflammatory Drug Aleve [...] on above: Take 1 tablet by carlos manuelcassidy bacon q 12 HR. Problems Active Problems Problem Classification Problem Date Documented Date Episodic/Chronic Calculus of urinary tract (13 sources) History of calculus of kidney; Translations: [Personal history of urinary calculi] Onset: 10-25-2021 08-02-2021 Episodic Cancer of prostate (20 sources) Malignant tumor of prostate; Translations: [Malignant neoplasm of prostate] Onset: 09-23-2021 Resolved: 10-16-2022 Chronic Cancer of prostate (2 sources) History of malignant neoplasm of prostate; Translations: [Personal history of malignant neoplasm of prostate] Episodic Diabetes mellitus with complications (9 sources) Type 2 diabetes mellitus; Translations: [Type 2 diabetes mellitus with hyperglycemia] Chronic Diabetes mellitus without complication (1 source) Diabetes mellitus 09-21-2023 Chronic Diabetes mellitus without complication (20 sources) Glycosuria; Translations: [Glycosuria] Onset: 10-25-2021 01-23-2020 Episodic Disorders of lipid metabolism (20 sources) Hyperlipidemia; Translations: [Pure hypercholesterolemia] Onset: 10-25-2021 09-09-2021 Chronic Essential hypertension (18 sources) Hypertensive disorder; Translations: [Essential hypertension] Onset: 06-30-2022 09-09-2021 Chronic Genitourinary symptoms and ill-defined conditions (11 sources) Nocturia; Translations: [Nocturia] Onset: 10-25-2021 Episodic Hyperplasia of prostate (17 sources) Benign prostatic hypertrophy with outflow obstruction; Translations: [Benign prostatic hyperplasia with lower urinary tract symptoms] Onset: 10-05-2017 Chronic Osteoarthritis (7 sources) Osteoarthritis of knee; Translations: [Unilateral primary osteoarthritis, left knee] Chronic Other aftercare (3 sources) Other senior care (current) drug therapy; Translations: [OTH [facility] CURRENT DRUG THERAPY] Onset: 06-30-2022 Episodic Other connective tissue disease (7 sources) History of total knee arthroplasty; Translations: [Presence of left artificial knee joint] Chronic Other diseases of kidney and ureters (5 sources) Hydronephrosis 08-02-2021 Episodic Other male genital [...] Episodic Other nutritional; endocrine; and metabolic disorders (5 sources) Body mass index 25-29 - overweight 11-11-2019 Episodic Other nutritional; endocrine; and metabolic disorders (5 sources) Overweight; Translations: [Overweight] 12-11-2023 Episodic Other nutritional; endocrine; and metabolic disorders (3 sources) Overweight; Translations: [Overweight] Episodic Other screening for suspected conditions (not mental disorders or infectious disease) (7 sources) Raised prostate specific antigen; Translations: [Elevated [...] Test Name Value Interpretation Reference Range Facility Capillary blood glucose olinda urement by glucometer (mass/volume)Ordered By: Reno Chaparro on 03-10-2024 Glucose [Mass/Vol] 115 mg/dL Normal [facility] Comment on above: Random Glucose Refer ence Range is dependent on time and content of last meal. Glucose of more than 200 mg/dL in a nonstressed, ambulatory subject supports the diagnosis of Diabetes Mellitus. Result Comment: [place] om Glucose Reference Range is dependent on time and content of last meal. Glucose of more than 200 mg/dL in a nonstressed, ambulatory subject supports the diagnosis of Diabetes Mellitus. Performed By: #### G LULS #### Point of Care testing , Glucose Poct Glucometerson 1 Commemt1 Glu2: Cleaned Meter Normal [facility] Comment on above: Result Comment: PERF ORMED BY: [place] [address] PATHOLOGIST BIOLOGICAL INSPECTOR NAZARIO ARCHIBALD M.D. Performed By: #### G LULS #### Point of Care testing , No Panel InformationOrdered By: Reno Chaparro on 03-10-2024 Bedside Glucose Comment Glu2: cleaned meter [facility] Pathology Request for Lab Co rpon 03-10-2024 Pathology Request for Lab Ozzie Normal [facility] Comment on above: Order Comment: PATHO LOGY GI SPECIMEN Result Comment: See report. Scanned copy available in EMR. PERFORMED BY: [place] [address] PATHOLOGIST BIOLOGICAL INSPECTOR NAZARIO ARCHIBALD M.D. Performed By: #### P ATH TO [facility] #### [address] CNOVon 10-14-2023 CNOV Office Visit (RADTSA) NAHIDLAMONT Mireles ([id number]) 1950 Date Time Provider Department 10/14/23 11:00 AM La MUNOZ During your visit today, we recorded the following information about you: Temperature Pulse Respiration Blood pressure 97.5 degrees 89/minute 16/minute 124/79 Weight 85.4 kg La Munoz MD 10/20/2023 10:09 AM Signed Radiation Oncology - Follow Up [...] sources, 32.81 mCi. INTERVAL HISTORY: Doing well. No new problems or concerns. 11/14/21:Doing well. Still with some increased urinary urgency and frequency occasional dysuria. Overall improving. No hematuria. PSA HISTORY: PSA (ng/mL) Date Value 10/28/2021 7.79 PSA. (no units) Date Value 09/17/2023 1.17 09/08/2022 1.48 04/15/2022 2.03 ALLERGIES No Known Allergies tamsulosin (FLOMAX) 0.4 mg Take by mouth. amLODIPine-benazepri l (LOTREL) 5-20 mg per capsule Take 1 capsule by mouth once daily. atorvastatin (LIPITOR) 20 mg tablet Take 20 mg by mouth daily at bedtime. Multivitamins-Minera ls-Lutein (MULTIVITAMIN 50 PLUS) tab Take 1 tablet by mouth once daily. (Patient not taking: Reported on 10/14/2023) REVIEW OF SYSTEMS: D/N = 4-6/1-3 Hematuria: no AUA: 5 Bowel movement frequency: 1/day Bowel movement quality: normal Blood per rectum: none Androgen deprivation: Never. PHYSICAL EXAM: BP 124/79 Pulse 89 Temp 36.4 ?C (97.5 ?F) (Temporal) Resp 16 Wt 85.4 kg (188 lb 4.4 oz) SpO2 95% BMI 27.40 kg/m? KPS: 100 General appearance: Alert and [...] 2021. Doing well. PSA continues to decline. He continues close follow-up with Dr. Mendoza including surveillance of his PSA. Otherwise asked patient come back in 1 year for further post radiation follow-up visit. Signed by: La Munoz MD cc: Joseph Camacho ([facility]) [address] [place], [place] [id number] Nelida Mccarthy, RN 10/20/2023 10:09 AM Signed AUA= 5 Nelida Ash RN Referring Provider: La MUNOZ [[id number]] Allergies As of Date: 10/14/2023 (No Known Allergies) Date Reviewed: 10/14/2023 Reviewed by: Nelida Ash, RN - Fully Assessed Reason for Visit: Prostate Cancer [590] Primary Visit Diagnosis:History of prostate cancer [Z85.46] Order(s):PSA (OUTSIDE) [[id number]] Order #: [id number] Prescriptions as of 10/20/2023 - tamsulosin (FLOMAX) 0.4 mg Take by mouth. - amLODIPine-benazepri l (LOTREL) 5-20 mg per capsule Take 1 capsule by mouth once daily. - atorvastatin (LIPITOR) 20 mg tablet Take 20 mg by mouth daily at bedtime. - Multivitamins-Minera ls-Lutein (MULTIVITAMIN 50 PLUS) tab Take 1 tablet by mouth once daily. Problem List As Of Date 10/14/2023 Noted Resolved Prostate cancer (HCC) [C61] 10/16/2022 10/16/2022 Disposition: Return in about 1 year (around 10/13/2024). Follow-up and Disposition History for Encounter Date Provider Department Center 10/14/2023 [id number] [id number] Encounter Status:Closed by La MUNOZ on 10/20/23 Normal [facility] Patient Educationon 09-21-19 Patient Education Oncology Prostate Cancer Screening Prostate cancer screening is testing that is done to check for the presence of prostate cancer in men. The prostate gland is a walnut-sized gland that is located below the bladder and in front of the rectum in males. The function of the prostate is to add fluid to semen during ejaculation. Prostate cancer is one of the most common types of cancer in men. Who should have prostate cancer screening? Screening recommendations vary based on age and other risk factors, as well as between the professional organizations who make the recommendations. In general, screening is recommended if: ? You are age 50 to 70 and have an average risk for prostate cancer. You should talk with your health care provider about your need for screening and how often screening should be done. Because most prostate cancers are slow growing and will not cause , screening in this age group is generally reserved for men who have a 10- to 15-year life expectancy. ? You are younger than age 50, and you have these risk factors: ? Having a father, brother, or uncle who has been diagnosed with prostate cancer. The risk is higher if your family member's cancer occurred at an early age or if you have multiple family members with prostate cancer at an early age. ? Being a male who is Black or is of [place] or sub-Saharan descent. In general, screening is not recommended if: ? You are younger than age 40. ? You are between the ages of 40 and 49 and you have no risk factors. ? You are 70 years of age or older. At this age, the risks that screening can cause are greater than the benefits that it may provide. If you are at high risk for prostate cancer, your health care provider may recommend that you have screenings more often or that you start screening at a younger age. How is screening for prostate cancer done? The recommended prostate cancer screening test is a blood test called the prostate-specific antigen (PSA) test. PSA is a protein that is made in the prostate. As you age, your prostate naturally produces more PSA. Abnormally high PSA levels may be caused by: ? Prostate cancer. ? An enlarged prostate that is not caused by cancer (benign prostatic hyperplasia, or BPH). This condition is very common in older men. ? A prostate gland infection (prostatitis) or urinary tract infection. ? Certain medicines such as male hormones (like testosterone) or other medicines that raise testosterone levels. A rectal exam may be done as part of prostate cancer screening to help provide information about the size of your prostate gland. When a rectal exam is performed, it should be done after the PSA level is drawn to avoid any effect on the results. Depending on the PSA results, you may need more tests, such as: ? A physical exam to check the size of your prostate gland, if not done as part of screening. ? Blood and imaging tests. ? A procedure to remove tissue samples from your prostate gland for testing (biopsy). This is the only way to know for certain if you have prostate cancer. What are the benefits of prostate cancer screening? ? Screening can help to identify cancer at an early stage, before symptoms start and when the cancer can be treated more easily. ? There is a small chance that screening may lower your risk of dying from prostate cancer. The chance is small because prostate cancer is a slow-growing cancer, and most men with prostate cancer from a different cause. What are the risks of prostate cancer screening? The main risk of prostate cancer screening is diagnosing and treating prostate cancer that would never have caused any symptoms or problems. This is called overdiagnosisand overtreatment. PSA screening cannot tell you if your PSA is high due to cancer or a different cause. A prostate biopsy is the only procedure to diagnose prostate cancer. Even the results of a biopsy may not tell you if your cancer needs to be treated. Slow-growing prostate cancer may not need any treatment other than monitoring, so diagnosing and treating it may cause unnecessary stress or other side effects. Questions to ask your health care provider ? When should I start prostate cancer screening? ? What is my risk for prostate cancer? ? How often do I need screening? ? What type of screening tests do I need? ? How do I get my test results? ? What do my results mean? ? Do I need treatment? Where to find more information ? The [place] Cancer Society: www.cancer.org ? [place] Urological Association: www.auanet.org Contact a health care provider if: ? You have difficulty urinating. ? You have pain when you urinate or ejaculate. ? You have blood in your urine or semen. ? You have pain in your back or in the area of your prostate. Summary ? Prostate cancer is a common type of cancer in men. The prostate gland is located below the bladder and in front of the rectum. This gland adds flu (more content not included)... Normal [facility] Urology Office/Clinic Noteon 09-21-2023 Urology Office/Clinic Note Chief Complaint 6m PSA HPI Staff 6 month f/u with PSA Dx: Prostate cancer (Brachytherapy 10/03/21) and BPH with urinary obstruction Tamsulosin 0.4mg BID *needs refill of Tamsulosin. No longer taking Uribel. PSA done 09/17/23 is 1.17 Recently dx'd w/DM. Has started taking Metformin. Still getting up 1-2x/night. Denies frequency during the day. Depending on water & coffee intake. Denies complaints w/urinary stream. No concerns at this time. History of Present Illness Tests reviewed: reviewed UA, PSA I have reviewed the previous health record information and history for this patient from Dr. Mendoza. I have reviewed and verified the staff HPI to be accurate for this encounter. Review of Systems PHQ Score Initial Depression Screen Score: 0 SCORE ROS - Provider Constitutional: denies weight loss, [...] HPI. Physical Exam Vitals & Measurements HR: 70(Peripheral) RR: 16 BP: 132/80 HT: 69 in HT: 175 cm WT: 84.5 kg WT: 185.9 lb BMI: 27.59 General Appearance: alert, no distress, well nourished, well developed male. Genitourinary: normal scrotum, normal testes, normal urethra, normal epididymis, normal vas deferens/spermatic cord. Flank Pain: none. Bladder: nonpalpable. Assessment/Plan 1. Prostate CA (C61: Malignant neoplasm of prostate) PSA: 10/28/21 - 7.79 03/03/22 - 2.70 09/08/22 - 1.48 03/23/23 - 1.57 09/17/23 - 1.17 MRI fusion prostate bx 07/25/21 - Irma 6 (3+3), GG1, x 11 cores S/P Brachytherapy 10/03/21. PSA decreased from prior. Discussed level should continue to decrease for the 3 years PO radiation. Will continue to monitor level. -PSA in 1 year 2. BPH with urinary obstruction (N40.1: Benign prostatic hyperplasia with lower urinary tract symptoms) UA today negative for blood and infection. Taking Flomax 0.4 mg bid. Satisfied with overall sx control with medication. Feels he empties completely. -Cont med above. Refills sent to [facility]. 3. Glucosuria (R81: Glycosuria) UA today shows 100 mg/dL. Recently dx'd w/ DM. On Metformin. Reports most recent A1c is 7.1. Follow-up With When Contact Information REJI JOHNS, Emmanuel Pascual, [facility] [address], [place] [address]- [phone] Additional Instructions: 1 yr w/ PSA Patient Education Prostate Cancer Screening I, Lacey Echeverria, personally scribed for Dr. Mendoza on 09/21/2023 11:45:27. . Documentation recorded by the scribe, Lacey Echeverria, accurately reflects the services(s) I performed and decisions made by me. Authenticated by Dr. Mendoza on 09/21/2023 11:47:45. Problem List/Past Medical History Ongoing BMI 29.0-29.9,adult BPH with urinary obstruction Diabetes Elevated PSA Glucosuria Gross hematuria Hyperlipidemia Hypertension Prostate CA Historical History of kidney stones Hydronephrosis with obstructing calculus Nocturia Procedure/Surgical History Cystoscope (09/30/2022), Brachytherapy (10/03/2021), MR/US fusion guided prostate biopsy (07/25/2021), Cystoscopy to remove object (02/07/2020), Lithotripsy (02/02/2020), Colonoscopy (2018), ESWL - Extracorporeal shockwave lithotripsy for renal calculus (03/13/2016), Cystoscopy and retrograde pyelography (02/17/2016), Appendectomy, Bilateral replacement of knee joints. Medications amLODIPine-benazepri l 5 mg-20 mg Cap, 1 cap(s), Oral, Daily atorvastatin 20 mg Tab, 20 mg= 1 tab(s), Oral, Daily metformin 500 mg Tab tamsulosin 0.4 mg Cap Uribel oral capsule, 1 cap(s), Oral, BID, 4 refills, Not taking Allergies No Known Medication Allergies Social History Alcohol - Low Risk, 06/24/2021 Current, 1-2 times per month, 01/24/2019 Substance Abuse - Denies Substance Abuse, 06/24/2021 Tobacco - Denies Tobacco Use, 06/24/2021 Former smoker, quit more than 30 days ago Tobacco Use:. Never Smokeless Tobacco Use:. Cigarettes, Household tobacco concerns: No. Yes, 09/21/2023 Family History Arthritis: Mother. Hypertension: Father. Immunizations Vaccine Date Status SARS-CoV-2 (COVID-19) mRNA BNT-162b2 vax 05/17/2021 Recorded SARS-CoV-2 (COVID-19) mRNA BNT-162b2 vax 05/2021 Recorded SARS-CoV-2 (COVID-19) mRNA BNT-162b2 vax 11/01/2020 Recorded SARS-CoV-2 (COVID-19) mRNA BNT-162b2 vax 10/27/2020 Recorded SARS-CoV-2 (COVID-19) mRNA BNT-162b2 vax 10/09/2020 Recorded pneumococcal 13-valent vaccine 05/28/2018 Recorded hepatitis B adult vaccine 11/12/2004 Recorded hepatitis B adult vaccine 06/11/2004 Recorded hepatitis B adult vaccine 05/07/2004 Rec (more content not included)... Normal [facility] Comment on above: Result Comment: Elec tronically Signed By: Emmanuel MENDOZA MD\.br\Date and Time Signed: 09/21/23 11:47 EDT\.br\Electronically Co-Signed By: Lacey Echeverria\.br\Date and Time Co-Signed: 09/21/23 11:45 EDT PSA (OUTSIDE)on 09-17-2023 [facility] CBC AUTO DIFFon 06-24-2022 BASO # 0.1 103/ul Normal 0.0-0.1 [facility] Comment on above: Performed By: #### C VDTB #### [facility] [address] [address] [address] Mk Griffin Basophils/100 WBC (Bld) 1.0 % Normal 0.2-2.0 [facility] Comment on above: Performed By: #### C VDTB #### [facility] [address] [place] [address] Dr. Mk Griffin EO # 0.4 103/ul Normal 0.0-0.7 [facility] Comment on above: Performed By: #### C VDTBH #### [facility] [address] [place] [address] Dr. Mk Griffin Eosinophils/100 WBC (Bld) 4.9 % Normal 0.9-7.0 [facility] Comment on above: Performed By: #### C VDTBH #### [facility] [address] [place] [address] Dr. Mk Griffin Erythrocyte distribution width (RBC) [Ratio] 13.0 % Normal 11.0-15.0 [facility] Comment on above: Performed By: #### C VDTBH #### [facility] [address] [place] [address] Dr. Mk Griffin Hematocrit (Bld) [Volume fraction] 48.0 % Normal 42.0-54.0 [facility] Comment on above: Performed By: #### C VDTBH #### [facility] [address] [place] [address] Dr. Mk Griffin Hemoglobin (Bld) [Mass/Vol] 16.2 g/dL Normal 14.0-18.0 [facility] Comment on above: Performed By: #### C VDTBH #### [facility] [address] [place] [address] Dr. Mk Griffin IG # 0.03 10e3/ul Normal 0.00-0.03 [facility] Comment on above: Performed By: #### C VDTBH #### [facility] [address] [place] [address] Dr. Mk Griffin IG % 0.4 % Normal 0.0-0.5 [facility] Comment on above: Performed By: #### C VDTBH #### [facility] [address] [place] [address] Dr. Mk Griffin LYMPH # 1.9 103/ul Normal 1.2-3.8 [facility] Comment on above: Performed By: #### C VDTBH #### [facility] [address] [place] [address] Dr. Mk Griffin Lymphocytes/100 WBC (Bld) 26.4 % Normal 20.5-60.0 [facility] Comment on above: Performed By: #### C VDTBH #### [facility] [address] [place] [address] Dr. Mk Griffin MANUAL DIFF REQ NO Normal [facility] Comment on above: Performed By: #### C VDTBH #### [facility] [address] [place] [address] Dr. Mk Griffin MCH (RBC) [Entitic mass] 31.1 pg Normal 25.9-34.0 [facility] Comment on above: Performed By: #### C VDTBH #### [facility] [address] [place] [address] Dr. Mk Griffin MCHC (RBC) [Mass/Vol] 33.8 g/dL Normal 29.9-35.2 [facility] Comment on above: Performed By: #### C VDTBH #### [facility] [address] [place] [address] Dr. Mk Griffin MCV (RBC) [Entitic vol] 92.1 fL Normal 80.0-94.0 [facility] Comment on above: Performed By: #### C VDTBH #### [facility] [address] [place] [address] Dr. Mk Griffin MONO # 0.5 103/ul Normal 0.3-0.8 [facility] Comment on above: Performed By: #### C VDTBH #### [facility] [address] [place] [address] Dr. Mk Griffin Monocytes/100 WBC (Bld) 7.3 % Normal 1.7-12.0 [facility] Comment on above: Performed By: #### C VDTBH #### [facility] [address] [place] [address] Dr. Mk Griffin NEUT # 4.3 103/ul Normal 1.4-6.5 [facility] Comment on above: Performed By: #### C VDTBH #### [facility] [address] [address] [address] Mk Griffin Neutrophils/100 WBC (Bld) 60.0 % Normal 43.0-75.0 [facility] Comment on above: Performed By: #### C VDTBH #### [facility] [address] [place] [address] Dr. Mk Griffin Platelet mean volume (Bld) [Entitic vol] 10.3 fL Normal 9.5-13.5 [facility] Comment on above: Performed By: #### C VDTBH #### [facility] [address] [place] [address] Dr. Mk Griffin PLT 234 103/ul Normal 150-450 [facility] Comment on above: Performed By: #### C VDTBH #### [facility] [address] [place] [address] Dr. Mk Griffin RBC 5.21 106/ul Normal 4.70-6.10 [facility] Comment on above: Performed By: #### C VDTBH #### [facility] [address] [place] [address] Dr. Mk Griffin WBC 7.2 103/ul Normal 4.0-11.0 [facility] Comment on above: Performed By: #### C VDTBH #### [facility] [address] [place] [address] Dr. Mk Griffin GLYCOHEMOGLOBIN A1Con 2022 ADA RECOMMENDATION SEE BELOW Normal [facility] Comment on above: Result Comment: ADA RECOMMENDED LIMIT 4.0 - 6.0 ADA THERAPEUTIC TARGET < 7.0 ACTION SUGGESTED > 7.0 Performed By: #### C VDTBH #### [facility] [address] [place] [address] Dr. Mk Griffin Glucose [Mass/Vol] 151 mg/dL Normal [facility] Comment on above: Performed By: #### C VDTBH #### [facility] [address] [place] [address] Dr. Mk Griffin HbA1c (Bld) [Mass fraction] 6.9 % Critically high 4.5-6.2 [facility] Comment on above: Performed By: #### C VDTBH #### [facility] [address] [address] [address] Mk Griffin LIPID PROFILEon 06-24-2022 CHOL-HDL RATIO NORM SEE BELOW Normal [facility] Comment on above: Result Comment: 3.3 - 4.4 LOW RISK 4.4 - 7.1 AVERAGE RISK 7.1 - 11.0 MODERATE RISK >11.0 HIGH RISK Performed By: #### L IPID, BMP, ALT #### [facility] [address] [address] [address] Mk Griffin Cholesterol [Mass/Vol] 151 mg/dL Normal <=200 [facility] Comment on above: Performed By: #### L IPID, BMP, ALT #### [facility] [address] [address] [address] Mk Griffin Cholesterol in HDL [Mass/Vol] 52 mg/dL Normal 40-60 [facility] Comment on above: Performed By: #### L IPID, BMP, ALT #### [facility] [address] [address] [address] Mk Griffin Cholesterol in LDL [Mass/Vol] 74.4 mg/dL Normal [facility] Comment on above: Performed By: #### L IPID, BMP, ALT #### [facility] [address] [address] [address] Mk Griffin Cholesterol.total/Majo sterol in HDL [Mass ratio] 2.9 {ratio} Normal [facility] Comment on above: Performed By: #### L IPID, BMP, ALT #### [facility] [address] [address] [address] Mk Griffin HDL NORMAL > or = 60 mg/dl - LOW CARDIOVASCULAR RISK <40 mg/dl - HIGH CARDIOVASCULAR RISK Normal [facility] Comment on above: Performed By: #### L IPID, BMP, ALT #### [facility] [address] [address] [address] Mk Griffin LDL CALC NORMAL SEE BELOW Normal [facility] Comment on above: Result Comment: <100 mg/dl OPTIMAL 100 - 129 mg/dl NEAR OR ABOVE OPTIMAL 130 - 159 mg/dl BORDERLINE HIGH 160 - 189 mg/dl HIGH >190 mg/dl VERY HIGH Performed By: #### L IPID, BMP, ALT #### [facility] [address] [address] [address] Mk Griffin Triglyceride [Mass/Vol] 123 mg/dL Normal <=150 [facility] Comment on above: Performed By: #### L IPID, BMP, ALT #### [facility] [address] [address] [address] Mk Griffin VLDL CALC 24.6 mg/dL Normal [facility] Comment on above: Performed By: #### L IPID, BMP, ALT #### [facility] [address] [address] [address] Mk Griffin PROF CHEM 8 (BAS METB)on Anion gap [Moles/Vol] 11.5 mmol/L Normal [facility] Comment on above: Performed By: #### L IPID, BMP, ALT #### [facility] [address] [address] [address] Mk Griffin Calcium [Mass/Vol] 9.0 mg/dL Normal 8.5-10.1 [facility] Comment on above: Performed By: #### L IPID, BMP, ALT #### [facility] [address] [address] [address] Mk Griffin Chloride [Moles/Vol] 106 mmol/L Normal 98-107 [facility] Comment on above: Performed By: #### L IPID, BMP, ALT #### [facility] [address] [address] [address] Mk Griffin CO2 [Moles/Vol] 28.5 mmol/L Normal 21.0-32.0 [facility] Comment on above: Performed By: #### L IPID, BMP, ALT #### [facility] [address] [address] [address] Mk Griffin Creatinine [Mass/Vol] 0.94 mg/dL Normal 0.70-1.30 [facility] Comment on above: Performed By: #### L IPID, BMP, ALT #### [facility] [address] [place] [address] Dr. Mk Griffin EGFR-AF NAMIBIAN >60 Normal >=60 [facility] Comment on above: Performed By: #### L IPID, BMP, ALT #### [facility] [address] [place] [address] Dr. Mk Griffin EGFR-NON AF NAMIBIAN >60 Normal >=60 [facility] Comment on above: Performed By: #### L IPID, BMP, ALT #### [facility] [address] [place] [address] Dr. Mk Griffin Glucose [Mass/Vol] 134 mg/dL Critically high 74-106 [facility] Comment on above: Performed By: #### L IPID, BMP, ALT #### [facility] [address] [place] [address] Dr. Mk Griffin Potassium [Moles/Vol] 4.0 mmol/L Normal 3.5-5.1 [facility] Comment on above: Performed By: #### L IPID, BMP, ALT #### [facility] [address] [place] [address] Dr. Mk Griffin Sodium [Moles/Vol] 142 mmol/L Normal 136-145 [facility] Comment on above: Performed By: #### L IPID, BMP, ALT #### [facility] [address] [place] [address] Dr. Mk Griffin Urea nitrogen [Mass/Vol] 10.0 mg/dL Normal 7.0-18.0 [facility] Comment on above: Performed By: #### L IPID, BMP, ALT #### [facility] [address] [place] [address] Dr. Mk Griffin Urea nitrogen/Creatinine [Mass ratio] 10.6 mg/mg Normal [facility] Comment on above: Performed By: #### L IPID, BMP, ALT #### [facility] [address] [place] [address] Dr. Mk Griffin SGPTon 06-24-2022 ALT [Catalytic activity/Vol] 49 U/L Normal 16-63 [facility] Comment on above: Performed By: #### L IPID, BMP, ALT #### [facility] [address] [address] [address] Mk Griffin GLYCOHEMOGLOBIN A1Con 2021 ADA RECOMMENDATION SEE BELOW Normal [facility] Comment on above: Result Comment: ADA RECOMMENDED LIMIT 4.0 - 6.0 ADA THERAPEUTIC TARGET < 7.0 ACTION SUGGESTED > 7.0 Performed By: #### C VDTBH #### [facility] [address] [address] [address] Mk Griffin Glucose [Mass/Vol] 123 mg/dL Normal [facility] Comment on above: Performed By: #### C VDTBH #### [facility] [address] [address] [address] Mk Griffin HbA1c (Bld) [Mass fraction] 5.9 % Normal 4.5-6.2 [facility] Comment on above: Performed By: #### C VDTBH #### [facility] [address] [address] [address] Mk Griffin Covid-19 PCR ([facility])on 09-07 SARS-CoV-2 (COVID-19) RNA RAFAEL+probe Ql (Unsp spec) Not detected Normal NOT DETECTED [facility] Comment on above: Result Comment: This test is not yet approved or cleared by the [place] FDA. When there are no FDA-approved or cleared tests available, and other criteria are met, FDA can make tests available under an emergency access mechanism called an Emergency Use Authorization (EUA). The EUA for this test is supported by the [employer] of Health and Human Service's (HHS's) declaration [...] SARS-CoV-2. Performed By: #### C VDTBH #### [facility] [address] [place] [address] Dr. Mk Griffin CBC AUTO DIFFon 09-18-2021 BASO # 0.1 103/ul Normal 0.0-0.1 [facility] Comment on above: Performed By: #### C VDTBH #### [facility] [address] [place] [address] Dr. Mk Griffin Basophils/100 WBC (Bld) 1.1 % Normal 0.2-2.0 [facility] Comment on above: Performed By: #### C VDTBH #### [facility] [address] [place] [address] Dr. Mk Griffin EO # 0.3 103/ul Normal 0.0-0.7 [facility] Comment on above: Performed By: #### C VDTBH #### [facility] [address] [place] [address] Dr. Mk Griffin Eosinophils/100 WBC (Bld) 5.2 % Normal 0.9-7.0 [facility] Comment on above: Performed By: #### C VDTBH #### [facility] [address] [place] [address] Dr. Mk Griffin Erythrocyte distribution width (RBC) [Ratio] 13.3 % Normal 11.0-15.0 [facility] Comment on above: Performed By: #### C VDTBH #### [facility] [address] [place] [address] Dr. Mk Griffin Hematocrit (Bld) [Volume fraction] 51.9 % Normal 42.0-54.0 [facility] Comment on above: Performed By: #### C VDTBH #### [facility] [address] [place] [address] Dr. Mk Griffin Hemoglobin (Bld) [Mass/Vol] 17.4 g/dL Normal 14.0-18.0 [facility] Comment on above: Performed By: #### C VDTBH #### [facility] [address] [address] [address] Mk Griffin IG # 0.03 10e3/ul Normal 0.00-0.03 [facility] Comment on above: Performed By: #### C VDTBH #### [facility] [address] [address] [address] Mk Griffin IG % 0.5 % Normal 0.0-0.5 [facility] Comment on above: Performed By: #### C VDTBH #### [facility] [address] [place] [address] Dr. Mk Griffin LYMPH # 2.1 103/ul Normal 1.2-3.8 [facility] Comment on above: Performed By: #### C VDTBH #### [facility] [address] [place] [address] Dr. Mk Griffin Lymphocytes/100 WBC (Bld) 32.2 % Normal 20.5-60.0 [facility] Comment on above: Performed By: #### C VDTBH #### [facility] [address] [place] [address] Dr. Mk Griffin MANUAL DIFF REQ NO Normal [facility] Comment on above: Performed By: #### C VDTBH #### [facility] [address] [place] [address] Dr. Mk Griffin MCH (RBC) [Entitic mass] 31.0 pg Normal 25.9-34.0 [facility] Comment on above: Performed By: #### C VDTBH #### [facility] [address] [place] [address] Dr. Mk Griffin MCHC (RBC) [Mass/Vol] 33.5 g/dL Normal 29.9-35.2 [facility] Comment on above: Performed By: #### C VDTBH #### [facility] [address] [place] [address] Dr. Mk Griffin MCV (RBC) [Entitic vol] 92.3 fL Normal 80.0-94.0 [facility] Comment on above: Performed By: #### C VDTBH #### [facility] [address] [place] [address] Dr. Mk Griffin MONO # 0.5 103/ul Normal 0.3-0.8 [facility] Comment on above: Performed By: #### C VDTBH #### [facility] [address] [place] [address] Dr. Mk Griffin Monocytes/100 WBC (Bld) 7.6 % Normal 1.7-12.0 [facility] Comment on above: Performed By: #### C VDTBH #### [facility] [address] [place] [address] Dr. Mk Griffin NEUT # 3.5 103/ul Normal 1.4-6.5 [facility] Comment on above: Performed By: #### C VDTBH #### [facility] [address] [place] [address] Dr. Mk Griffin Neutrophils/100 WBC (Bld) 53.4 % Normal 43.0-75.0 [facility] Comment on above: Performed By: #### C VDTBH #### [facility] [address] [place] [address] Dr. Mk Griffin Platelet mean volume (Bld) [Entitic vol] 10.3 fL Normal 9.5-13.5 [facility] Comment on above: Performed By: #### C VDTBH #### [facility] [address] [place] [address] Dr. Mk Griffin PLT 218 103/ul Normal 150-450 [facility] Comment on above: Performed By: #### C VDTBH #### [facility] [address] [place] [address] Dr. Mk Griffin RBC 5.62 106/ul Normal 4.70-6.10 [facility] Comment on above: Performed By: #### C VDTBH #### [facility] [address] [place] [address] Dr. Mk Griffin WBC 6.6 103/ul Normal 4.0-11.0 [facility] Comment on above: Performed By: #### C VDTBH #### [facility] [address] [place] [address] Dr. Mk Griffin PROF CHEM 8 (BAS METB)on Anion gap [Moles/Vol] 12.6 mmol/L Normal [facility] Comment on above: Performed By: #### B MP #### [facility] [address] [place] [address] Dr. Mk Griffin Calcium [Mass/Vol] 8.4 mg/dL Critically low 8.5-10.1 [facility] Comment on above: Performed By: #### B MP #### [facility] [address] [place] [address] Dr. Mk Griffin Chloride [Moles/Vol] 106 mmol/L Normal 98-107 [facility] Comment on above: Performed By: #### B MP #### [facility] [address] [place] [address] Dr. Mk Griffin CO2 [Moles/Vol] 27.5 mmol/L Normal 22.0-30.0 [facility] Comment on above: Performed By: #### B MP #### [facility] [address] [place] [address] Dr. Mk Griffin Creatinine [Mass/Vol] 1.04 mg/dL Normal 0.66-1.25 [facility] Comment on above: Performed By: #### B MP #### [facility] [address] [place] [address] Dr. Mk Griffin EGFR-AF NAMIBIAN >60 Normal >=60 [facility] Comment on above: Performed By: #### B MP #### [facility] [address] [place] [address] Dr. Mk Griffin EGFR-NON AF NAMIBIAN >60 Normal >=60 [facility] Comment on above: Performed By: #### B MP #### [facility] [address] [place] [address] Dr. Mk Griffin Glucose [Mass/Vol] 118 mg/dL Critically high 74-106 [facility] Comment on above: Performed By: #### B MP #### [facility] [address] [address] [address] Mk Griffin Potassium [Moles/Vol] 4.1 mmol/L Normal 3.4-5.0 [facility] Comment on above: Performed By: #### B MP #### [facility] [address] [address] [address] Mk Griffin Sodium [Moles/Vol] 142 mmol/L Normal 137-145 [facility] Comment on above: Performed By: #### B MP #### [facility] [address] [address] [address] Mk Griffin Urea nitrogen [Mass/Vol] 11.0 mg/dL Normal 7.0-18.0 [facility] Comment on above: Performed By: #### B MP #### [facility] [address] [place] [address] Dr. Mk Griffin Urea nitrogen/Creatinine [Mass ratio] 10.6 mg/mg Normal [facility] Comment on above: Performed By: #### B MP #### [facility] [address] [place] [address] Dr. Mk Griffin PROTIMEon 09-18-2021 INR Coag (PPP) [Relative time] 1.01 {INR} Normal [facility] Comment on above: Performed By: #### P TT, PT #### [facility] [address] [place] [address] Dr. Mk Griffin INR GUIDELINES SEE BELOW Normal [facility] Comment on above: Result Comment: BRYN RED INR: 2.0 - 3.0 CONDITIONS NOT LISTED BELOW 2.5 - 3.5 FOR PROSTHETIC HEART VALVE REPLACEMENT 2.5 - 3.5 RECURRENT THROMBOSIS Performed By: #### P TT, PT #### [facility] [address] [place] [address] Dr. Mk Griffin PT Coag (PPP) [Time] 10.9 s Normal 9.0-11.6 [facility] Comment on above: Performed By: #### P TT, PT #### [facility] [address] [place] [address] Dr. Mk Griffin PTTon 09-18-2021 aPTT Coag (Bld) [Time] 29.0 s Normal 22.3-36.2 [facility] Comment on above: Performed By: #### P TT, PT #### [facility] [address] [address] [address] Mk Griffin Vital Signs Date Time Vital Sign Value Performing Clinician Facility 03-10-2024 13:30-0400 Diastolic blood pressure 83 mm[Hg] DO Joseph Ball Work Phone: [facility] 03-10-2024 13:30-0400 Heart rate 72 /min DO Joseph Ball Work Phone: [facility] 03-10-2024 13:30-0400 Respiratory rate 20 /min DO Joseph Ball Work Phone: [facility] 03-10-2024 13:30-0400 SaO2% (BldA) [Mass fraction] 97 % DO Joseph Ball Work Phone: [facility] 03-10-2024 13:30-0400 Systolic blood pressure 129 mm[Hg] DO Joseph Ball Work Phone: [facility] 03-10-2024 11:32-0400 Body height 175.26 cm DO Joseph Ball Work Phone: [facility] 03-10-2024 11:32-0400 Body weight 83 kg DO Joseph Ball Work Phone: [facility] 12-11-2023 08:37-0400 Body height 175.26 cm DO Joseph Ball Work Phone: [facility] 12-11-2023 08:37-0400 Body mass index (BMI) [Ratio] 27.6 kg/m2 DO Joseph Ball Work Phone: [facility] 12-11-2023 08:37-0400 Body weight 84.82 kg DO Joseph Ball Work Phone: [facility] 12-11-2023 08:37-0400 Diastolic blood pressure 77 mm[Hg] DO Joseph Ball Work Phone: [facility] 12-11-2023 08:37-0400 Heart rate 91 /min DO Joseph Ball Work Phone: [facility] 12-11-2023 08:37-0400 Respiratory rate 12 /min DO Joseph Ball Work Phone: [facility] 12-11-2023 08:37-0400 Systolic blood pressure 123 mm[Hg] DO Joseph Ball Work Phone: [facility] 10-14-2023 10:42-0400 Body mass index (BMI) [Ratio] 27.4 kg/m2 NA Tammy JOHNS Work Phone: [facility] 10-14-2023 10:42-0400 Body temperature 97.5 [degF] NA Tammy JOHNS Work Phone: [facility] 10-14-2023 10:42-0400 Body weight 85.4 kg NA Tammy JOHNS Work Phone: [facility] 10-14-2023 10:42-0400 Diastolic blood pressure 79 mm[Hg] NA Tammy JOHNS Work Phone: [facility] 10-14-2023 10:42-0400 Heart rate 89 /min MEHUL Munoz MD Work Phone: [facility] 10-14-2023 10:42-0400 Respiratory rate 16 /min MEHUL Munoz MD Work Phone: [facility] 10-14-2023 10:42-0400 SaO2% (BldA) [Mass fraction] 95 % MEHUL Munoz MD Work Phone: [facility] 10-14-2023 10:42-0400 Systolic blood pressure 124 mm[Hg] MEHUL Munoz MD Work Phone: [facility] 09-21-2023 11:15-0400 Blood Pressure Location Emmanuel REJI [facility] 09-21-2023 11:15-0400 Diastolic blood pressure 80 mm[Hg] Emmanuel MENDOZA [facility] 09-21-2023 11:15-0400 Heart rate 70 /min Emmanuel MENDOZA [facility] 09-21-2023 11:15-0400 Respiratory rate 16 /min Emmanuel MENDOZA [facility] 09-21-2023 11:15-0400 Systolic blood pressure 132 mm[Hg] Emmanuel MENDOZA [facility] 06-12-2023 08:30-0500 Body height 175.26 cm Joseph Ball Other [employer] [facility] [employer] Other 06-12-2023 08:30-0500 Body mass index (BMI) [Ratio] 29.03 kg/m2 Joseph Ball Other [employer] [employer] Other 06-12-2023 08:30-0500 Body weight 89.18 kg Joseph Ball Other [employer] Other 06-12-2023 08:30-0500 Diastolic blood pressure 88 mm[Hg] Joseph Ball Other [employer] Other 06-12-2023 08:30-0500 Respiratory rate 12 /min Joseph Ball Other [employer] Other 06-12-2023 08:30-0500 Systolic blood pressure 135 mm[Hg] Joseph Ball Other [employer] Other 03-25-2023 08:54-0400 Blood Pressure Location Emmanuel MENDOZA [facility] 03-25-2023 08:54-0400 Diastolic blood pressure 84 mm[Hg] Emmanuel MENDOZA [facility] 03-25-2023 08:54-0400 Heart rate 87 /min Emmanuel MENDOZA [facility] 03-25-2023 08:54-0400 Systolic blood pressure 127 mm[Hg] Emmanuel MENDOZA [facility] 12-10-2022 08:30-0400 Body height 175.26 cm Joseph Ball Other [facility] [employer] Other 12-10-2022 08:30-0400 Body mass index (BMI) [Ratio] 28.7 kg/m2 Joseph Ball Other [facility] [employer] Other 12-10-2022 08:30-0400 Body weight 88.18 kg Joseph Ball Other [facility] [employer] Other 12-10-2022 08:30-0400 Diastolic blood pressure 84 mm[Hg] Joseph Ball Other [facility] [employer] Other 12-10-2022 08:30-0400 Respiratory rate 12 /min Joseph Ball Other [facility] [employer] Other 12-10-2022 08:30-0400 Systolic blood pressure 132 mm[Hg] Joseph Ball Other [employer] Other 10-16-2022 13:42-0400 Body temperature 97.3 [degF] MEUHL Munoz MD Work Phone: [facility] 10-16-2022 13:42-0400 Body weight 89.54 kg MEHUL Munoz MD Work Phone: [facility] 10-16-2022 13:42-0400 Diastolic blood pressure 87 mm[Hg] MEHUL Munoz MD Work Phone: [facility] 10-16-2022 13:42-0400 Heart rate 93 /min MEHUL Munoz MD Work Phone: [facility] 10-16-2022 13:42-0400 Respiratory rate 16 /min MEHUL Munoz MD Work Phone: [facility] 10-16-2022 13:42-0400 SaO2% (BldA) [Mass fraction] 96 % MEHUL Munoz MD Work Phone: [facility] 10-16-2022 13:42-0400 Systolic blood pressure 150 mm[Hg] MEHUL Munoz MD Work Phone: [facility] 09-10-2022 09:59-0400 Blood Pressure Location Emmanuelsaira MENDOZA [facility] 09-10-2022 09:59-0400 Diastolic blood pressure 87 mm[Hg] Emmanuel MENDOZA [facility] 09-10-2022 09:59-0400 Heart rate 89 /min Emmanuel MENDOZA [facility] [facility] 09-10-2022 09:59-0400 Systolic blood pressure 140 mm[Hg] Emmanuelsaira MENDOZA [facility] 06-11-2022 15:30-0500 Body height 175.26 cm Joseph Ball Other [employer] Other 06-11-2022 15:30-0500 Body mass index (BMI) [Ratio] 28.76 kg/m2 Joseph Ball Other [employer] Other 06-11-2022 15:30-0500 Body weight 88.36 kg Joseph Ball Other [employer] Other 06-11-2022 15:30-0500 Diastolic blood pressure 84 mm[Hg] Joseph Ball Other [employer] Other 06-11-2022 15:30-0500 Respiratory rate 12 /min Joseph Ball Other [employer] Other 06-11-2022 15:30-0500 Systolic blood pressure 122 mm[Hg] Joseph Ball Other [place] [employer] Other 04-17-2022 13:23-0500 Body temperature 97.9 [degF] MEHUL Munoz MD Work Phone: [facility] 04-17-2022 13:23-0500 Body weight 87.09 kg MEHUL Munoz MD Work Phone: [facility] 04-17-2022 13:23-0500 Diastolic blood pressure 80 mm[Hg] MEHUL Munoz MD Work Phone: [facility] 04-17-2022 13:23-0500 Heart rate 90 /min MEHUL Munoz MD Work Phone: [facility] 04-17-2022 13:23-0500 Respiratory rate 16 /min MEHUL Munoz MD Work Phone: [facility] 04-17-2022 13:23-0500 SaO2% (BldA) [Mass fraction] 96 % MEHUL Munoz MD Work Phone: [facility] 04-17-2022 13:23-0500 Systolic blood pressure 137 mm[Hg] MEHUL Munoz MD Work Phone: [facility] 03-05-2022 09:26-0400 Blood Pressure Location Emmanuel MENDOZA [facility] 03-05-2022 09:26-0400 Diastolic blood pressure 86 mm[Hg] Emmanuel MENDOZA [facility] 03-05-2022 09:26-0400 Heart rate 87 /min Emmanuel MENDOZA [facility] 03-05-2022 09:26-0400 Systolic blood pressure 139 mm[Hg] Emmanuel MENDOZA [facility] 11-27-2021 09:37-0400 Blood Pressure Location Emmanuel MENDOZA [facility] 11-27-2021 09:37-0400 Diastolic blood pressure 89 mm[Hg] Emmanuel MENDOZA [facility] 11-27-2021 09:37-0400 Heart rate 80 /min Emmanuel MENDOZA [facility] 11-27-2021 09:37-0400 Systolic blood pressure 142 mm[Hg] Emmanuel MENDOZA [facility] 11-14-2021 11:32-0400 Body temperature 97.59 [degF] MEHUL Munoz MD Work Phone: [facility] 11-14-2021 11:32-0400 Body weight 86.64 kg MEHUL Munoz MD Work Phone: [facility] 11-14-2021 11:32-0400 Diastolic blood pressure 83 mm[Hg] MEHUL Munoz MD Work Phone: [facility] 11-14-2021 11:32-0400 Heart rate 82 /min MEHUL Munoz MD Work Phone: [facility] 11-14-2021 11:32-0400 Respiratory rate 16 /min MEHUL Munoz MD Work Phone: [facility] 11-14-2021 11:32-0400 SaO2% (BldA) [Mass fraction] 97 % MEHUL Munoz MD Work Phone: [facility] 11-14-2021 11:32-0400 Systolic blood pressure 130 mm[Hg] MEHUL Munoz MD Work Phone: [facility] 10-10-2021 09:17-0400 Body temperature 96.69 [degF] MEHUL Munoz MD Work Phone: [facility] 10-10-2021 09:17-0400 Body weight 88.45 kg MEHUL Munoz MD Work Phone: [facility] 10-10-2021 09:17-0400 Diastolic blood pressure 80 mm[Hg] MEHUL Munoz MD Work Phone: [facility] 10-10-2021 09:17-0400 Heart rate 98 /min MEHUL Munoz MD Work Phone: [facility] 10-10-2021 09:17-0400 Respiratory rate 16 /min MEHUL Munoz MD Work Phone: [facility] 10-10-2021 09:17-0400 SaO2% (BldA) [Mass fraction] 98 % MEHUL Munoz MD Work Phone: [facility] 10-10-2021 09:17-0400 Systolic blood pressure 137 mm[Hg] MEHUL Munoz MD Work Phone: [facility] Encounters Encounter Date Encounter Type Care Provider Facility Start: 09-19-2024 ambulatory Emmanuel Jain ty:KRYSTYNA Torres Start: 03-10-2024 Non-patient / Non-visit DO Saleem Camacho Work Phone: [facility] Work Phone: Start: 03-10-2024 End: 03-10-2024 Admission to same day surgery center DO Joseph Camacho Work Phone: [facility] Work Phone: Start: 03-10-2024 End: 03-10-2024 ambulatory DO Joseph Camacho Work Phone: [facility] Work Phone: Start: 12-11-2023 End: 12-11-2023 Patient encounter procedure DO Joseph Camacho Work Phone: [facility] Work Phone: Start: 10-14-2023 End: 10-14-2023 ambulatory La MUNOZ Facility:[facility] Start: 10-14-2023 End: 10-14-2023 Patient encounter procedure La Munoz MD Work Phone: Radiation Oncology Comment on above: History of prostate cancer (Primary Dx) Start: 09-21-2023 End: 09-21-2023 ambulatory Emmanuel MENDOZA Facility:[facility] Start: 09-21-2023 End: 09-21-2023 Patient encounter procedure Emmanuel MENDOZA [facility] Start: 06-23-2023 End: 06-23-2023 ambulatory Joseph Camacho Other [employer] Other Start: 06-23-2023 Telephone encounter Joseph Camacho FP [facility] Start: 06-12-2023 End: 06-12-2023 ambulatory Joseph Camacho Other [employer] Other Start: 06-12-2023 Patient encounter procedure Joseph Camacho [facility] Start: 03-25-2023 End: 03-25-2023 Patient encounter procedure Emmanuel MENDOZA [facility] [place] Start: 12-24-2022 End: 12-24-2022 ambulatory Joseph Camacho Other [employer] Other Start: 12-24-2022 Telephone encounter Joseph Camacho FRANCA [facility] Start: 12-10-2022 End: 12-10-2022 ambulatory Joseph Camacho Other [employer] Other Start: 12-10-2022 Office outpatient vi sit 25 minutes Joseph Camacho [facility] Start: 10-20-2022 End: 10-20-2022 ambulatory Joseph Camacho Other [employer] Other Start: 10-20-2022 Telephone encounter Joseph Doug SCHULTE [facility] Start: 10-16-2022 End: 10-16-2022 ambulatory Flor Kim APRN.CNP Work Phone: Hematology/Oncology Comment on above: Prostate cancer (HCC ) Start: 10-16-2022 End: 10-16-2022 Patient encounter procedure La Munoz MD Work Phone: Radiation Oncology Comment on above: History of prostate cancer (Primary Dx) Start: 09-10-2022 End: 09-10-2022 ambulatory Joseph Camacho Other [employer] Other Start: 09-10-2022 Telephone encounter Joseph Doug SCHULTE [facility] Start: 09-10-2022 End: 09-10-2022 Patient encounter procedure Emmanuel MENDOZA [facility] Start: 09-08-2022 End: 09-09-2022 ambulatory EMMANUEL MENDOZA Facility:[facility] Start: 06-24-2022 End: 06-25-[address] JOSEPH CAMACHO Facility:[facility] Start: 06-11-2022 End: 06-11-2022 ambulatory Joseph Camacho Other [employer] Other Start: 06-11-2022 Patient encounter procedure Joseph Camacho [facility] Start: 04-17-2022 End: 04-17-2022 Patient encounter procedure La Munoz MD Work Phone: Radiation Oncology Comment on above: Prostate cancer (HCC ) (Primary Dx) Start: 04-15-2022 End: 04-16-[address] AUDRA MUNOZ Facility:[facility] Start: 03-05-2022 End: 03-05-2022 Patient encounter procedure Emmanuel MENDOZA [facility] Start: 03-03-2022 End: 03-04-2022 ambulatory EMMANUEL MENDOZA Facility:[facility] Start: 11-27-2021 End: 11-27-2021 Patient encounter procedure Emmanuel MENDOZA [facility] Start: 11-14-2021 End: 11-14-2021 Patient encounter procedure La Munoz MD Work Phone: Radiation Oncology Comment on above: Prostate cancer (HCC ) (Primary Dx) Start: 11-14-2021 End: 11-15-[address] JOSEPH CAMACHO Facility:[facility] Start: 11-01-2021 Patient encounter procedure La Munoz MD Work Phone: [facility] Start: 11-01-2021 Radiation Oncology Note La Munoz MD Work Phone: Radiation Oncology Comment on above: Simulation Note Start: 11-01-2021 End: 11-01-2021 Subsequent hospital visit by physician Pet Ct Scan [facility] Work Phone: Radiology Pet CT Start: 10-14-2021 Patient encounter procedure [facility] Provider [facility] Department Start: 10-10-2021 End: 10-10-2021 Patient encounter procedure La Munoz MD Work Phone: Radiation Oncology Comment on above: Prostate cancer (HCC ) (Primary Dx) Start: 10-03-2021 End: 10-03-2021 ambulatory EMMANUEL MENDOZA Facility:[facility] Start: 10-03-2021 End: 10-03-2021 Patient encounter procedure La Munoz MD Work Phone: Radiation Oncology Comment on above: Malignant neoplasm o f prostate (HCC) (Primary Dx) Start: 10-02-2021 Encounter for preprocedural laboratory examination EMMANUELSAIRA MENDOZA [facility] Start: 09-30-2021 End: 10-01-2021 ambulatory EMMANUEL MENDOZA Facility:[facility] Start: 09-30-2021 End: 10-01-2021 Encounter for preprocedural laboratory examination EMMANUEL MENDOZA Facility:[facility] Start: 09-23-2021 Encounter for preprocedural cardiovascular examination EMMANUEL [facility] Start: 09-23-2021 Encounter for preprocedural laboratory examination EMMANUEL [facility] Start: 09-18-2021 End: 09-19-2021 ambulatory EMMANUEL MENDOZA Facility:[facility] Start: 09-18-2021 End: 09-19-2021 Encounter for preprocedural cardiovascular examination EMMANUEL MENDOZA Facility:[facility] Procedures Date Procedure Procedure Detail Performing Clinician Start: 03-10-2024 Colonoscopy DO Louise Camacho Work Phone: Start: 09-17-2023 PSA screening [facility] Provi carlos Start: 09-30-2022 Cystoscope, device (physical object) Emmanuel MENDOZA Start: 09-08-2022 End: 09-08-2022 PSA screening [facility] Provider Comment on above: Performed By: #### C VDTBH #### [facility] [address] [place] [address] Dr. Mk Griffin Start: 04-15-2022 End: 04-15-2022 PSA screening [facility] Provider Comment on above: Performed By: #### P SAD #### [facility] [address] [address] [address] Mk Griffin Start: 03-03-[address] AUDRA MUNOZ Comment on above: Performed By: #### P SAD #### [facility] [address] [place] [address] Dr. Mk Griffin Start: 10-03-2021 Brachytherapy Emmanuel CHACON Start: 07-25-2021 MRI-US fusion guided prostate biopsy Emmanuel MENDOZA Start: 02-07-2020 Cystoscopy to remove object Emmanuel MENDOZA Start: 02-02-2020 Lithotripsy Emmanuel GRANT Start: 06-08-2018 Colonoscopy Emmanuel GRANT Start: 03-13-2016 Extracorporeal shock wave lithotripsy of calculus of kidney Emmanuel MENDOZA Comment on above: w/ Left stent remova l Start: 02-17-2016 Cystoscopy and retro grade pyelography Emmanuel MENDOZA Comment on above: w/ left stent placee ment Appendectomy Emmanuel MENDOZA Bilateral replacemen t of knee joints Emmanuel MENDOZA Plan of Treatment Date Care Activity Detail Author Start: 10-10-2026 RSV Vaccine (1 - 1-d ose 75+ series) RSV Vaccine (1 - 1-dose 75+ series) [facility] Start: 10-12-2024 End: 10-12-2024 Patient encounter procedure 10/12/2024 10:00 AM EDT Office Visit Radiation Oncology [address] [place] [address] La Munoz MD [address] [place] [address] [place] [address] 2 yr rv Radiation Oncology Comment on above: 2 yr rv Start: 03-10-2024 [facility] Start: 02-07-2024 Covid-19 Vaccine ( season) Covid-19 Vaccine ( season) [facility] Start: 02-07-2024 Influenza vaccination C [facility] Start: 06-08-2023 Advance Directive Discussion Advance Directive Discussion [facility] Start: 06-08-2023 Behavioral Health Screening Behavioral Health Screening [facility] Start: 02-06-2023 Covid-19 Vaccine () Covid-19 Vaccine () [facility] Start: 02-06-2023 Influenza vaccination INFLUENZA (Sea son Ended) [facility] Start: 10-15-2022 End: 12-15-2022 Prostate specific Ag [Mass/volume] in Serum or Plasma PSA/PROSTSPECAG DIAG Lab Routine Prostate cancer ([facility]) Expected: 10/15/2022, Expires: 12/15/2022 [facility] Work Phone: Comment on above: Expected: 10/15/2022 , Expires: 12/15/2022 Start: 06-08-2022 ADVANCE DIRECTIVE DISCUSSION ADVANCE DIRECTIVE DISCUSSION [facility] Start: 06-08-2022 DEPRESSION ASSESSMENT DEPRESSION ASS ESSMENT [facility] Start: 02-06-2022 Influenza vaccination [facility] Start: 11-10-2021 End: 01-10-2022 Prostate specific Ag [Mass/volume] in Serum or Plasma PSA/PROSTSPECAG DIAG Lab Routine Prostate cancer ([facility]) Expected: 11/10/2021 (Approximate), Expires: 01/10/2022 [facility] Work Phone: Comment on above: Expected: 11/10/2021 (Approximate), Expires: 01/10/2022 Start: 09-15-2021 COVID-19 VACCINE (4 - Booster for Pfizer series) COVID-19 VACCINE (4 - Booster for Pfizer series) [facility] Start: 07-12-2021 COVID-19 VACCINE (4 - Booster for Pfizer series) COVID-19 VACCINE (4 - Booster for Pfizer series) [facility] Start: 07-12-2021 COVID-19 VACCINE (5 - Booster for Pfizer series) COVID-19 VACCINE (5 - Booster for Pfizer series) [facility] Start: 06-08-2021 ADVANCE DIRECTIVE DISCUSSION ADVANCE DIRECTIVE DISCUSSION [facility] Start: 06-08-2021 DEPRESSION ASSESSMENT DEPRESSION ASS ESSMENT [facility] Start: 05-28-2019 Pneumococcal Vaccine : 65+ (2 of 2 - PPSV23 or PCV20) Pneumococcal Vaccine: 65+ (2 of 2 - PPSV23 or PCV20) [facility] Start: 10-10-2016 PNEUMOCOCCAL: 65+ (1 - PCV) PNEUMOCOCCAL: 65+ (1 - PCV) [facility] Start: 10-10-2016 PNEUMOVAX AGE 65 AND OVER WITH 5YR LOOKBACK (#1) PNEUMOVAX AGE 65 AND OVER WITH 5YR LOOKBACK (#1) [facility] Start: 2011 RSV Vaccine (1 - 1-d ose 60+ series) RSV Vaccine (1 - 1-dose 60+ series) [facility] Start: 10-10-2001 SHINGRIX VACCINE (1 of 2) SHINGRIX VACCINE (1 of 2) [facility] Start: 10-10-1996 COLOGUARD (FIT-DNA) COLOGUARD (FIT-D NA) [facility] Start: 10-10-[address] [facility] Start: 10-10-1996 COLORECTAL CANCER SCREENING COLORECTAL CANCER SCREENING [facility] Start: 10-10-[address] COLONOGRAPHY [facility] Start: 10-10-1996 DIABETES SCREEN DIABETES SCREEN [facility] Start: 10-10-1996 Diabetes Screening Diabetes Screenin g [facility] Start: 10-10-1996 FECAL OCCULT BLOOD FECAL OCCULT BLOO D [facility] Start: 10-10-1996 Screening for malign ant neoplasm of colon [facility] Start: 10-10-1996 SIGMOIDOSCOPY SIGMOIDOSCOPY [facility] Start: 10-10-1986 Lipid panel Lipid Screening [facility] Start: 10-10-1986 LIPID SCREEN LIPID SCREEN [facility] Start: 10-10-1970 SHINGRIX VACCINE (1 of 2) SHINGRIX VACCINE (1 of 2) [facility] Start: 10-10-[address] [facility] Start: 10-10-1969 Anxiety Screening Anxiety Screening [facility] Start: 10-10-1969 Depression Screening Depression Scre ening [facility] Start: 10-10-1969 HEPATITIS C SCREENING HEPATITIS C [facility] Start: 10-10-1969 Hepatitis C screening Hepatitis C [facility] Start: 1963 Adult depression screening assessment DEPRESSION SCREENING [facility] Start: 10-10-1957 PNEUMOCOCCAL: 65+ (1 - PCV) PNEUMOCOCCAL: 65+ (1 - PCV) [facility] Start: 1950 ABDOMINAL AORTIC ANEURYSM SCREENING ABDOMINAL AORTIC ANEURYSM SCREENING [facility] Start: 1950 Abdominal aortic aneurysm screening Abdominal Aortic Aneurysm Screening [facility] Patient Education Hemorrhoids (D C) Diverticulosis (DC) Colon Polypectomy (DC) Know your [facility] Work Phone[facility] Immunizations Immunization Date Immunization Notes Care Provider Kelly rodriguez 06-12-2023 influenza virus vaccine, unspecified formulation DO Joseph Camacho Work Phone: [facility] 06-12-2023 influenza, high dose seasonal, preservative-free Joseph Camacho Other [employer] Other 05-17-2021 SARS-CoV-2 (COVID-19 ) mRNA BNT-162b2 vax Emmanuel MENDOZA [facility] 05-08-2021 SARS-CoV-2 (COVID-19 ) mRNA BNT-162b2 vax Emmanuel MENDOZA [facility] 11-01-2020 SARS-CoV-2 (COVID-19 ) mRNA BNT-162b2 vax [employer] [facility] 10-27-2020 SARS-CoV-2 (COVID-19 ) mRNA BNT-162b2 vax Emmanuel MENDOZA [facility] 10-09-2020 SARS-CoV-2 (COVID-19 ) mRNA BNT-162b2 vax Emmanuel MENDOZA [facility] 05-13-2019 pneumococcal polysaccharide vaccine, 23 valent Joseph Camacho Other [facility] 05-28-2018 pneumococcal conjuga te vaccine, 13 valent Emmanuel MENDOZA [facility] 11-12-2004 hepatitis B vaccine, adult dosage Emmanuel MENDOZA [facility] 06-11-2004 hepatitis B vaccine, adult dosage Emmanuel MENDOZA [facility] 05-07-2004 hepatitis B vaccine, adult dosage Emmanuel MENDOZA [facility] Payers Date Payer Category Payer Self-pay [id number] 2020 Unknown ANTONIO ALVAREZ ME DICARE SUPPLEMENT [id number] 2020-Present [phone] [id number] [place], [place] [id number] Indemnity [id number] 2020 Unknown ANTONIO ACOSTA DICARE SUPPLEMENT [id number] 2020-Present [id number] [place], [place] [id number] Indemnity [id number] 2016 Medicare MEDICARE MEDICAR E A AND B [id number] 2016-Present [phone] [place] [address] Medicare [id number] 2016 Medicare MEDICARE MEDICAR E A AND B [id number] 2016-Present [phone] [place] [address] Medicare [id number] 1959 Blue Cross [facility] [id number] 1959 Medicare [id number] 1951 Unknown [id number] [id number] 1951 Unknown [id number] [id number] 1951 Unknown [id number] [id number] 1951 Unknown [id number] [id number] 1951 Unknown [id number]. [id number] 1951 Unknown [id number]. [id number] 1951 Unknown [id number]. [id number] 1951 Unknown [id number]. [id number] 1951 Unknown [id number]. [id number] 1951 Unknown [id number] [id number] Unknown [facility] [employer] [id number] Unknown [id number] [id number] Social History Date Type Detail Facility Start: 08-14-2021 End: 03-10-2024 Tobacco smoking status NHIS Ex-smoker [facility] Comment on above: Quit in 1978 Start: 06-08-1971 End: 06-08-1978 History of tobacco use Current smoker [facility] Start: 06-08-1971 End: 06-08-1978 History of tobacco use Cigarette Smoker [facility] Start: 08-14-2021 End: 10-16-2022 Cigarettes smoked current (pack per day) - Reported 1 [facility] Start: 08-14-2021 End: 04-17-2022 Tobacco use and exposure Smokeless tobacco non-user [facility] Start: 08-14-2021 End: 10-14-2023 Alcohol intake Current drinker of alcohol (finding) [facility] Start: 08-14-2021 History SDOH Alcohol Comment Occasional [facility] Start: 1950 Sex Assigned At Male [facility] Start: 09-30-2021 End: 04-17-2022 Exposure to SARS-CoV-2 (event) Not sure [facility] Tobacco smoking status Never [facility] [employer] Comment on above: Quit in 1978 Start: 08-14-2021 End: 10-14-2023 Sex Assigned At Male [facility] [employer] Start: 09-10-2021 Sexual orientation Heterosexual (christine guido) [facility] Goals Date Patient Goal Desired Activity /State Functional Status Date Assessment Result Facility 09-21-2023 Functional Status N/A [facility] 03-25-2023 Functional Status N/A [facility] 09-10-2022 Functional Status N/A [facility] 03-05-2022 Functional Status N/A [facility] 11-27-2021 Functional Status N/A [facility] [employer] Clinical Notes 10-03-2021 to 03-10-2024 Nelida Ash RN - 10/14/2023 10:46 AM La Tao MD - 10/14/2023 10:46 AM EDT Note Date & Type Note Facility 03-10-2024 Procedure note [facility] 10-14-2023 Note HNO ID: [id number] Author: NELIDA ASH RN Service: ? Author Type: Registered Nurse Type: Progress Notes Filed: 10/20/2023 10:09 Note Text: AUA= 5 Nelida Ash RN [facility] 10-14-2023 Note HNO ID: [id number] Author: La MUNOZ MD Service: ? Author Type: Physician Type: Progress Notes Filed: 10/20/2023 10:09 Note Text: Radiation Oncology - Follow Up Note PATIENT NAME: Lamont Luzt PATIENT DIAGNOSIS: Prostate adenocarcinoma, initial PSA 5.93, biopsy Irma score 3 + 3 = 6 (grade group 1), clinical stage T1c, N0, M0, stage I [cT1a-c/T2a, N0, M0, PSA <10, GG 1] (AJCC 8th ed.), s/p MR Targeted biopsy. RADIATION SUMMARY: Prostate I-125 brachytherapy implant, 10/03/2021, 145 Gy, 85 sources, 32.81 mCi. INTERVAL HISTORY: Doing well. No new problems or concerns. 11/14/21:Doing well. Still with some increased urinary urgency and frequency occasional dysuria. Overall improving. No hematuria. PSA HISTORY: PSA (ng/mL) Date Value 10/28/2021 7.79 PSA. (no units) Date Value 09/17/2023 1.17 09/08/2022 1.48 04/15/2022 2.03 ALLERGIES No Known Allergies tamsulosin (FLOMAX) 0.4 mg Take by mouth. amLODIPine-benazepril (LOTREL) 5-20 mg per capsule Take 1 capsule by mouth once daily. atorvastatin (LIPITOR) 20 mg tablet Take 20 mg by mouth daily at bedtime. Ngibnjtoqmzbk-Vajwqqyn-Icwlhb (MULTIVITAMIN 50 PLUS) tab Take 1 tablet by mouth once daily. (Patient not taking: Reported on 10/14/2023) REVIEW OF SYSTEMS: D/N = 4-6/1-3 Hematuria: no AUA: 5 Bowel movement frequency: 1/day Bowel movement quality: normal Blood per rectum: none Androgen deprivation: Never. PHYSICAL EXAM: BP 124/79 Pulse 89 Temp 36.4 ?C (97.5 ?F) (Temporal) Resp 16 Wt 85.4 kg (188 lb 4.4 oz) SpO2 95% BMI 27.40 kg/m? KPS: 100 General appearance: Alert and oriented. No acute distress. Rectal exam def Extremities: No deformities, edema, skin discoloration, clubbing or cyanosis. Lymph Nodes: No cervical lymphadenopathy, No supraclavicular lymphadenopathy, No axillary lymphadenopathy. Skin: Skin color, texture, turgor normal, no suspicious rashes or lesions. ASSESSMENT/PLAN: Prostate adenocarcinoma, initial PSA 5.93, biopsy Columbiana score 3 + 3 = 6 (grade group 1), clinical stage T1c, N0, M0, stage I [cT1a-c/T2a, N0, M0, PSA <10, GG 1] (AJCC 8th ed.), s/p MR Targeted biopsy. Status post prostate brachytherapy implant September 2021. Doing well. PSA continues to decline. He continues close follow-up with Dr. Mendoza including surveillance of his PSA. Otherwise asked patient come back in 1 year for further post radiation follow-up visit. Signed by: La Munoz MD cc: Joseph Camacho ([facility]) [address] [place] [address] Dr. Mendoza [facility] 10-14-2023 History of Present illness Narrative AUA= 5 Nelida Ash RN Radiation Oncology - Follow Up Note PATIENT NAME: Lamont Lutz PATIENT DIAGNOSIS: Prostate adenocarcinoma, initial PSA 5.93, biopsy Columbiana score 3 + 3 = 6 (grade group 1), clinical stage T1c, N0, M0, stage I [cT1a-c/T2a, N0, M0, PSA <10, GG 1] (AJCC 8th ed.), s/p MR Targeted biopsy. RADIATION SUMMARY: Prostate I-125 brachytherapy implant, 10/03/2021, 145 Gy, 85 sources, 32.81 mCi. INTERVAL HISTORY: Doing well. No new problems or concerns. 11/14/21:Doing well. Still with some increased urinary urgency and frequency occasional dysuria. Overall improving. No hematuria. PSA HISTORY: PSA (ng/mL) Date Value 10/28/2021 7.79 PSA. (no units) Date Value 09/17/2023 1.17 09/08/2022 1.48 04/15/2022 2.03 ALLERGIES No Known Allergies tamsulosin (FLOMAX) 0.4 mg Take by mouth. amLODIPine-benazepril (LOTREL) 5-20 mg per capsule Take 1 capsule by mouth once daily. atorvastatin (LIPITOR) 20 mg tablet Take 20 mg by mouth daily at bedtime. Gfrvlgryqtucy-Rmnkmttl-Cfbodr (MULTIVITAMIN 50 PLUS) tab Take 1 tablet by mouth once daily. (Patient not taking: Reported on 10/14/2023) REVIEW OF SYSTEMS: D/N = 4-6/1-3 Hematuria: no AUA: 5 Bowel movement frequency: 1/day Bowel movement quality: normal Blood per rectum: none Androgen deprivation: Never. PHYSICAL EXAM: BP 124/79 Pulse 89 Temp 36.4 C (97.5 F) (Temporal) Resp 16 Wt 85.4 kg (188 lb 4.4 oz) SpO2 95% BMI 27.40 kg/m KPS: 100 General appearance: Alert and [...] 2021. Doing well. PSA continues to decline. He continues close follow-up with Dr. Mendoza including surveillance of his PSA. Otherwise asked patient come back in 1 year for further post radiation follow-up visit. Signed by: La Munoz MD cc: Joseph Camacho (Helen) [address] [place] [id number] Mendoza documented in this encounter [facility] 09-21-2023 Hospital Discharge instructions Patient Education 09/21/2023 11:44:59 Prostate Cancer Screening Prostate Cancer Screening Prostate cancer screening is testing that is done to check for the presence of prostate cancer in men. The prostate gland is a walnut-sized gland that is located below the bladder and in front of the rectum in males. The function of the prostate is to add fluid to semen during ejaculation. Prostate cancer is one of the most common types of cancer in men. Who should have prostate cancer screening? Screening recommendations vary based on age and other risk factors, as well as between the professional organizations who make the recommendations. In general, screening is recommended if: You are age 50 to 70 and have an average risk for prostate cancer. You should talk with your health care provider about your need for screening and how often screening should be done. Because most prostate cancers are slow growing and will not cause , screening in this age group is generally reserved for men who have a 10- to 15-year life expectancy. You are younger than age 50, and you have these risk factors: ?Having a father, brother, or uncle who has been diagnosed with prostate cancer. The risk is higher if your family member's cancer occurred at an early age or if you have multiple family members with prostate cancer at an early age. ?Being a male who is Black or is of [place] or sub-Saharan descent. In general, screening is not recommended if: You are younger than age 40. You are between the ages of 40 and 49 and you have no risk factors. You are 70 years of age or older. At this age, the risks that screening can cause are greater than the benefits that it may provide. If you are at high risk for prostate cancer, your health care provider may recommend that you have screenings more often or that you start screening at a younger age. How is screening for prostate cancer done? The recommended prostate cancer screening test is a blood test called the prostate-specific antigen (PSA) test. PSA is a protein that is made in the prostate. As you age, your prostate naturally produces more PSA. Abnormally high PSA levels may be caused by: Prostate cancer. An enlarged prostate that is not caused by cancer (benign prostatic hyperplasia, or BPH). This condition is very common in older men. A prostate gland infection (prostatitis) or urinary tract infection. Certain medicines such as male hormones (like testosterone) or other medicines that raise testosterone levels. A rectal exam may be done as part of prostate cancer screening to help provide information about the size of your prostate gland. When a rectal exam is performed, it should be done after the PSA level is drawn to avoid any effect on the results. Depending on the PSA results, you may need more tests, such as: A physical exam to check the size of your prostate gland, if not done as part of screening. Blood and imaging tests. A procedure to remove tissue samples from your prostate gland for testing (biopsy). This is the only way to know for certain if you have prostate cancer. What are the benefits of prostate cancer screening? Screening can help to identify cancer at an early stage, before symptoms start and when the cancer can be treated more easily. There is a small chance that screening may lower your risk of dying from prostate cancer. The chance is small because prostate cancer is a slow-growing cancer, and most men with prostate cancer from a different cause. What are the risks of prostate cancer screening? The main risk of prostate cancer screening is diagnosing and treating prostate cancer that would never have caused any symptoms or problems. This is called overdiagnosisand overtreatment. PSA screening cannot tell you if your PSA is high due to cancer or a different cause. A prostate biopsy is the only procedure to diagnose prostate cancer. Even the results of a biopsy may not tell you if your cancer needs to be treated. Slow-growing prostate cancer may not need any treatment other than monitoring, so diagnosing and treating it may cause unnecessary stress or other side effects. Questions to ask your health care provider When should I start prostate cancer screening? What is my risk for prostate cancer? How often do I need screening? What type of screening tests do I need? How do I get my test results? What do my results mean? Do I need treatment? Where to find more information The [place] Cancer Society: www.cancer.org [place] Urological Association: www.auanet.org Contact a health care provider if: You have difficulty urinating. You have pain when you urinate or ejaculate. You have blood in your urine or semen. You have pain in your back or in the area of your prostate. Summary Prostate cancer is a common type of cancer in men. The prostate gland is located below the bladder and in front of the rectum. This gland adds fluid to semen during ejaculation. Prostate cancer screening may identify cancer at an early stage, when the cancer can be treated more easily and is less likely to have spread to other areas of the body. The prostate-specific antigen (PSA) test is the recommended screening test for prostate cancer, but it has associated risks. Discuss the risks and benefits of prostate cancer screening with your health care provider. If you are age 70 or older, the risks that screening can cause are greater than the benefits that it may provide. This information is not intended to replace advice given to you by your health care provider. Make sure you discuss any questions you have with your health care provider. Document Revised: 11/18/2021 Document Reviewed: 11/18/2021 [employer] Patient Education 2022 [employer]. Follow Up Care 03/25/2023 09:33:30 With:REJI JOHNS, Emmanuel Pascual, URL Address: [facility] [address] , [place] [address]- [phone] When: Unknown Comments:1 yr w/ PSA [facility] [place] 06-23-2023 Evaluation note Encounter Date Diagnosis Assessment Notes Jun, Type 2 diabetes mellitus with hyperglycemia , without long-term current use of insulin (ICD-10 - E11.65) [facility] Other 01-05-2024 Evaluation note* Encounter Date Diagnosis [...] High risk medication use (ICD-10 - Z79.899) [facility] Other 10-18-2023 Hospital Discharge instructions Patient Education [...] including vitamins, herbs, eye drops, creams, and aowf-eww-oebasnu medicines. Any problems you or family members [...] provider tells you to take them. ?Taking mxes-toy-qfvujwu medicines, vitamins, herbs, and supplements. Follow your [...] provider. Document Revised: 08/21/2021 Document Reviewed: 08/21/2021 [employer] Patient Education 2022 [employer]. Follow Up Care 09/10/2022 11:05:18 With:REJI JOHNS, Emmanuel Pascual, URL Address: [facility] [address] , [place] [address]- When: Unknown [facility] 07-05-2023 Evaluation note* Encounter Date Diagnosis Assessment [...] Microalbumin, Dilated eye exam and Foot exam [facility] Other 05-15-2023 Evaluation note* Encounter Date Diagnosis Assessment Notes Treatment Notes Treatment Clinical Notes October, Prostate cancer (ICD-10 - C61) brachytherapy [facility] Other 05-11-2023 History of Present illness Narrative* Flor Kim APRN.TRIPE WASHER - 10/16/2022 2:13 PM EDT Lamont Lutz returns for scheduled follow-up. Patient was seen and examined by Dr. Munoz today.He has recovered from brachytherapy to the prostate. He is having some sexual dysfunction. He has tried Cialis in the past without success. [facility]. Patient was given treatment summary and survivorship care plan for prostate cancer. Flor Kim APRN.CONSTANTINO [facility] History of Past illness Narrative* Problem Noted Date Resolved Date Prostate cancer 10/16/2022 10/16/2022 documented as of this encounter (statuses as of 10/16/2022) [facility] History of Past illness Narrative* Problem Noted Date Resolved Date Prostate cancer 10/16/2022 10/16/2022 documented as of this encounter (statuses as of 10/16/2022) [facility] History of Present illness Narrative* La Munoz MD - 10/16/2022 1:42 PM EDT Radiation Oncology - Follow Up Note PATIENT NAME: Lamont Lutz PATIENT DIAGNOSIS: Prostate adenocarcinoma, initial PSA 5.93, biopsy Columbiana score 3 + 3 = 6 (grade [...] 20 mg by mouth daily at bedtime. Wjxnbexcxxgls-Tqbihbcg-Ekemfu (MULTIVITAMIN 50 PLUS) tab Take 1 tablet [...] La Munoz MD cc: Joseph Camacho (Helen) [address] [place], [place] [id number] Dr. Mendoza documented in [facility]St[facility] Evaluation note* Encounter Date Diagnosis Assessment Notes Treatment Notes Treatment Clinical Notes Sep, Prostate cancer (ICD-10 - C61) brachytherapy [facility] Other 04-05-2023 Hospital Discharge instructions Patient Education [...] who: Are older than age 65. Are -[place]izen [place]. Are obese. Have a family history of [...] cells. Follow these instructions at home: Take qhno-mfi-jwsulfx and prescription medicines only as told by [...] 05/25/2006 Document Revised: 05/07/2018 Document Reviewed: 02/02/2017 [employer] Patient Education 2020 [employer]. Follow Up Care 03/05/2022 10:08:53 With:REJI JOHNS, Emmanuel Pascual, URL Address: [facility] [address] , [place] [address]- When: Unknown [facility] 01-04-2023 Evaluation note* Encounter Date Diagnosis Assessment [...] reviewed and amended by provider signed below. [facility] Other 11-10-2022 History of Present illness Narrative* G Jessica Munoz MD - 04/17/2022 1:31 PM EST [...] 20 mg by mouth daily at bedtime. Pvinorrwjzqef-Gisugeuu-Dwrfqm (MULTIVITAMIN 50 PLUS) tab Take 1 tablet [...] La Munoz MD cc: Joseph Camacho (Helen) [facility] [place] [address] [address]. Mendoza documented in this encounterSt[facility] Nurse Note* Vianey Gaspar LPN - 04/17/2022 1:23 PM EST AUA=19 documented in this encounterSt[facility]09[facility] Hospital Discharge instructions Patient Education 03/05/2022 10:06:03 [...] urethra. Follow these instructions at home: Take qrwh-dxm-wrghlhg and prescription medicines only as told by [...] 05/25/2006 Document Revised: 04/19/2019 Document Reviewed: 06/29/2017 [employer] Patient Education 2020 [employer] 03/05/2022 10:06:00 Calorie Counting for Weight [...] 05/25/2006 Document Revised: 02/11/2019 Document Reviewed: 04/24/2017 [employer] Patient Education 2020 [employer] Follow Up Care 11/27/2021 09:59:26 With:REJI JOHNS, Emmanuel Pascual, URL Address: [address] [place] [address] [place] [address]- Business (1) When:Within 6 Month(s) Comments:w/YA [facility] Josie 06-22-2022 Hospital Discharge instructions Patient Education 11/27/2021 [...] 05/25/2006 Document Revised: 02/11/2019 Document Reviewed: 04/24/2017 [employer] Patient Education 2020 [employer]. 11/27/2021 09:53:53 Brachytherapy for Prostate Cancer, Care [...] of fruits and vegetables. General instructions Take nwjj-rwx-xxwhnnq and prescription medicines only as told by [...] 06/27/2011 Document Revised: 05/07/2018 Document Reviewed: 06/26/2017 [employer] Patient Education 2020 [employer]. Follow Up Care 10/22/2021 08:23:16 With:REJI JOHNS, Emmanuel Pascual, URL Address: [address] [place] [address]- [facility] (1) When:Within 3 Month(s) Comments:w/YA [facility] Josie [id number] Nurse Note* Vianey Gaspar LPN - 11/14/2021 11:34 AM EDT AUA= 12 documented in this encounterSt[facility]06-[facility] History of Present illness Narrative* La Munoz [...] 20 mg by mouth daily at bedtime. Zeqhmmtehjclx-Urplbrnm-Dkmzhm (MULTIVITAMIN 50 PLUS) tab Take 1 tablet [...] ASSESSMENT/PLAN: Prostate adenocarcinoma, initial PSA 5.93, biopsy Columbiana score 3 + 3 = 6 (grade [...] by: La Munoz MD cc: Joseph Camacho ([facility]) [address] [place] [address] Dr. Mendoza documented in this encounterSt. [facility]05-27-[facility] History of Present illness Narrative* La Munoz MD - 11/01/2021 12:00 AM EDT Patient: Lamont Lutz Date:11/01/2021 [facility] Department of Radiation Oncology [facility] RADIATION ONCOLOGY POST SEED IMPLANT SIMULATION NOTE [...] procedure will commence following simulation. Electronically Signed JESSICA MUNOZ M.D. 23:18 PM documented in this encounterSt. [facility] Hospital05-05-2022 History of Present illness Narrative* La Munoz [...] 20 mg by mouth daily at bedtime. Pckoazmyuemcu-Zgjwoaxq-Tvtjes (MULTIVITAMIN 50 PLUS) tab Take 1 tablet [...] ASSESSMENT/PLAN: Prostate adenocarcinoma, initial PSA 5.93, biopsy Columbiana score 3 + 3 = 6 (grade [...] by: La Munoz MD cc: Joseph Camacho ([facility]) [address] [place] [address] Reji documented in this encounterSt. [facility] Hospital04-28-2022 History of Present illness Narrative* La Munoz MD - 10/03/2021 3:19 PM EDT Date: 10/03/2021 Facility: [facility] Procedure: prostate transperineal brachytherapy implant Diagnosis: Prostate [...] documented. Gaetano Munoz MD documented in this encounterSt. [facility]04-28-2022 NotePROCEDURE: XR PELVIS 1_2 VIEWS HISTORY: Carcinoma of prostate COMPARISON: None. FINDINGS: Single intraoperative spot fluoroscopic image demonstrates numerous radioactive seeds confined to region of prostate. Urinary bladder is filled with contrast without evidence of extravasation. IMPRESSION: Radioactive prostate seeding without evidence of bladder disruption. Electronically authenticated by: WILY VERAS Date: 2021-10-03 10:12[facility] App[facility]ments Appointment Date:03/05/2022 09:15:00 AM Scheduled Provider:Emmanuel MENDOZA MD Location:[facility] Appointment Type:URO Office Visit Diagnostic Tests Pending * PSA Total 11/27/21 [facility] Evaluation + Plan note Future Appointments Appointment Date:09/10/2022 09:45:00 AM Scheduled Provider:Emmanuel MENDOZA MD Location:[facility] Appointment Type:URO Office Visit Diagnostic Tests Pending * PSA Total 03/05/22 [facility] Evaluation + Plan note Future Appointments Appointment Date:09/30/2022 01:15:00 PM Scheduled Provider:Emmanuel MENDOZA MD [facility] Appointment Type:URO Procedure 15 min Appointment Date:03/25/2023 08:45:00 AM Scheduled Provider:Emmanuel [facility]ZA MD [facility] Type:URO Office Visit Diagnostic Tests Pending * PSA Total 09/10/22 * Urine Cytology ([facility]) 09/10/22 [facility] Evaluation + Plan note Future Appointments Appointment Date:09/21/2023 10:45:00 AM Scheduled Provider:Emmanuel MENDOZA MD Location:[facility] Appointment Type:URO Office Visit Diagnostic Tests Pending * PSA Total 03/25/23 [facility] [place] Evaluation + Plan note Future Appointments Appointment Date:09/19/2024 08:45:00 AM Scheduled Provider:Emmanuel MENDOZA MD Location:[facility] Appointment Type:URO Office Visit Diagnostic Tests Pending * PSA Total 09/21/23 [facility] evaluation note* Diagnosis Malignant neoplasm of prostate (HCC)- Primary Malignant neoplasm of prostate [facility] Diagnosis Prostate cancer (HCC)- Primary Malignant neoplasm of prostate [facility]* Diagnosis Prostate cancer (HCC)- Primary Malignant neoplasm of prostate [facility]* Diagnosis Prostate cancer (HCC)- Primary Malignant neoplasm of prostate [facility]* Diagnosis History of prostate cancer- Primary Personal history of malignant neoplasm of prostate [facility]* Diagnosis Prostate cancer (HCC) Malignant neoplasm of prostate [facility] noteNo [employer] Other evaluation note* Diagnosis History of prostate cancer- Primary Personal history of malignant neoplasm of prostate [facility]* Diagnosis Onset Date Resolution Status Hypercholesterolemia acute Hypertension acute Overweight acute Prostate cancer acute Type 2 diabetes mellitus with hyperglycemia acute [facility] Work Phone: History and physical note Author Reno Chaparro [facility] March 10, 2024 12:37pm Note Date/Time March 10, 2024 12 :37pm [facility] [address] [place] [address] Gastroenterology H&P Signed Patient: Lamont Lutz MR#: [id number] : 1950 Acct:[id number] Age/Sex: 73 / M Adm Date: 4 Loc: Room: Type: [facility] Attending Dr: Reno Chaparro MD Copies to: DO Reno Mensah MD~ Date of Service: 03/10/2024 HISTORY & PHYSICAL: Patient's history with special attention to the cardiovascular, pulmonary systems and the current problem was reviewed with the patient immediately prior to the procedure. Present medications and doses reviewed in the EMR. Allergies and pertinent laboratory tests were also reviewedat this time in the EMR. The physical examination, as below, was then performed. Indication, assessment and HPI: 73-year-old man with family history of colon cancer(brother) here for screening colonoscopy Family history of GI malignancy? Yes PHYSICAL EXAMINATION General appearance: NAD Skin: No jaundice Head: NC/AT Eyes: Anicteric Neck: Supple Lungs: Normal respiratory effort, no use of accessory muscles Abdomen: nondistended Neuro: Ox3. REVIEW OF SYSTEMS Constitutional: Denies malaise, fevers Cardiovascular: Denies chest pain, palpitations Respiratory: Denies shortness of breath, wheezing Gastrointestinal: As per HPI Genitourinary: Denies dysuria, polyuria Musculoskeletal: Denies joint swelling, joint stiffness Neurological: Denies confusion, numbness, tingling Endocrine: Denies fatigue Written informed consent obtained from the patient. Risks (including but not limited to perforation, infection, bloating, bleeding, need for emergent surgeryand loss of life), benefits and alternatives explained and questions answered. The patient verbalized understanding. Based on history patient is an appropriate candidate for the procedure. Reno Chaparro M.D. Documented By: Reno Chaparro MD 03/10/24 1234 Signed By: <Electronically signed by Reno Chaparro MD> 03/10/24 1237 [facility] Work Phone: History general Narrative - Reported* Type Description Date Medical History Hypertension Medical History Prostate cancer Medical History IFG (impaired fasting glucose) Medical History Hyperlipidemia type II Medical History History of nephrolithiasis Medical History Erectile dysfunction due to samantha rial insufficiency Surgical History knee replacement-right Surgical History appendectomy Surgical History knee arthroscopy-bilateral Surgical History kidney stone Surgical History transrectal ultrasound with bio psy 07.25.21 Surgical History cystoscopy with left ureterosco py 08.27.20 Surgical History lithotripsy of left kidney 08.2 7.22 Surgical History colonoscopy - repeat every 5 ye ars 08..29 Surgical History left TKA .2016 Surgical History cystoscopy and left ureteral st ent .2015 Hospitalization History see above [facility] Other History general Narrative - Reported* Type Description Date [...] left kidney 08.2 7. Surgical History colonoscopy (repeat every 5 yea rs) 12/2018 Surgical History left TKA .2016 Surgical History cystoscopy and left ureteral st ent .2015 Hospitalization History see above [facility] Other Hospital course Narrative No data available for this section [facility] Josie [employer] Progress note No data available for this section [facility] [place] [employer] Summary Purpose Family History No Family History Records Found Relationship Condition Age at Onset Recorded Date/T guillermina brother Malignant neoplasm Unknown daughter Diabetes mellitus Unknown father Hypertension Unknown mother Unknown Diabetes mellitus Unknown Advance Directives No Advanced Directives Records Found Advance Directive Response Recorded Date/ Time Advance Directives No 2020 7:24pm Chief Complaint and Reason for Visit Chief Complaint 6 month follow up Fm Hx of colon cancer Fm Hx of colon cancer Reason for Visit Hypercholesterolemia Hypertension Overweight Prostate cancer Type 2 diabetes mellitus with hyperglycemia Additional Source Comments Source Comments (unrecognize d section and content) In the event this informatio n is protected by the Federal Confidentiality of Alcohol and Drug Abuse Patient Records regulations: The Federal rules restrict any use of the information to criminally investigate or prosecute any alcohol or drug abuse patient.[facility] the event this information is protected by the Federal Confidentiality of Alcohol and Drug Abuse Patient Records regulations: The Federal rules restrict any use of the information to criminally investigate or prosecute any alcohol or drug abuse patient.[facility] HospitalIn the event this information is protected by the Federal Confidentiality of Alcohol and Drug Abuse Patient Records regulations: The Federal rules restrict any use of the information to criminally investigate or prosecute any alcohol or drug abuse patient.[facility] HospitalIn the event this information is protected by the Federal Confidentiality of Alcohol and Drug Abuse Patient Records regulations: The Federal rules restrict any use of the information to criminally investigate or prosecute any alcohol or drug abuse patient.[facility] HospitalIn the event this information is protected by the Federal Confidentiality of Alcohol and Drug Abuse Patient Records regulations: The Federal rules restrict any use of the information to criminally investigate or prosecute any alcohol or drug abuse patient.[facility] HospitalIn the event this information is protected by the Federal Confidentiality of Alcohol and Drug Abuse Patient Records regulations: The Federal rules restrict any use of the information to criminally investigate or prosecute any alcohol or drug abuse patient.[facility] HospitalIn the event this information is protected by the Federal Confidentiality of Alcohol and Drug Abuse Patient Records regulations: The Federal rules restrict any use of the information to criminally investigate or prosecute any alcohol or drug abuse patient.[facility] HospitalIn the event this information is protected by the Federal Confidentiality of Alcohol and Drug Abuse Patient Records regulations: The Federal rules restrict any use of the information to criminally investigate or prosecute any alcohol or drug abuse patient.[facility] HospitalIn the event this information is protected by the Federal Confidentiality of Alcohol and Drug Abuse Patient Records regulations: The Federal rules restrict any use of the information to criminally investigate or prosecute any alcohol or drug abuse patient.[facility] HospitalIn the event this information is protected by the Federal Confidentiality of Alcohol and Drug Abuse Patient Records regulations: The Federal rules restrict any use of the information to criminally investigate or prosecute any alcohol or drug abuse patient.[facility] Reason for Visit (unrecogniz ed section and content) Specialty Diagnoses / Procedures Referred By Can t Referred To Contact Radiation Oncology / RADIATION ONCOLOGY Diagnoses Malignant neoplasm of prostate Seed Implant at [facility] Procedures SEED IMPLANT La Munoz MD [address] [place] [address] [place] [address] La Munoz MD [address] [place] [address] [place] [address] Referral ID Status Reason Start Date Expiration Date V isits Requested Visits Authorized [id number] Authorized 10/03/2021 06/07/2022 99 99 Reason Comments Prostate Cancer Care Teams (unrecognized sec tion and content) Pulp Cooker Relationship Specialty Start Date End Date Joseph Camacho DO [address] [place] [address] PCP - General Internal Medicine 08/02/21 Emmanuel Mendoza MD [address] [place] [address] Referring Urology 08/02/21 Pulp Cooker Relationship Specialty Start Date End Date Joseph Camacho, DO [address] [place] [facility] [place] [address] PCP - General Internal Medicine 08/02/21 Emmanuel Mendoza MD [address] [place] [address] Referring Urology 08/02/21 Pulp Cooker Relationship Specialty Start Date End Date Joseph Camacho Frankie, DO [address] [place] [facility] [place] [address] PCP - General Internal Medicine 08/02/21 Emmanuel Mendoza MD [address] [place] [address] Referring Urology 08/02/21 Pulp Cooker Relationship Specialty Start Date End Date Doug Joseph Frankie, DO [address] [facility] [place] [address] PCP - General Internal Medicine 08/02/21 Emmanuel Mendoza MD [address] [place] [address] Referring Urology 08/02/21 Pulp Cooker Relationship Specialty Start Date End Date Doug Joseph Frankie, DO [address] [facility] [place] [address] PCP - General Internal Medicine 08/02/21 Emmanuel Mendoza MD [address] [place] [address] Referring Urology 08/02/21 Pulp Cooker Relationship Specialty Start Date End Date DougJoseph, DO [address] [facility] [place] [address] PCP - General Internal Medicine 08/02/21 Emmanuel Mendoza MD [address] [place] [address] Referring Urology 08/02/21 Pulp Cooker Relationship Specialty Start Date End Date Joseph Camacho DO PCP - General Internal Medicine 08/02/21 Emmanuel Mendoza MD [address] [place] [address] Referring Urology 08/02/21 Pulp Cooker Relationship Specialty Start Date End Date Joseph Camacho DO PCP - General Internal Medicine 08/02/21 Emmanuel Mendoza MD [address] [place] [address] Referring Urology 08/02/21 Pulp Cooker Relationship Specialty Start Date End Date Joseph Camacho DO PCP - General Internal Medicine 08/02/21 Emmanuel Mendoza MD [address] [place] [address] Referring Urology 08/02/21 Pulp Cooker Relationship Specialty Start Date End Date Joseph Camacho DO PCP - General Internal Medicine 08/02/21 Emmanuel Mendoza MD [address] [place] [address] Referring Urology 08/02/21 Team Status: Active Member Role Status Dates Joseph Camacho DO Primary Care Provider Active Team Status: Inactive Member Role Status Dates Joseph Camacho DO Primary Care Provide r, Attending Provider Active Start: December 11, 2023 End: December 11, 2023 Team Status: Inactive Member Role Status Dates Joseph Camacho DO Primary Care Provider Active Start: March 10, 2024 End: March 10, 2024 Reno Chaparro MD Attending Provider Active Start: March 10, 2024 End: March 10, 2024 Team Status: Active Member Role Status Dates Joseph Camacho DO Primary Care Provider Active Start: March 10, 2024 Reno Chaparro MD Attending Provider, Other Provider Active Start: March 10, 2024 (unrecognized sect ion and content) No Status Records FoundNo Status Records FoundNo Status Records FoundNo Status Records Found INFORMATION SOURCE (unrecogn ized section and content) DATE CREATED AUTHOR 09/13/2022 [facility] DATE CREATED AUTHOR AUTHOR'S ORGANIZ ATION 10/22/2023 [facility] DATE CREATED AUTHOR AUTHOR'S ORGANIZ ATION 03/23/2024 [facility] DATE CREATED AUTHOR AUTHOR'S ORGANIZ ATION 09/11/2024 [facility] FOR RECORDS PERTAINING TO PATIENTS WHO ARE [...] BE BASED ON THE PRIMARY CLINICAL RECORDS. [facility] [employer] provides no warranty or guarantee of the accuracy or completeness of information in this document.
[2024-09-15 10:55] LABS: Prostate Specific Antigen Dx 0.34 ng/mL (<=4.00)
== END 2024-09-15 09:31 | disposition home or self-care (01) ==
LOC: LAB 09:34
PROVIDERS: PCP Internal Medicine; Visit Provider Urology
DX: C61 Malignant neoplasm of prostate (principal)
CPT/HCPCS: 36415; 84153

== ENCOUNTER 2025-05-27 14:10 | Emergency (ER) | payer MEDICARE, BC, SELFPAY ==
[2025-05-27 14:17] VITALS: BP 145/82; PULSE 89; TEMP 36.8; O2SAT 95; BMI 27.0
--- OUTSIDE RECORDS SUMMARY | 2025-05-27 14:36 | XMS_ITS | Clinical Summary ---
Author Organization [facility] Address [address] [place] [address] Care Team Providers Care Smoked Meat Preparer Name Role Phone DougJoseph Frankie GUILLEN Primary Care Provider [phone] Emmanuel Mendoza MD Unavailable [phone] Allergies No known active allergies Medications MedicationSigDispense QuantityRefillsLast FilledStart DateEnd DateStatus amLODIPine-benazepril (LOTREL) 5-20 mg per capsule Take 1 capsule by mouth once daily.06/16/2021ctive atorvastatin (LIPITOR) 20 mg tablet Take 20 mg by mouth daily at bedtime.07/07/2021ctive tamsulosin (FLOMAX) 0.4 mg Take by mouth.09/10/2022ctive Active Problems No known active problems Resolved Problems ProblemNoted DateDiagnosed DateResolved DateProstate obmmta64/04/2023 Encounters DateTypeDepartmentCare LoxcGlmfxinjgvi49/12/2025 Patient Msg Cancer Appts [address] [place] [address] Provider, Cc Change of appointmentfrom Last 3 Months Family History Medical HistoryRelationCommentsProstate CancerPaternal Uncle 1Prostate Cancer Paternal Uncle 2RelationStatusCommentsPaternal Uncle 1AlivePaternal Uncle 2Alive Social History Tobacco UseTypesPacks/DayYears UsedDateSmoking Tobacco: [id number] - 1978Smokeless Tobacco: Never Tobacco Cessation:Counseling Given: Not Answered Alcohol UseStandard Drinks/WeekCommentsYes0 (1 standard drink = 0.6 oz pure alcohol)OccasionalPHQ-2AnswerDate RecordedPHQ-2 /06/2025Area Deprivation IndexAnswerDate RecordedNational Score (1-100), lower number is lower risk80 10/16/2022State Score (1-10), lower number is lower dxai2633Data from: https://www.neighborhoodatlas.medicine.[facility].edu/. Last address used for [address] [place] [address]/16/2022Sex and Gender InformationValueDate RecordedSex Assigned at ZqbjwKthx31/05/2022 6:06 PM EDTLegal HqvTtqy1708/02/2021 8:53 AM EST Gender IdentityNot on fileSexual MrhpstbdjxuJjjjslcq53/05/2022 6:06 PM EDT Last Filed Vital Signs Vital SignReadingTime TakenCommentsBlood Fpgwedkm086/78010/12/2024 9:48 AM EDT Gebwm333510/12/2024 9:48 AM VPBGtjfppfcfub38.2 ??C (97.1 ??F)10/12/2024 9:48 AM EDTRespiratory Eipw494410/12/2024 9:48 AM EDTOxygen Ryriqnlgnp18%10/12/2024 9:48 AM EDTInhaled Oxygen Concentration--Mgqfqn74.6 kg (188 lb 11.4 oz)10/12/2024 9:48 AM NZQWvtzpm365.5 cm (5' 9.5 )08/14/2021 2:56 PM ESTBody Mass Index27.47 08/14/2021 2:56 PM EST Plan of Treatment DateTypeDepartmentCare Team (Latest Contact Info)Zwzzyjohmrm84/06/2026 9:45 AM EDTOffice Visit Radiation Oncology [address] [place] [address] [place] [address] La Munoz MD [address] [place] [address] [place] [address] 1 year follow upHealth MaintenanceDue DateLast DoneCommentsAbdominal Aortic Aneurysm Zrikedmrr88/05/1952Anxiety Aeetwdtsc45/05/1970Depression Screening 10/10/1969Hepatitis C Kbskdwoxz96/05/1970DTaP,Tdap,Td Vaccine (1 - Tdap) 10/10/1970Lipid Fcihqxhvk05/05/1987CT Uwtpqjufslln20/05/1997Cologuard (FIT-DNA) 10/10/19960972Wwcyvqogfxq76/05/1997Colorectal Cancer Xncpgockz75/05/1997Diabetes Labdyfwxk38/05/1997Fecal Occult Blood10/10/19963358Gpzzckvkcsgpq94/05/1997Shingrix Vaccine (1 of 2)10/10/2001Medicare Annual Wellness Visit10/06/2016Advance Directive Zcngkcwatz98/01/2025Covid-19 Vaccine ( season)2025 05/17/2021, 10/27/2020, 10/09/2020Influenza Vaccine (#1)SV Vaccine (1 - 1-dose 75+ series)10/10/2026Pneumococcal Vaccine: 50+Completed 05/13/2019, 05/28/2018 Insurance Care Teams Team MemberRelationshipSpecialtyStart DateEnd Date Joseph Camacho DO PCP - GeneralInternal Medicine08/02/21 Emmanuel Mendoza MD ReferringUrolog08/02/21
--- OUTSIDE RECORDS SUMMARY | 2025-05-27 14:36 | XMS_ITS ---
Author Organization [facility] Address [address] [place], [place] [address] Care Team Providers Care Face Worker Name Role Phone Joseph Camacho DO Primary Care Provider [phone] Emmanuel Mendoza MD Unavailable [phone] Active Problems No known active problems Current Treatment and Therapy Plans No current plan information found. Past Treatment and Therapy Plans No past plan information found. Treatment Summaries Prostate cancer (HCC)* Treatment Summary and Survivorship Care Plan for Prostate Cancer Provided by: Flor Kim APRN.ACCOUNT SERVICES ANALYST General Information Patient Name: Jack Lutz Patient : 1950 Patient phone: ; Email: [email or web address] Health Care Providers Primary Care Provider: Dr. Joseph Camacho Urologic Surgeon: Dr. Emmanuel Mendoza Radiation Oncologist: Dr. Gaetano Munoz Other Providers: Flor Kim APRN.CNP Treatment Summary Diagnosis Cancer Type: Adenocarcinoma of the Prostate Location: See pathology report Diagnosis Date (year): July 25, 2021 Histology Subtype: Prostate Cancer Stage:I; Clinical stage T1c, N0, M0 Howland Score: 3 + 3 = 6 PSA at Diagnosis: 5.93 Clinical Trial: No Treatment Completed Surgery: Yes Surgery Date(s) (year): July 25, 2021 Surgical procedure/location/findings: MR targeted biopsy; See pathology report; Adenocarcinoma of the Prostate External beam radiation: No Brachytherapy to prostate: Yes: End Date (year): October 03, 2021 RADIATION SUMMARY: Prostate I-125 brachytherapy implant, 10/03/2021, 145 Gy, 85 sources, 32.81 mCi. Systemic Therapy (chemotherapy, hormonal therapy, other): No Presistent symptoms or side effects at completion of treatment: No Follow-up Care Plan Schedule of clinical visits Coordinating Provider When/How often Dr. Gaetano Munoz Every 6 months x2 years, then once yearly Dr. Emmanuel Mendoza Per Dr. Reji Camacho Per Dr. Camacho Cancer surveillance or other recommended related tests Coordinating Provider Test How Often Dr. Gaetano Munoz PSA (Prostate Specific Antigen) Every 6 months x2 years, then once yearly Dr. Emmanuel Mendoza PSA (Prostate Specific Antigen) Per Dr. Reji Camacho Per Dr. Camacho Please continue to see your primary care provider for all general health care recommended for a (man) (women) your age, including cancer screening tests. Any symptoms should be brought to the attention of your provider: 1. Anything that represents a brand new symptom; 2. Anything that represents a persistent symptom; 3. Anything you are worried about that might be related to the cancer coming back. Possible late- and long-term effects that someone with this type of cancer and treatment may experience: Erectile dysfunction, Incontinence, Painful urination, Rectal pain, Shortening of the penis, Skin irritation or darkening, Sterility, Trouble voiding or passing uring (urinary retention), and Urinary frequency Cancer survivors may experience issues with the areas listed below. If you have any concerns in these or other areas, please speak with your doctors or nurses to find out how you can get help with them: anxiety or depression , emotional or mental health, fatigue, fertility, financial advice or assistance, insurance, memory or concentration loss, parenting, physicial functioning, school/work, and sexual functioning A number of lifestyle/behaviors can affect your ongoing health, including the risk for the cancer coming back or developing another cancer. Discuss these recommendations with your doctor or nurse: alcohol use, diet, management of medications, management of other illnesses, physical activity, sun screen use, tobacco use/cessation, and weight management (loss/gain) Resources you may be interested in: www.cancer.net [employer].com Bath Steward/Stewardess Cream Maker Art Therapy Support Groups- Contact Bath Steward/Stewardess for dates and times. Prepared by: Flor Kim APRN.ACCOUNT SERVICES ANALYST Delivered on: October 16, 2022 - This Survivorship Care Plan is a cancer treatment summary and follow-up plan is provided to you to keep with your health care records and to share with your primary care provider. - This summary is a brief record of major aspects of your cancer treatment. You can share your copywith any of your doctors or nurses. However, this is not a detailed or comprehensive record of yourcare. Resolved Problems ProblemNoted DateDiagnosed DateResolved DateProstate
--- OUTSIDE RECORDS SUMMARY | 2025-05-27 14:36 | XMS_ITS | Clinical Summary ---
Author Organization [facility] Healthcare Address [address] [place] [address] Care Team Providers Care Installation And Repair Technician Name Role Phone Unavailable Primary Care Provider Unavailabl e Social History Tobacco UseTypesPacks/DayYears UsedDateSmoking Tobacco: Never AssessedSex and Gender InformationValueDate RecordedSex Assigned at BirthNot on fileLegal Sex Male08/20/2022 9:33 PM EDTGender IdentityNot on fileSexual OrientationNot on file Last Filed Vital Signs Vital SignReadingTime TakenCommentsBlood Mkymgikk549/8205/01/2020 12:00 PM EST Pulse--Temperature--Respiratory Rate--Oxygen Saturation--Inhaled Oxygen Concentration--Mykdlf59.1 kg (192 lb)05/01/2020 12:00 PM YMENxtkwr945.3 cm (5' 9 )05/01/2020 12:00 PM ESTBody Mass Index28.35107/01/2019 12:00 PM EST Plan of Treatment Not on file Insurance
--- NOTE | 2025-05-27 14:46 | PC.NURSE ---
left hand pain, slight swelling to 4th and 5th metatarsals / knuckles. no bruising, redness and skin intact. pt able to move all joints and strong radial pulse present.
--- NOTE | 2025-05-27 14:50 | XR_ITS ---
[facility] [place] [id number] Patient Name: LAMONT WHITFIELD MRN: [id number] date: 1950 Sex: M Assigned Patient Location: ER Current Patient Location: ER Accession/Order Number: [id number] Exam Date: 05/27/2025 14:58 Report Date: 05/27/2025 15:54 At the request of: ANUP PINK MD Procedure: XR hand LT min 3V LEFT HAND - 3 views REASON FOR EXAM: Left arm pain status post fall. COMPARISON: None FINDINGS: There appears be a fracture involving the head of the proximal phalanx of the third digit. Scattered degenerative changes without bony erosions. No focal soft tissue abnormality. XR/XR hand LT min 3V IMPRESSION: THERE APPEARS BE A FRACTURE INVOLVING THE HEAD OF THE PROXIMAL PHALANX OF THE THIRD DIGIT. Impression dictated by: Bjorn Gaffney Jr., DTeraOTera 05/27/2025 3:54 PM Dictation Location: [place] [address] Electronically authenticated by: [id number] Y Date: 05/27/2025 15:54
--- NOTE | 2025-05-27 14:50 | ED.GENADUL1 ---
HPI HPI - General Adult General Chief complaint: Fall Stated complaint: FALL; L HAND PAIN Time Seen by Provider: 05/27/25 14:48 Source: patient Mode of arrival: walk-in Limitations: no limitations History of Present Illness HPI narrative: 74-year-old male presented for left hand pain. He fell when he got dizzy just after 10:00 this morning. No other injury was sustained. No pain of the wrist or elbow. He points to the dorsum of his left hand to indicate that area of pain. He is no longer dizzy. Related Data Allergies Allergy/AdvReac Type Severity Reaction Status Date / Time No Known Drug Allergies Allergy Verified 05/27/25 14:21 Opioid HPI Opioid Management Most Recent Opioid Data: Last Pain Scale 5 Today, 14:17 Review of Systems ROS Narrative A ten point review of systems is negative except as noted above. PFSH PFSH Social History Little interest or pleasure in doing things: not at all Feeling down, depressed, or hopeless: not at all Exam Narrative Exam Narrative: Nurses note and vital signs reviewed General:The patient appears well and in no apparent distress.Patient is resting comfortably on cart. Skin:Warm, dry, no pallor noted.There is no rash noted. Head:Normocephalic, atraumatic Eye: Normal conjunctiva, no drainage Ears, Nose, Mouth, and Throat: oral mucosa is moist. Nares patent. Cardiovascular: Not tachycardic Respiratory:Patient is in no distress, no accessory muscle use Back:non-tender, no CVA tenderness bilaterally to percussion. GI: Soft and nontender Musculoskeletal: The left elbow has a small bruise but has no tenderness and has full range of motion. The left wrist is nontender. He has some tenderness on the dorsum of his left hand. Skin intact. Fingers all have full range of motion. Neurological: Awake and alert Psychiatric:Cooperative Constitutional Vital Signs, click to edit/add: Last Vital Signs Temp 98.3 F 05/27/25 14:17 Pulse 89 05/27/25 14:17 Resp 15 05/27/25 14:17 BP 145/82 H 05/27/25 14:17 Pulse Ox 95 05/27/25 14:17 O2 Del Method Room Air 05/27/25 14:17 Course Vital Signs Vital signs: Vital Signs Temperature 98.3 F 05/27/25 14:17 Pulse Rate 89 05/27/25 14:17 Respiratory Rate 15 05/27/25 14:17 Blood Pressure 145/82 H 05/27/25 14:17 Pulse Oximetry 95 05/27/25 14:17 Oxygen Delivery Method Room Air 05/27/25 14:17 Temperature 98.3 F 05/27/25 14:17 Pulse Rate 89 05/27/25 14:17 Respiratory Rate 15 05/27/25 14:17 Blood Pressure 145/82 H 05/27/25 14:17 Pulse Oximetry 95 05/27/25 14:17 Oxygen Delivery Method Room Air 05/27/25 14:17 Medical Decision Making MDM Narrative Medical decision making narrative: X-ray per radiologist suggested the possibility of a fracture of his proximal phalanx of the third finger. He has no tenderness in that area whatsoever and reports that he has broken that finger twice, years ago. He has no symptoms there and this is not an acute fracture. The x-ray is otherwise negative. He was recommended ice rest and elevation. Treatment diagnosis and follow-up were discussed with the patient. Differential Diagnosis Differential Diagnosis: Contusion, fracture Imaging Data Hand x-ray: Radiologist's impression: ITS Impressions Hand X-Ray 05/27/25 14:50 IMPRESSION: THERE APPEARS BE A FRACTURE INVOLVING THE HEAD OF THE PROXIMAL PHALANX OF THE THIRD DIGIT. Impression dictated by: Bjorn Gaffney Jr., D.O. 05/27/2025 3:54 PM Dictation Location: [place] [address] Electronically authenticated by: [id number] Y Date: 05/27/2025 15:54 Discharge Plan Discharge Chief Complaint: Fall Clinical Impression: Contusion of left hand Patient Disposition: Home, Self-Care Time of Disposition Decision: 16:04 Condition: Good Mode of Transportation: Private Vehicle Print Language: Grenadian Instructions: Contusion in Adults (ED) Referrals: Joseph Camacho DO [Primary Care Provider, Internal Medicine] - 1 week
[2025-05-27 16:14] VITALS: BP 131/82; PULSE 81; O2SAT 97
== END 2025-05-27 16:16 | disposition home or self-care (01) ==
PROVIDERS: Emergency Provider Emergency Medicine; PCP Internal Medicine
DX: S60.222A Contusion of left hand, initial encounter (principal); W19.XXXA Unspecified fall, initial encounter
CPT/HCPCS: 73130; 99284